=== PATIENT | female | born 1960 | race Caucasian/White ===

== ENCOUNTER → 2017-05-01 15:41 | Outpatient (CLI) | payer OTHER, SELFPAY ==
[2017-05-01 16:19] LABS: Hemoglobin 12.4 g/dl (12.0-15.0); Mean Corp Hgb Conc 32.6 g/gl (32-36); Mean Corpuscular Hgb 30.1 pg (27.0-32.0); Mean Corpuscular Volume 92.2 fL (81-99); Platelet Count 207 K/mm3 (150-450); RBC Distribution Width CV 13.4 % (11.6-14.6); Red Blood Count 4.12 M/mm3 (4.2-5.4); White Blood Count 6.8 K/mm3 (4.4-11.0)
[2017-05-01 16:20] LABS: Scan Indicated on CBC? Y/N NO
[2017-05-01 16:44] LABS: ALB/GLOB Ratio 1.1 RATIO (0.9-2.4); AST(SGOT) 30 U/L (15-37); Alanine Aminotransfer ALT/SGPT 44 U/L (13-56); Albumin, Serum 3.7 g/dL (3.2-5.0); Alkaline Phosphatase 125 U/L (45-117); Anion Gap 8 (5-15); BUN 13 mg/dL (7-18); BUN/Creat Ratio 21.4 RATIO (10-20); Calcium,Total 8.7 mg/dL (8.5-10.1); Chloride 102 mmol/L (98-107); Creatinine, Serum 0.61 mg/dL (0.55-1.02); EST Glomerular Filtration Rate 108 mL/min (>60); Est Glom Filt Rate - Afr Amer 131 mL/min (>60); Globulin 3.5 g/dL (2.2-4.2); Glucose 85 mg/dL (74-106); Potassium 3.1 mmol/L (3.5-5.1); Protein, Total 7.2 g/dL (6.4-8.2); Sodium Level 140 mmol/L (136-145)
[2017-05-02 09:42] LABS: Vitamin B12 751 pg/mL (211-911); Vitamin D,25 Hydroxy 72.6 ng/mL (29.95-100.01)
== END ==
PROVIDERS: Family Provider Family Medicine; PCP Family Medicine; Visit Provider Family Medicine
DX: E78.5 Hyperlipidemia, unspecified (principal); E53.8 Deficiency of other specified B group vitamins; E55.9 Vitamin D deficiency, unspecified
CPT/HCPCS: 36415; 80053; 82306; 82607; 85027

== ENCOUNTER → 2017-05-12 15:06 | Outpatient (CLI) | payer OTHER, SELFPAY ==
[2017-05-12 18:12] LABS: Anion Gap 9 (5-15); BUN 14 mg/dL (7-18); BUN/Creat Ratio 15.6 RATIO (10-20); Calcium,Total 8.6 mg/dL (8.5-10.1); Chloride 103 mmol/L (98-107); EST Glomerular Filtration Rate 69 mL/min (>60); Est Glom Filt Rate - Afr Amer 83 mL/min (>60); Glucose 80 mg/dL (74-106); Potassium 3.7 mmol/L (3.5-5.1); Sodium Level 138 mmol/L (136-145)
== END ==
PROVIDERS: Family Provider Family Medicine; PCP Family Medicine; Visit Provider Family Medicine
DX: I10 Essential (primary) hypertension (principal)
CPT/HCPCS: 36415; 80048

== ENCOUNTER → 2017-10-24 14:48 | Outpatient (CLI) | payer OTHER, SELFPAY ==
[2017-10-24 17:33] LABS: ALB/GLOB Ratio 1.1 RATIO (0.9-2.4); AST(SGOT) 25 U/L (15-37); Alanine Aminotransfer ALT/SGPT 31 U/L (13-56); Albumin, Serum 3.6 g/dL (3.2-5.0); Alkaline Phosphatase 110 U/L (45-117); Anion Gap 10 (5-15); BUN 18 mg/dL (7-18); BUN/Creat Ratio 24.8 RATIO (10-20); Calcium,Total 8.6 mg/dL (8.5-10.1); Chloride 103 mmol/L (98-107); Creatinine, Serum 0.73 mg/dL (0.55-1.02); EST Glomerular Filtration Rate 88 mL/min (>60); Est Glom Filt Rate - Afr Amer 106 mL/min (>60); Globulin 3.2 g/dL (2.2-4.2); Glucose 76 mg/dL (74-106); Potassium 3.5 mmol/L (3.5-5.1); Protein, Total 6.8 g/dL (6.4-8.2); Sodium Level 141 mmol/L (136-145); Thyroid Stim Hormone (TSH) 1.65 uIU/mL (0.358-3.74)
[2017-10-24 17:36] LABS: Vitamin B12 > 2000 pg/mL (211-911)
== END ==
PROVIDERS: Family Provider Family Medicine; PCP Family Medicine; Visit Provider Family Medicine
DX: I10 Essential (primary) hypertension (principal); E55.9 Vitamin D deficiency, unspecified; G47.00 Insomnia, unspecified
CPT/HCPCS: 36415; 80053; 82607; 82652; 84443

== ENCOUNTER → 2017-11-14 15:28 | Outpatient (CLI) | payer OTHER, SELFPAY ==
--- NOTE | 2017-11-14 15:33 | BI_ITS ---
MAMMOGRAPHY - BILATERAL SCREENING 3-D SANDRA SYNTHESIS REASON FOR EXAM: Female, 57 years old. Bilateral Screening 3-D tomosynthesis PERTINENT HISTORY: Current esterase since 2017. Loss 15 pounds. Left stereotactic biopsy 2009. No significant family history. TECHNIQUE: 2-D mammograms and 3-D Sandra synthesis of the breast (s) were performed. CAD was performed. COMPARISON: 11/04/2016. FINDINGS: The breast composition is almost entirely fat. Scattered benign calcifications are seen. No dense spiculated dominant masses or suspicious microcalcification cluster are identified. No new architectural distortion, asymmetric density, adenopathy, skin thickening or nipple retraction identified. There has been no significant change identified since the prior study. BI/SCREENING MAMM (CAD), BILAT IMPRESSION: No mammographic sign of malignancy. Routine yearly mammograms recommended. ASSESSMENT CATEGORY: BIRADS Category 2: Benign. A letter regarding these results will be sent to the patient by the facility within 30 days. FOLLOW UP RECOMMENDATION: Yearly follow up mammogram recommended. (A) Negative mammographic results should not deter biopsy as a palpable lesion if present should be followed based on clinical grounds and biopsy performed if clinically persistent for 3 months or increasing size. Approximately 10% of breast cancers are not detected by mammography. A normal mammogram should not delay biopsy of a clinically suspicious abnormality. Dense breast tissue may obscure neoplasm. Electronically Signed: Surya Lam, at 20:51 EDT Tel , Service support ,
== END ==
PROVIDERS: Family Provider Family Medicine; PCP Family Medicine
DX: Z12.31 Encounter for screening mammogram for malignant neoplasm of breast (principal)
CPT/HCPCS: 77063; 77067

== ENCOUNTER → 2018-02-11 11:09 | Outpatient (CLI) | payer OTHER, SELFPAY ==
[2018-02-11 13:15] LABS: Absolute Lymphocyte Count 1.09 X10^3/ul (0.83-4.51); Absolute Neutrophil Count 4.9 X10^3/uL (2.0-7.7); Basophil# 0.05 X10^3/uL; Basophil% 0.8 % (0-1); Eosinophil# 0.13 X10^3/uL; Hematocrit 35.3 % (37-47); Hemoglobin 11.1 g/dl (12.0-15.0); Lymphocyte # 1.09 X10^3/ul (4.0); Lymphocyte % 16.5 % (19-41); Mean Corp Hgb Conc 31.4 g/gl (32-36); Mean Corpuscular Volume 92.2 fL (81-99); Mean Platelet Vol. 12.2 fl (6.2-12.0); Monocyte# 0.49 X10^3/uL; Monocyte% 7.4 % (0-10); Neutrophil # 4.85 X10^3/uL (2.7-7.7); Neutrophil % 73.3 % (47-70); Platelet Count 254 K/mm3 (150-450); RBC Distribution Width CV 13.4 % (11.6-14.6); Red Blood Count 3.83 M/mm3 (4.2-5.4); White Blood Count 6.6 K/mm3 (4.4-11.0)
[2018-02-11 13:16] LABS: Erythrocyte Sedimentation Rate 34 mm/hr (0-30); POSITIVE COUNT NO; POSITIVE DIFFERENTIAL NO; POSITIVE MORPHOLOGY NO
[2018-02-11 13:36] LABS: ALB/GLOB Ratio 0.9 RATIO (0.9-2.4); AST(SGOT) 22 U/L (15-37); Alanine Aminotransfer ALT/SGPT 33 U/L (13-56); Albumin, Serum 3.2 g/dL (3.2-5.0); Alkaline Phosphatase 135 U/L (45-117); Anion Gap 9 (5-15); BUN 12 mg/dL (7-18); BUN/Creat Ratio 19.9 RATIO (10-20); Calcium,Total 8.6 mg/dL (8.5-10.1); Chloride 102 mmol/L (98-107); EST Glomerular Filtration Rate 109 mL/min (>60); Est Glom Filt Rate - Afr Amer 132 mL/min (>60); Globulin 3.5 g/dL (2.2-4.2); Glucose 86 mg/dL (74-106); Iron 80 ug/dL (50-170); Potassium 3.9 mmol/L (3.5-5.1); Protein, Total 6.7 g/dL (6.4-8.2); Sodium Level 138 mmol/L (136-145); Thyroid Stim Hormone (TSH) 3.15 uIU/mL (0.358-3.74)
[2018-02-11 16:05] LABS: Vitamin B12 818 pg/mL (211-911); Vitamin D,25 Hydroxy 57.1 ng/mL (29.95-100.01)
== END ==
PROVIDERS: Family Provider Family Medicine; PCP Family Medicine; Visit Provider Family Medicine
DX: R20.2 Paresthesia of skin (principal); R68.89 Other general symptoms and signs; E55.9 Vitamin D deficiency, unspecified; E53.8 Deficiency of other specified B group vitamins
CPT/HCPCS: 36415; 80053; 82306; 82607; 83540; 83735; 84443; 85025; 85652

== ENCOUNTER 2018-05-25 16:30 | Outpatient (RCR) | payer OTHER, SELFPAY | END 2018-05-25 23:59 | disposition home or self-care (01) | LOC: NS 16:30 | PROVIDERS: Family Provider Family Medicine; PCP Family Medicine; Visit Provider Family Medicine | DX: E66.9 Obesity, unspecified (principal); Z68.43 Body mass index [BMI] 50.0-59.9, adult; Z71.3 Dietary counseling and surveillance | CPT/HCPCS: 97802; 97803 ==

== ENCOUNTER → 2018-11-19 16:16 | Outpatient (CLI) | payer OTHER, SELFPAY ==
[2018-11-19 17:40] LABS: Hematocrit 35.7 % (37-47); Hemoglobin 11.5 g/dL (12.0-15.0); Mean Corp Hgb Conc 32.2 g/dL (32-36); Mean Corpuscular Volume 90.2 fL (81-99); Platelet Count 249 K/mm3 (150-450); RBC Distribution Width CV 12.9 % (11.6-14.6); RBC Distribution Width SD 42.5 fl (35.1-43.9); Red Blood Count 3.96 M/mm3 (4.2-5.4); White Blood Count 7.5 K/mm3 (4.4-11.0)
[2018-11-19 18:12] LABS: ALB/GLOB Ratio 0.9 RATIO (0.9-2.4); AST(SGOT) 22 U/L (15-37); Alanine Aminotransfer ALT/SGPT 26 U/L (13-56); Albumin, Serum 3.5 g/dL (3.2-5.0); Alkaline Phosphatase 126 U/L (45-117); Anion Gap 8 (5-15); BUN 13 mg/dL (7-18); BUN/Creat Ratio 20.1 RATIO (10-20); Calcium,Total 8.9 mg/dL (8.5-10.1); Chloride 101 mmol/L (98-107); Creatinine, Serum 0.65 mg/dL (0.55-1.02); EST Glomerular Filtration Rate 100 mL/min (>60); Est Glom Filt Rate - Afr Amer 121 mL/min (>60); Globulin 3.8 g/dL (2.2-4.2); Glucose 83 mg/dL (74-106); Iron 58 ug/dL (50-170); Potassium 3.1 mmol/L (3.5-5.1); Protein, Total 7.3 g/dL (6.4-8.2); Sodium Level 138 mmol/L (136-145)
[2018-11-19 18:20] LABS: Vitamin B12 460 pg/mL (211-911); Vitamin D,25 Hydroxy 45.7 ng/mL (29.95-100.01)
== END ==
PROVIDERS: Family Provider Family Medicine; PCP Family Medicine; Referring Provider Family Medicine; Visit Provider Family Medicine
DX: D64.9 Anemia, unspecified (principal); I10 Essential (primary) hypertension; E53.8 Deficiency of other specified B group vitamins; E55.9 Vitamin D deficiency, unspecified
CPT/HCPCS: 36415; 80053; 82306; 82607; 83540; 85027

== ENCOUNTER → 2019-06-21 11:31 | Outpatient (CLI) | payer OTHER, SELFPAY ==
--- NOTE | 2019-06-21 11:36 | RAD_ITS ---
STUDY: X-RAY - RIGHT SHOULDER REASON FOR EXAM: Female, 59 years old. Pain, numbness/tingling TECHNIQUE: 4 view(s) of the shoulder. COMPARISON: None. FINDINGS: Normal glenohumeral articulation. There is degenerative arthrosis of the acromioclavicular joint without inferior osseous spur formation. Normal acromion. Normal humeral head and visualized proximal humerus. There is periarticular soft tissue calcification consistent with a calcific tendinitis. Normal visualized pulmonary apex. RAD/Shoulder min 2 Views IMPRESSION: Calcific tendinitis. Degenerative changes of the acromioclavicular joint. Electronically Signed: Jorge Herrmann, at 15:32 EDT , Service support ,
--- NOTE | 2019-06-21 11:36 | RAD_ITS ---
STUDY: X-RAY - LEFT SHOULDER REASON FOR EXAM: Female, 59 years old. Pain, numbness, tingling TECHNIQUE: 4 view(s) of the shoulder. COMPARISON: None. FINDINGS: Normal glenohumeral articulation. There is degenerative arthrosis of the acromioclavicular joint without inferior osseous spur formation. Normal acromion. Normal humeral head and visualized proximal humerus. There is periarticular soft tissue calcification consistent with a calcific tendinitis. Normal visualized pulmonary apex. RAD/Shoulder min 2 Views IMPRESSION: Calcific tendinitis. Degenerative changes of the acromioclavicular joint. Electronically Signed: Jorge Herrmann, at 15:31 EDT , Service support ,
--- NOTE | 2019-06-21 11:37 | RAD_ITS ---
STUDY: X-RAY - CERVICAL SPINE REASON FOR EXAM: Female, 59 years old. Neck pain, numbness and tingling in arms TECHNIQUE: 5 view(s) of the cervical spine were obtained including oblique views. COMPARISON: None FINDINGS: There are degenerative changes of the anterior atlantoaxial articulation. Normal odontoid process. Normal cervical lordosis. There is multi-level endplate spondylosis. There is multi-level degenerative disc disease with multilevel disc space narrowing. Facet joint osteoarthritis. There is evidence of prior anterior listhesis of C4 on C5 most likely secondary to the facet joint arthritis. Left-sided neural foraminal stenosis in the lower cervical spine. The soft tissue structures are unremarkable. RAD/Cerv Spine 4 or 5 Views IMPRESSION: Multilevel spondylosis and disc space narrowing. Anterior listhesis of C4 on C5 most likely secondary to the facet joint osteoarthritis. Findings suggestive of a left-sided neural foraminal stenosis involving the lower cervical spine. Electronically Signed: Jorge Herrmann, at 15:37 EDT , Service support ,
== END ==
PROVIDERS: PCP Family Medicine; Referring Provider Family Medicine; Visit Provider Family Medicine
DX: M54.2 Cervicalgia (principal); M25.512 Pain in left shoulder; M25.511 Pain in right shoulder
CPT/HCPCS: 72050; 73030

== ENCOUNTER 2019-09-15 12:00 | Outpatient (RCR) | payer OTHER, SELFPAY ==
--- NOTE | 2019-06-28 12:50 | HP.PTEVAL_ITS ---
Patient's Visit Information SHAHZAD LAY is a 59 year old F referred to Physical Therapy by Dr. Milton Aparicio MD with a diagnosis of CERVCIAL SPINE OSTEOARTHRITIS.. Date of Evaluation: 06/28/19 Physical Therapist: Natalie Caraballo PT, Cert MDT - Visit Plan Frequency: 2-3x /Week Duration: 4-6 Weeks Plan: TRIAL OF MANUAL CTX AND CONSISDER MECHANICAL TX. US, E-STIM, MH, POSTURE CORRECTION/STRENGTHENING, INSTRUCTION IN APPROPRIATE BODY MECHANICS AND ACTIVITY MODIFICATIONS. SHALONDA UE ROM, STRETCHING AND STRENGTHENING. HEP INSTRUCTION. - Subjective Diagnosis: OA OF NECK. Work/Leisure: WORK IN THE [employer] AT THE [employer]. 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 LIKES TO DO A LOT OF CRAFTS. Disability: NO. Present symptoms: SHALONDA NECK PAIN. CONSTANT OR NEAR CONSTANT SHALONDA UE NUMBNESS AND TINGLING. SHALONDA FOREARM MUSCLE CRAMPS LEFT > RIGHT. SHALONDA UE WEAKNESS. DROPPING THINGS. Present since: ABOUT A YEAR. PROGRESSIVELY GETTING WORSE. Pain Scale: Worst - 7/10 Least - 4/10. Currently: 4/10. Commenced as a result of: NO APPARENT REASON. Symptoms at onset: NUMBNESS IN RIGHT INDEX FINGER AND THUMB. Worse: TRYING TO LIFT HEAVY THINGS, PROLONGED SITTING, PUTTING DISHES AWAY, LIFTING A GALLON OF MILK, WASHING HAIR. Better: NOTHING. Disturbed sleep: YES. Previous history/Previous treatment: UNREMARKABLE PRIOR TO A YEAR AGO. This episode: NONE. Dizziness: ONCE IN AWHILE. Tinnitis: NO. Nausea: NO. Shortness of Breath: NO. Difficulty Swollowing: NO. Gait: PATIENT REPORTS SHE HAS TO WATCH EVERY STEP SHE TAKES AND WALKS SLOW SO SHE DOESN'T TRIP. SHE LOOSES HER BALANCE. USUALLY HAS A CANE WITH HER TO USE NEEDED. ABLE TO GO TO THE GROCERY STORE WITHOUT CANE. ABLE TO WORK WITHOUT CANE. SEVERE SHALONDA KNEE ARTHRIITS. Accidents: NO. Unexplained weight loss: NO. Imaging: RECENT NECK AND SHLD X-RAYS SHOWING OA OF THE NECK PER PATIENT REPORT. [facility] EMR: Multilevel spondylosis and disc space narrowing. Anterior listhesis of C4 on C5 most likely secondary to the facet joint. osteoarthritis. Findings suggestive of a left-sided neural foraminal stenosis involving the. lower cervical spine. PMH/Recent major surgery: SEVERE SHALONDA KNEE OA, GASTRIC BYPASS SX 2008, 2017 PARTIAL HYSTERECTOMY, HTN, DEPRESSION - Objective Sitting Posture/Standing Posture: POOR. FORWARD HEAD AND ROUNDED SHLD'S. Active Correction of posture: BETTER. Other Observations: INDEP ANTALGIC SLOW GAIT INTO PT WITHOUT ANY ASSISTIVE DEVICES WITH A WADDLE TYPE PATTERN. NO LOB. Motor deficit: SHALONDA UE WEAKNESS. RIGHT UE DOMINANT. 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 SHALONDA UE STRENGTH GROSSLY 3+/5 TO 4-/5. Sensory deficit: DECREASED SHALONDA UE LIGHT TOUCH SENSATION INCLUDING ARMS, FOREARMS, HANDS AND FINGERS. ROM deficit: APPROX 30% DECREASED SHALONDA UE ROM. PATIENT REPORTS SHE HAS HAD LIMITED UE ROM FOR A LONG TIME BUT IT IS PROGRESSIVELY GETTING WORSE. Reflexes: NT. Dural Signs: POSITIVE SHALONDA UE'S. Cervical Mvmt Loss: Flex: MIN - PULLING. Pro: NIL. Ext: MOD - INCREASES SHALONDA NECK PAIN. INCREASES SHALONDA UE SX'S. Ret: ELZA - INCREASES SHALONDA NECK PAIN. INCREASES SHALONDA UE SX'S. RSB: MOD - PULLING DOWN IN LEFT SHLD. LSB: MOD - PULLING ON THE RIGHT SHLD. R Rot: MOD - I FEEL IT RUSHING DOWN MY ARMS AGAIN. L Rot: MOD - SAME THING. Postural strength: POOR. OTHER: SEATED CERVICAL DISTRACTION TESTING - MILD DECREASE IN SX'S WITH DISTRACTION BUT SX'S RETURN IMMEDIATELY. Palpation: TENDERNESS WITH LIGHT PALPATION OF SHALONDA NECK AND SHOULDERS. OTHER: PATIENT MAY BENEFIT FROM CERVICAL MRI AND SPECIALIST CONSULT. TREATMENT: NEUROMUSCULAR REEDUCATION - RETRAINING OF MVMT AND POSTURE FOR SITTING, LYING AND STANDING ACTIVITIES. - Goals Goal 1:: DECREASE C/O NECK PAIN AND SHALONDA UE SX'S. Goal Time Frame: 4-6 Weeks Goal 2:: IMPROVE personal care, lifting, walking, sitting, standing, sleep, social life, travel, work and homemaking function. Goal Time Frame: 4-6 Weeks Goal 3:: INSTRUCT IN PROPHYLAXIS Goal Time Frame: 4-6 Weeks - Anticipated Interventions Patient/Client Instruction: Educate patient on: Condition, Plan of Care, Risk Factors, Benefits of Fitness Program For the Purpose of:: To improve self management Therapeutic Exercise to Include: Strength training, Endurance training, Body mechanics, Postural training, Flexibilty training, Neuromotor development, Active ROM, Scapular Strength/Stabilization For the Purpose of:: To decrease pain, To increase ROM, To improve muscle performance and motor function, To increase tolerance to activity/condition/pos ition, To improve ability of physical actions for home/community/work/leisure Manual Therapy Techniques to Include: Mobilization For the Purpose of:: To decrease pain, To increase ROM, To improve nutrient delivery to tissue TENS: Yes IF ES: Yes Cryotherapy (ice pack, ice massage): Yes Thermo therapy (hot pack): Yes Ultrasound (thermal/non thermal): Yes Intermittent cervical traction: Yes - TRY MANUAL FIRST For the Purpose of:: To decrease pain, To improve nutrient delivery to tissue Thank you for the opportunity to evaluate your patient. For Medicare and Medicare HMO plans, please review the plan of care and approve it. It will need to be FAXED BACK to us at [phone] for Medicare purposes. For Medicare only, by signing this I certify the plan of care. Please let me know if there are questions or concerns regarding this plan of care. Physician Signature: Date:
--- NOTE | 2019-09-15 12:49 | HP.PTREVAL_ITS ---
Dr. Milton Gallo MD, It has been my pleasure to treat SHAHZAD LAY over the last 6 visits for CERVCIAL SPINE OSTEOARTHRITIS.. Please see the progress note below for an update on the physical therapy plan of care! Subjective: PATIENT REPORTS SHE STOPPED COMING TO PT DUE TO THE VIRUS. STATES SHE WENT OUT OF STATE ON VACATION AND SHE TRIED TO SELF QUANTINE TO NOT PASS IT TO OTHERS. PATIENT REPORTS THE NUMBNESS IS GOING DOWN HER LEGS NOW TOO. GOES DOWN THE INSIDES OF HER LEGS TO HER TOES NOW. SOMETHING IS REALLY WRONG. STATES THIS STARTED HAPPENING MAINLY AFTER VACATION (ABOUT August) AND IS STEADILY GETTING WORSE. STATES SHE HAS NOT FOLLOWED UP WITH DR. GALLO SINCE BEFORE GOING ON VACATION. STATES SHE SAW DR. GALLO BEFORE VACATION AND SHE TOLD HIM ABOUT GETTING A LITTLE DIZZY AFTER THE TRACTION MACHINE AND SHE STATES HE TOLD HER SHE SHOULD TRY IT AGAIN ANYWAY. PATIENT ALSO REPORTS FALLING TWICE ON VACATION THAT SHE RELATES TO HER KNEES GIVING OUT. STATES SHE WAS MORE EMBARRED THAN HURT IN THE FALLS. PATIENT REPORTS THE NUMBESS IS SPREAD OF HER WHOLE HANDS NOW BILATERALLY. PATIENT REPORTS AN EPISODE OF RIGHT LE SPASMING FOR AN HOUR THAT PUT HER IN TEARS ON THE WAY DOWN TO [place]. ON THE WAY HOME IT DID IT FOR 3 HOURS STRAIGHT. PATIENT REPORTS WHEN SHE ARRIVED IN [place] SHE CALLED DR. GALLO AND HE TOLD HER TO DRINK WATER AND TOLD HER HE THOUGHT IT WAS DEHYDRATION. PATIENT REPORTS SHE CAN'T EVEN USE HER LEFT UE TO WASH HER HAIR NOW AND SHE IS NOT EVEN ABLE TO LIFT THE OJ TO PUT IT BACK IN THE FRIG NOW. PATIENT REPORTS SHE WILL CONTINUE PT IF DR. GALLO WANTS HER TO BUT IT WAS NOT HELPING. STATES SHE GOT REALLY FRUSTRATED TRYING TO EVEN SEW. Objective/Function: PATIENT WAS SEEN TODAY FOR RE-ASSESSMENT OF PROGRESS TOWARD THE SET PT GOALS AND THE NEED FOR FURTHER PHYSICAL THERAPY VS READINESS FOR DISCHARGE. PATIENT HAS HAD TWO FALLS, IS REPORTING WORSENING OF UE SX'S AND HAS NEW ONSET OR WORSENING OF LE SX'S SEEN LAST PHYSICAL THERAPY SESSION AND SINCE LAST PHYSICIAN VISIT. SHE IS APPROPRIATE FOR PHYSICIAN RE-ASSESSMENT PRIOR TO RE-STARTING PT. PATIENT IS AGREEABLE. Plan Plan: CONSIDER TX AGAIN, US, E-STIM, MH, POSTURE CORRECTION/STRENGTHENING, INSTRUCTION IN APPROPRIATE BODY MECHANICS AND ACTIVITY MODIFICATIONS. SHALONDA UE ROM, STRETCHING AND STRENGTHENING. HEP INSTRUCTION. Goals Goal 1:: DECREASE C/O NECK PAIN AND SHALONDA UE SX'S. Goal Time Frame: 4-6 Weeks Goal Progress: Not Progressing Goal 2:: IMPROVE personal care, lifting, walking, sitting, standing, sleep, social life, travel, work and homemaking function. Goal Time Frame: 4-6 Weeks Goal Progress: Not Progressing Goal 3:: INSTRUCT IN PROPHYLAXIS Goal Time Frame: 4-6 Weeks Goal Progress: Not Progressing Anticipated Interventions Patient/Client Instruction: Educate patient on: Condition, Plan of Care, Risk Factors, Benefits of Fitness Program For the Purpose of:: To improve self management Therapeutic Exercise to Include: Strength training, Endurance training, Body mechanics, Postural training, Flexibilty training, Neuromotor development, Active ROM, Scapular Strength/Stabilization For the Purpose of:: To decrease pain, To increase ROM, To improve muscle performance and motor function, To increase tolerance to activity/condition/position, To improve ability of physical actions for home/community/work/leisure Manual Therapy Techniques to Include: Mobilization For the Purpose of:: To decrease pain, To increase ROM, To improve nutrient delivery to tissue TENS: Yes IF ES: Yes Cryotherapy (ice pack, ice massage): Yes Thermo therapy (hot pack): Yes Ultrasound (thermal/non thermal): Yes Intermittent cervical traction: Yes - TRY MANUAL FIRST For the Purpose of:: To decrease pain, To improve nutrient delivery to tissue Please do not hesitate to contact me at [phone] by phone or if you have questions or concerns regarding this new plan of care! Sincerely, Natalie Caraballo, PT, Cert MDT
--- NOTE | 2019-12-13 18:18 | HP.PT.NRP ---
SHAHZAD LAY was seen in my office for initial evaluation on 06/28/19. The following Plan of Care was established for this patient: Initial Frequency: 2-3x /Week Initial Duration: 4-6 Weeks Patient/Client Instruction: Educate patient on: Condition, Plan of Care, Risk Factors, Benefits of Fitness Program For the Purpose of:: To improve self management Therapeutic Exercise to Include: Strength training, Endurance training, Body mechanics, Postural training, Flexibilty training, Neuromotor development, Active ROM, Scapular Strength/Stabilization For the Purpose of:: To decrease pain, To increase ROM, To improve muscle performance and motor function, To increase tolerance to activity/condition/position, To improve ability of physical actions for home/community/work/leisure Manual Therapy Techniques to Include: Mobilization For the Purpose of:: To decrease pain, To increase ROM, To improve nutrient delivery to tissue TENS: Yes IF ES: Yes Cryotherapy (ice pack, ice massage): Yes Thermo therapy (hot pack): Yes Ultrasound (thermal/non thermal): Yes Intermittent cervical traction: Yes - TRY MANUAL FIRST For the Purpose of:: To decrease pain, To improve nutrient delivery to tissue This patient was last seen in our office 09/15/19. Pertinent comments regarding their Physical therapy will appear below: This patient has not returned to Physical Therapy and is appropriate to return to MD for further follow-up as needed. At this point I will be discontinuing this patient from physical therapy. I would be happy to see this patient again in the future if found appropriate by the physician. Thank you! Natalie Caraballo, PT, Cert MDT
== END 2019-09-15 19:00 | disposition home or self-care (01) ==
LOC: PT 12:00
PROVIDERS: PCP Family Medicine; Referring Provider Family Medicine; Visit Provider Family Medicine
DX: M47.812 Spondylosis without myelopathy or radiculopathy, cervical region (principal)
CPT/HCPCS: 97012; 97014; 97035; 97110; 97112; 97140; 97162; 97164; 97530; G0283

== ENCOUNTER → 2019-09-21 12:29 | Outpatient (CLI) | payer OTHER, SELFPAY ==
[2019-09-21 15:12] LABS: Absolute Lymphocyte Count 1.54 X10^3/uL (0.83-4.51); Absolute Neutrophil Count 6.7 X10^3/uL (2.0-7.7); Basophil# 0.08 X10^3/uL; Basophil% 0.9 % (0-1); Eosinophil# 0.26 X10^3/uL; Eosinophils% 2.8 % (0-5); Hematocrit 37.3 % (37-47); Hemoglobin 11.5 g/dL (12.0-15.0); Lymphocyte # 1.54 X10^3/ul (4.0); Lymphocyte % 16.5 % (19-41); Mean Corp Hgb Conc 30.8 g/dL (32-36); Mean Platelet Vol. 12.3 fl (6.2-12.0); Monocyte# 0.73 X10^3/uL; Monocyte% 7.8 % (0-10); NRBC Flagged by Analyzer 0 % (0-5); Neutrophil # 6.73 X10^3/uL (2.7-7.7); Neutrophil % 71.8 % (47-70); Platelet Count 352 K/mm3 (150-450); RBC Distribution Width SD 42.8 fl (35.1-43.9); White Blood Count 9.4 K/mm3 (4.4-11.0)
[2019-09-21 15:15] LABS: Erythrocyte Sedimentation Rate 23 mm/hr (0-30)
[2019-09-21 15:19] LABS: Vitamin B12 302 pg/mL (211-911); Vitamin D,25 Hydroxy 52.3 ng/mL
[2019-09-21 15:23] LABS: ALB/GLOB Ratio 0.9 RATIO (0.9-2.4); AST(SGOT) 21 U/L (15-37); Alanine Aminotransfer ALT/SGPT 32 U/L (13-56); Albumin, Serum 3.4 g/dL (3.2-5.0); Alkaline Phosphatase 143 U/L (45-117); Anion Gap 7 (5-15); BUN 17 mg/dL (7-18); BUN/Creat Ratio 23.9 RATIO (10-20); CRP 3.76 mg/L (0.0-3.0); Calcium,Total 8.5 mg/dL (8.5-10.1); Chloride 102 mmol/L (98-107); Creatinine, Serum 0.71 mg/dL (0.55-1.02); EST Glomerular Filtration Rate 90 mL/min (>60); Est Glom Filt Rate - Afr Amer 108 mL/min (>60); Globulin 3.7 g/dL (2.2-4.2); Glucose 104 mg/dL (74-106); Iron 122 ug/dL (50-170); Magnesium 2.4 mg/dL (1.6-2.6); Potassium 3.6 mmol/L (3.5-5.1); Protein, Total 7.1 g/dL (6.4-8.2); Sodium Level 138 mmol/L (136-145); Thyroid Stim Hormone (TSH) 2.74 uIU/mL (0.358-3.74)
[2019-09-23 12:54] LABS: ANTINUCLEAR ANTIBODIES DIRECT Negative (Negative)
== END ==
PROVIDERS: PCP Family Medicine; Visit Provider Family Medicine
DX: R25.2 Cramp and spasm (principal); R20.2 Paresthesia of skin
CPT/HCPCS: 36415; 80053; 82306; 82607; 83540; 83735; 84443; 85025; 85652; 86038; 86140

== ENCOUNTER → 2019-09-30 16:29 | Outpatient (CLI) | payer OTHER, SELFPAY ==
--- NOTE | 2019-09-30 16:35 | MRI_ITS ---
We are attempting to reach an attending provider to discuss findings. An addendum with communication details will be sent when the communication is complete. STUDY: MRI CERVICAL SPINE WITHOUT CONTRAST REASON FOR EXAM: Female, 59 years old. numbness, shooting pain into hands TECHNIQUE: Standardized fat and water weighted pulse sequences were obtained in the sagittal and axial planes. COMPARISON: Radiographs 06/21/2019 FINDINGS: Normal foramen magnum and brainstem-cervical cord junction. Normal craniovertebral junction. There are degenerative changes of the anterior atlantoaxial articulation. Normal odontoid process. C2-3: Disc osteophyte complex without compressive sequelae. C3-4: Disc osteophyte complex and bilateral facet hypertrophy with severe central canal stenosis and severe bilateral foraminal stenoses. Underlying cord compression is noted. C4-5: Disc osteophyte complex with moderate to severe central canal stenosis and severe bilateral foraminal stenoses. C5-6: Disc osteophyte complex with moderate central canal and bilateral foraminal stenoses. C6-7: Disc osteophyte complex with moderate central canal and bilateral foraminal stenoses. C7-T1: Disc osteophyte complex without compressive sequelae. Faint T2 hyperintensity is present in the cord substance at the C3-4 level, likely related to compressive myelopathy. Normal visualized soft tissue structures. MRI/Spine Cervical (Routine) IMPRESSION: Multilevel degenerative disease as described. Cord compression at the C3-4 level. 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 Electronically Signed: Harley Carmichael MD at 17:35 EDT Tel , Service support ,
== END ==
PROVIDERS: PCP Family Medicine; Referring Provider Family Medicine; Visit Provider Family Medicine
DX: M50.30 Other cervical disc degeneration, unspecified cervical region (principal)
CPT/HCPCS: 72141

== ENCOUNTER → 2020-02-18 | Outpatient (CLI) | payer OTHER, SELFPAY | END | disposition home or self-care (01) | LOC: LABSPEC 15:15 | PROVIDERS: PCP Family Medicine; Visit Provider Physician Assistant | DX: Z47.89 Encounter for other orthopedic aftercare (principal) | CPT/HCPCS: 87070; 87077; 87186; 87205 ==

== ENCOUNTER 2020-05-22 13:00 | Outpatient (RCR) | payer OTHER, SELFPAY ==
--- NOTE | 2020-04-27 13:28 | HP.PTEVAL ---
Patient's Visit Information ALYSIA LAY is a 60 year old F referred to Physical Therapy by Dr. Alysia Delgadillo MD with a diagnosis of C3-T1 FUSION 01/09/21 WITH ANTERIOR AND POSTERIOR APPROACHES.. Date of Evaluation: 04/27/20 Physical Therapist: Natalie Caraballo PT, Cert MDT - Visit Plan Frequency: 2x /Week Duration: 8 WKS Plan: POSTURE CORRECTION/STRENGTHENING, INSTRUCTION IN APPROPRIATE BODY MECHANICS AND ACTIVITY MODIFICATIONS. NECK AROM. SHALONDA UE ROM, STRETCHING AND STRENGTHENING. PROGRESS TO WORK SIMULATION ACTIVITIES. HEP INSTRUCTION. 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 LAST WORKED DEC 2019. TENTATIVE RETURN TO WORK DATE IS APPROX 05/31/20. Disability: NO. Present symptoms: NECK, SHALONDA SHLD, B ARM, B FOREARM PAIN. SHALONDA HAND AND FINGER CONSTANT NUMBNESS AND TINGLING AND ITCHY. PATIENT REPORTS HER HAND SX'S ARE GETTING WORSE AGAIN. REPORTS HER HAND SX'S WERE INTERMITTENT BUT NOW CONSTANT. REPORTS INCREASED NECK PAIN SINCE SHE STOPPED WEARING THE NECK COLLAR ABOUT A WEEK AGO SO PUTTING THE COLLAR BACK ON NEEDED. Present since: OVER A YEAR. Pain Scale: Worst - 9/10 Least - 2/10. Currently: 5/10. Commenced as a result of: NO APPARENT REASON. Symptoms at onset: RIGHT HAND AND ARM NUMBNESS. Worse: TURNING HEAD, REACHING, SOMETIMES JUST SITTING. Better: TIME AND TYLONOL. Disturbed sleep: YES - SLEEPING IN RECLINER. Previous history/Previous treatment: PHYSICAL THERAPY HERE AT [facility] PRIOR TO SURGERY. This episode: C3-T1 FUSION 01/10/20. Dizziness: SOMETIMES. Tinnitis: NO. Nausea: NO. Shortness of Breath: NO. Difficulty Swollowing: SOMETIMES. Gait: NO CHANGE. USING WALKER FOR SAFETY BECAUSE SHE CAN'T LOOK DOWN VERY WELL. PATIENT REPORTS HER LEGS AND WALKING GENERALLY DOES NOT FEEL ANY DIFFERENT NOW COMPARED TO BEFORE SURGERY. Accidents: NO. Unexplained weight loss: NO. Imaging: POST OP X-RAYS - PATIENT REPORTS SHE HAS BEEN TOLD EVERYTHING IS HEALING NORMALLY. PMH/Recent major surgery: SEVERE SHALONDA KNEE OA, GASTRIC BYPASS SX 2008, 2017 PARTIAL HYSTERECTOMY, HTN, DEPRESSION. OTHER: PATIENT REPORTS SHE WAS IN A NECK COLLAR FROM SURGERY UNTIL A WEEK AGO. STATES SHE IS ALLOWED TO START TURNING HER HEAD. PATIENT REPORTS SHE HAS BEEN REFERRED TO THERAPY TO GET READY TO GO BACK TO WORK IN ABOUT [address] DELGADILLO THINKS SHE WILL BE ABLE TO RETURN TO HER PRIOR JOB BUT SHE IS NOT SURE SHE WANTS TO. STATES SHE DROVE BY HERSELF FOR THE FIRST TIME TODAY. - Objective Posture: FORWARD HEAD AND ROUNDED SHOULDERS. Other Observations: INDEP ANTALGIC SLOW GAIT INTO PT WITH ROLLATOR AND A WADDLE TYPE PATTERN. NO LOB. INDEP TRANSFERS SIT TO STAND AND REVERSE BUT UE DEPENDENT TO DO SO. Motor deficit: SHALONDA UE WEAKNESS. RIGHT UE DOMINANT. RIGHT MANAGER STAR STRENGTH 25 LBS, LEFT 20 LBS. SHALONDA UE STRENGTH GROSSLY 3+/5 TO 4-/5. THIS PT PROCEEDED CAREFULLY WITH ALL TESTING. Sensory deficit: SHALONDA UE LIGHT TOUCH SENSATION INCLUDING ARMS, FOREARMS, HANDS AND FINGERS INTACT AND SYMMETRICAL PER PATIENT REPORT EVEN THOUGH HAS NUMBNESS AND TINGLING. PATIENT DOES HAVE DECREASED LIGHT TOUCH SENSATIO AROUND ANTERIOR AND POSTERIOR NECK INCISIONS. ROM deficit: APPROX 30% DECREASED SHALONDA SHLD ELEVATION. PATIENT REPORTS SHE HAS HAD LIMITED UE ROM FOR A LONG TIME. ONE ARM TESTED AT A TIME. Reflexes: SHALONDA UE'S 2/3. Cervical Mvmt Loss: Flex: MIN - PULLING. Pro: NIL. Ext: ELZA. Ret: ELZA. RSB: MOD. LSB: MOD. R Rot: MOD TO ELZA. L Rot: MOD TO ELZA. PATIENT C/O PULLING AND SHAKING IN NECK MUSCLES WITH CERVICAL ROM TESTING ALL PLANES BUT NO SHARP OR SHOOTING PAINS. PATIENT DENIES INCREASED UE SX'S WITH NECK ROM TESTING. Postural strength: POOR. Palpation: ANTERIOR AND POSTERIOR CERVICAL INCISIONS LOOK GOOD WITHOUT ANY SIGNS OF INFECTION. TREATMENT: NEUROMUSCULAR REEDUCATION - RETRAINING OF MVMT AND POSTURE FOR SITTING, LYING AND STANDING ACTIVITIES. INSTRUCTION IN WALKING PROGRAM. - Goals Goal 1:: DECREASE C/O NECK AND SHALONDA UE SX'S. Goal Time Frame: 6-8 Weeks Goal 2:: IMPROVE PERSONAL CARE, LIFTING, READING, SLEEP, WORK, DRIVING AND RECREATIONAL FUNCTION. Goal Time Frame: 6-8 Weeks Goal 3:: INSTRUCT IN PROPHYLAXIS Goal Time Frame: 6-8 Weeks - Anticipated Interventions Patient/Client Instruction: Educate patient on: Condition, Plan of Care, Risk Factors For the Purpose of:: To improve self management Therapeutic Exercise to Include: Strength training, Body mechanics, Postural training, Neuromotor development, Active ROM, Scapular Strength/Stabilization For the Purpose of:: To decrease pain, To increase ROM, To improve muscle performance and motor function, To increase tolerance to activity/condition/position, To improve ability of physical actions for home/community/work/leisure Thank you for the opportunity to evaluate your patient. For Medicare and Medicare HMO plans, please review the plan of care and approve it. It will need to be FAXED BACK to us at [phone] for Medicare purposes. For Medicare only, by signing this I certify the plan of care. Please let me know if there are questions or concerns regarding this plan of care. Physician Signature: Date:
== END 2020-05-22 19:00 | disposition home or self-care (01) ==
LOC: PT 13:00
PROVIDERS: PCP Family Medicine; Referring Provider Orthopaedic Surgery; Visit Provider Orthopaedic Surgery
DX: M54.2 Cervicalgia (principal); Z98.1 Arthrodesis status
CPT/HCPCS: 97110; 97112; 97162; 97530

== ENCOUNTER → 2020-05-29 14:51 | Outpatient (CLI) | payer OTHER, SELFPAY ==
--- NOTE | 2020-05-29 15:36 | RAD_ITS ---
STUDY: X-RAY - LEFT CLAVICLE REASON FOR EXAM: Female, 60 years old. FALL WITH INJURY TECHNIQUE: 2 view(s) of the clavicle. COMPARISON: None. FINDINGS: Normal clavicle. There is degenerative arthrosis of the acromioclavicular joint without inferior osseous prominence. Normal visualized sternoclavicular articulation. Fusion hardware of the lower cervical spine. Normal visualized pulmonary apex. RAD/Clavicle IMPRESSION: No demonstrated fracture. Acromioclavicular joint arthrosis. Electronically Signed: Joshua Arnold MD ([place]) at 16:16 EDT , Service support ,
--- NOTE | 2020-05-29 15:36 | RAD_ITS ---
STUDY: X-RAY - LEFT SHOULDER REASON FOR EXAM: Female, 60 years old. FALL WITH INJURY, pain TECHNIQUE: 3 view(s) of the shoulder. COMPARISON: None. FINDINGS: Normal glenohumeral articulation. There is degenerative arthrosis of the acromioclavicular joint without inferior osseous spur formation. Normal acromion. Normal humeral head and visualized proximal humerus. The soft tissue structures are unremarkable. Normal visualized pulmonary apex. Fusion hardware of the cervical spine. RAD/Shoulder min 2 Views IMPRESSION: Acromioclavicular joint arthrosis. No demonstrated fracture or malalignment. Electronically Signed: Joshua Arnold MD ([place]) at 16:15 EDT , Service support ,
[2020-05-29 17:54] LABS: Absolute Lymphocyte Count 1.23 X10^3/uL (0.83-4.51); Absolute Neutrophil Count 5.7 X10^3/uL (2.0-7.7); Basophil# 0.08 X10^3/uL; Eosinophil# 0.15 X10^3/uL; Eosinophils% 1.9 % (0-5); Hematocrit 36.7 % (37-47); Lymphocyte # 1.23 X10^3/ul (0.83-4.51); Lymphocyte % 15.9 % (19-41); Mean Corpuscular Hgb 27.4 pg (27.0-32.0); Mean Corpuscular Volume 91.5 fL (81-99); Mean Platelet Vol. 12.7 fl (6.2-12.0); Monocyte# 0.58 X10^3/uL; Monocyte% 7.5 % (0-10); NRBC Flagged by Analyzer 0 % (0-5); Neutrophil # 5.68 X10^3/uL (2.7-7.7); Neutrophil % 73.3 % (47-70); Platelet Count 275 K/mm3 (150-450); RBC Distribution Width CV 13.6 % (11.6-14.6); RBC Distribution Width SD 45.4 fl (35.1-43.9); Red Blood Count 4.01 M/mm3 (4.2-5.4); White Blood Count 7.8 K/mm3 (4.4-11.0)
[2020-05-29 18:00] LABS: Vitamin B12 365 pg/mL (211-911); Vitamin D,25 Hydroxy 41.2 ng/mL
[2020-05-29 18:03] LABS: ALB/GLOB Ratio 0.8 RATIO (0.9-2.4); AST(SGOT) 15 U/L (15-37); Alanine Aminotransfer ALT/SGPT 24 U/L (13-56); Albumin, Serum 3.3 g/dL (3.2-5.0); Alkaline Phosphatase 132 U/L (45-117); Anion Gap 6 (5-15); BUN 18 mg/dL (7-18); BUN/Creat Ratio 25.9 RATIO (10-20); Calcium,Total 8.5 mg/dL (8.5-10.1); Chloride 102 mmol/L (98-107); Cholesterol 155 mg/dL (200); EST Glomerular Filtration Rate 92 mL/min (>60); Est Glom Filt Rate - Afr Amer 111 mL/min (>60); Globulin 3.9 g/dL (2.2-4.2); Glucose 78 mg/dL (74-106); High Density Lipoprotein 60 mg/dL; Potassium 3.1 mmol/L (3.5-5.1); Protein, Total 7.2 g/dL (6.4-8.2); Sodium Level 138 mmol/L (136-145); Thyroid Stim Hormone (TSH) 2.35 uIU/mL (0.358-3.74); Triglycerides 113 mg/dL; Very Low Density Lipoprotein 23 mg/dL (5-40)
[2020-05-29 18:12] LABS: Microalbumin,Random Urine 9.1 mg/L (NO RANGE EST.); Microalbumin:Creatinine Ratio 8.2 mg/g CRE (<30 mg/g CRE)
== END ==
PROVIDERS: PCP Family Medicine; Referring Provider Family Medicine; Visit Provider Family Medicine
DX: M19.012 Primary osteoarthritis, left shoulder (principal); W19.XXXA Unspecified fall, initial encounter; I10 Essential (primary) hypertension; E53.8 Deficiency of other specified B group vitamins; R60.0 Localized edema; E55.9 Vitamin D deficiency, unspecified
CPT/HCPCS: 36415; 73000; 73030; 80053; 80061; 82043; 82306; 82570; 82607; 84443; 85025

== ENCOUNTER → 2020-06-15 17:30 | Outpatient (CLI) | payer OTHER, SELFPAY ==
[2020-06-06 09:02] VITALS: BMI 45.7
[2020-06-14 08:12] VITALS: BMI 45.7
--- NOTE | 2020-06-15 17:34 | MRI_ITS ---
STUDY: MRI CERVICAL SPINE WITH AND WITHOUT CONTRAST REASON FOR EXAM: Female, 60 years old. Pain following surgery -- TECHNIQUE: Standardized fat and water weighted pulse sequences were obtained in the sagittal and axial following administration of 20ML iv DOTAREM. COMPARISON: MRI cervical spine without contrast 09/30/2019. FINDINGS: Normal foramen magnum and brainstem-cervical cord junction. Normal craniovertebral junction. Normal anterior atlantoaxial articulation. Normal odontoid process. Mild decreased cervical kyphosis. Metallic plate with transfixing screws and disc implants at C3-C4 and C4-C5 disc space levels. Articular pillar screws and rods at C4 down to T1 causing signal distortion artifacts. C2-3: Normal endplates. Normal disc height, signal and morphology. Normal central canal and intervertebral neural foramina. C3-4: Metallic plate with several screws and disc implant. Capacious central canal following posterior decompression and fusion. Normal intervertebral neural foramina. C4-5: Metallic plate with transfixing screws reduce and disc implant. Articular pillar screws and rods causing signal distortion artifacts. Capacious central canal following posterior decompression. Normal intervertebral neural foramina. C5-6: Pronounced disc space height narrowing. Normal central canal and intervertebral neural foramina. Articular pillar screws at C5 and rods from C6 down to T1. They cause signal distortion artifacts. C6-7: Normal endplates. Mild disc space height narrowing. Capacious central canal from posterior decompression and normal intervertebral neural foramina. C7-T1: Normal endplates. Normal disc height and morphology. Normal central canal and intervertebral neuroforamina. T1-T2: Normal endplates. Minimal disc space height narrowing. Normal central canal and intervertebral neural foramina. Articular pillar screws and rods at the upper T1. T2-T3: (Sagittal only). Normal endplates. Mild disc space height narrowing. Minimal degenerative anterolisthesis of T2 on T3 is unchanged. Normal central canal and intervertebral neural foramina. T3-T4 and T4-T5: (Sagittal only). Normal endplates. Normal disc height and morphology. Normal central canal and intervertebral neural foramina. Signal distortion artifacts of the cervical spinal cord due to articular pillar screws and rods. There is contrast enhancement behind the laminectomy sites of the cervical spine. Normal visualized soft tissue structures. MRI/Spine Cervical W/WO Contrast IMPRESSION: 1. Interval improvement of cervical spinal stenosis following anterior interbody fusion and posterior decompression laminectomy. 2. Postoperative contrast enhancement behind the laminectomy sites. 3. No MRI evidence of cervical extruded disc fragment or spinal stenosis. 4. No other additional findings or changes when compared to 09/30/2019. Electronically Signed: Evin Howard MD at 16:19 EDT , Service support ,
== END ==
PROVIDERS: PCP Family Medicine; Referring Provider Orthopaedic Surgery; Visit Provider Orthopaedic Surgery
DX: M54.2 Cervicalgia (principal); Z98.1 Arthrodesis status
CPT/HCPCS: 72156; A9575

== ENCOUNTER → 2020-08-23 15:32 | Outpatient (CLI) | payer OTHER, SELFPAY ==
[2020-06-20 08:55] VITALS: BMI 45.7
--- NOTE | 2020-08-23 15:36 | MRI_ITS ---
STUDY: MRI LEFT SHOULDER REASON FOR EXAM: Female, 60 years old. pain, frequent falls, limited rom TECHNIQUE: Standardized fat and water weighted pulse sequences were obtained in all 3 orthogonal planes. COMPARISON: X-ray dated 06/14/2020. FINDINGS: Moderate supraspinatus and infraspinatus tendinosis. Partial tear of the supraspinatus/infraspinatus tendon insertion without high-grade or full-thickness rotator cuff tear (coronal image 10 series 6). Mild subscapularis tendinosis with deep fiber partial tear. Normal teres minor tendon. Advanced supraspinatus muscle atrophy (sagittal image 1 series 8). Mild infraspinatus and teres minor muscle atrophy. Normal subscapularis muscle. Moderate intracapsular long biceps tendinosis with medial subluxation. Fraying of the biceps labral anchor. Superior labral anterior to posterior tear (axial images 9 through 11 series 3). Capsular ligaments. Normal rotator cuff interval. Glenohumeral joint fluid physiologic. No subacromial or subdeltoid fluid. Mild glenohumeral cartilage loss. Advanced acromioclavicular joint arthrosis with anterior impingement. No acute fracture, dislocation or bone destruction. Intact coracohumeral and coracoacromial ligaments. Normal quadrilateral space. Normal axillary space. Normal deltoid muscle. Normal trapezius muscle. MRI/Upper Ext Joint Only(Routine) IMPRESSION: Low-grade partial thickness supraspinatus/infraspinatus/subscapularis tendon tears Rotator cuff tendinosis with advanced supraspinatus muscle atrophy Moderate intracapsular long biceps tendinosis with medial subluxation SLAP type II tear with fraying of the biceps labral anchor Advanced AC joint arthrosis with anterior impingement Electronically Signed: Piyush Olmos DO at 8:25 EDT Tel , Service support ,
== END ==
PROVIDERS: PCP Family Medicine; Referring Provider Orthopaedic Surgery; Visit Provider Orthopaedic Surgery
DX: S46.002A Unspecified injury of muscle(s) and tendon(s) of the rotator cuff of left shoulder, initial encounter (principal); Z98.1 Arthrodesis status
CPT/HCPCS: 73221

== ENCOUNTER → 2020-08-29 16:44 | Outpatient (CLI) | payer OTHER, SELFPAY ==
[2020-08-28 07:43] VITALS: BMI 45.7
[2020-09-02 14:18] LABS: HPV Reflexed? NOT INDICATED
== END ==
PROVIDERS: PCP Family Medicine; Visit Provider Registered Nurse
DX: Z01.419 Encounter for gynecological examination (general) (routine) without abnormal findings (principal)
CPT/HCPCS: 88175; G0145

== ENCOUNTER → 2020-09-19 14:54 | Outpatient (CLI) | payer OTHER, SELFPAY ==
[2020-08-28 07:43] VITALS: BMI 45.7
--- NOTE | 2020-09-19 14:56 | BI_ITS ---
MAMMOGRAPHY - BILATERAL SCREENING REASON FOR EXAM: Female, 60 years old. Routine annual screening examination. PERTINENT HISTORY: Non-contributory. Remote left stereotactic breast biopsy. TECHNIQUE: Digital bilateral breast sandra (3D mammographic acquisition) in the CC and MLO projections. 2-D mediolateral oblique (MLO) and craniocaudad (CC) views of both breasts were obtained. CAD: Full Field Digital Mammography with Computer Added Detection was performed. COMPARISON: Comparison is made with prior examination dated 11/14/2017 and 11/04/2016. FINDINGS: Breast Composition: The breasts are almost entirely fatty. There are no dominant masses or suspicious calcifications. A tissue clip marker is once again seen within a 7.9 mm nodule in the upper lateral portion of the left breast. No other significant abnormalities are identified. There has been no significant change since the prior study. BI/SCRN MAMM (CAD)W/SANDRA BILAT IMPRESSION: Stable bilateral screening mammogram. Yearly follow-up mammogram recommended. (A) ASSESSMENT CATEGORY: BIRADS Category 2: Benign. A letter regarding these results will be sent to the patient by the facility within 30 days. Approximately 10% of breast cancers are not detected by mammography. A normal mammogram should not delay biopsy of a clinically suspicious abnormality. [id number] Electronically Signed: Jorge Herrmann MD at 15:59 EDT , Service support ,
== END ==
PROVIDERS: PCP Family Medicine; Referring Provider Registered Nurse; Visit Provider Registered Nurse
DX: Z12.31 Encounter for screening mammogram for malignant neoplasm of breast (principal)
CPT/HCPCS: 77063; 77067

== ENCOUNTER 2020-10-02 15:30 | Outpatient (RCR) | payer OTHER, SELFPAY ==
[2020-08-28 07:43] VITALS: BMI 45.7
--- NOTE | 2020-09-06 09:35 | HP.PTEVAL_ITS ---
Patient's Visit Information SHAHZAD LAY is a 60 year old F referred to Physical Therapy by Dr. Ramon Zepeda DO with a diagnosis of Severe Supraspinatus muscle atrophy, partial RTC tear, degenerative labral. Date of Evaluation: 09/04/20 Physical Therapist: Antonio Taylor DPT - Visit Plan Frequency: 2-3x /Week Duration: 6 Weeks Plan: 1)Start with PROM of L shoulder 2) add in inferior and multidirectional joint mobs of G/H joint allowing for increased tolerance to active mobility. 3) progress AAROM of L shoulder including fransisco's, wand and walk away like movements. 4) progress to L shoulder isometrics. 5) progress HEP. May use US if needed to aid in pain reduction allowing for better tolerance with manual stretching and exercises. - Subjective Pt. is here today for her initial evaluation with diagnosis of Severe Supr aspinatus muscle atrophy, partial RTC tear, degenerative labral tear and biceps tendinopathy. Pt. reports having pain for ~7 months now. She has been having trouble lifting her L arm. Increases pain: lifting her arm, reaching, upper body dressing, household work. Decreases symptoms: rest, ice. PMH: multiple level spinal fusion earlier this year. Physician believes this might be contributing to muscle atrophy as well. 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 Pt. is having trouble sleeping on her L side, wakes her up at night as well. Pt. is a little worried about her recurrent numbness in B fingers and hands, had previously went away after her surgery. She did fall onto her L shoulder a few months back and again the numbness started coming back and made her L shoulder worse. Pt. is hopeful to reduce sympoms in order to get back to all recreational and work activities without issues. - Pain L shoulder Pain Intensity (Out of 10): 4 Pain Intensity Range: 2, 10 - Objective POSTURE: Pt. has general flexed posture, FH, with rounded shoulders. Pt. has increased thoracic kyphosis. PALPATION: Pt. has increased tenderness at supraspinatus muscle belly and anterior insertion, pain along biceps tendon and throughout scapular musculature. NEURO: Pt. has normal overall sensation in BUEs, but does report tingling in B hands. Pt. has normal DTR of bilateral triceps and biceps. ROM: R shoulder: AROM: flexion 150deg, abd 140deg, functional ER C4, functional IR L2. L shoulder AROM: flexion 90deg, abd 75deg, functional ER C2 aberrant motion, functional L PSIS painful. PROM: L shoulder- flexion 160deg, abd 145deg, ER at 90deg 50deg, IR at 90deg 20deg. MMT: R shoulder: 4+/5 throughout. L shoulder: flexion 4/5 increase NW, abd 4-/5 increase NW, ER 4-/5 increase NW, IR 4+/5 NE, ext 5/5 NE. B elbow 5/5 throughout. - Special Tests L Shoulder External Rotation Lag Test - RC Tear: Negative L Shoulder Empty Can - SS: Positive L Shoulder Belly Press - SupScap: Negative L Shoulder Neer - Impingement: Positive L Shoulder You Betito - Impingement: Positive L Shoulder Biceps Load Test - Labrum: Positive L Shoulder Yeargasons - SLAP: Positive L Shoulder Speeds Test - Labrum/Biceps: Positive - Balance/Special Test Scores Quick DASH Score: 81.8175 - Goals Goal 1:: LTG: Pt. to be I with HEP. Goal Time Frame: 2-4 Weeks Goal 2:: STG: Pt. to have increased PROM by 25% of L shoulder in all directions. Goal Time Frame: 2 Weeks Goal 3:: STG: Pt. to sleep with 0-3/10 pain in L shoulder allowing for increased quality of life. Goal Time Frame: 2 Weeks Goal 4:: LTG: Pt. to have increased AROM of L shoulder to 75% of full in all directions allowing for increased tolerance to all overhead activities. Goal Time Frame: 4-6 Weeks Goal 5:: LTG: Pt. to have increased L shoulder/UE strength increased to at least 4+/5 throughout allowing for increased ability to complete all work related activities. Goal Time Frame: 4-6 Weeks - Rehabilitation Potential Physical Therapy Diagnosis: Pt. has signs and symptoms consistent with Severe Supraspinatus muscle atrophy, partial RTC tear, degenerative labral tear and biceps tendinopathy. Pt. has marked LUE weakness, limited ROM and pain with all muscle activations. Pt would benefit from PT to initially increase her ROM, progress stability and wean back into work related activities as tolerated. Rehabilitation Potential: Good - Anticipated Interventions Patient/Client Instruction: Educate patient on: Condition, Plan of Care, Risk Factors, Benefits of Fitness Program For the Purpose of:: To improve decision making, To facilitate caregiver knowledge, To improve self management, To prevent re-injury, To improve ability to perform tasks related to life management Therapeutic Exercise to Include: Strength training, Power training, Body mechanics, Postural training, Flexibilty training, Passive ROM, Active ROM, Scapular Strength/Stabilization For the Purpose of:: To decrease pain, To decrease swelling/inflammation, To increase ROM, To improve nutrient delivery to tissue, To increase oxygenation perfusion, To improve muscle performance and motor function, To increase tolerance to activity/condition/position, To improve performance and independence with ADL's, To improve health of tissue, To decrease soft tissue restriction, To increase flexibility/ROM Manual Therapy Techniques to Include: Mobilization, Passive ROM, Soft tissue mobilization, Other For the Purpose of:: To decrease pain, To decrease swelling/inflammation, To increase ROM, To improve nutrient delivery to tissue Cryotherapy (ice pack, ice massage): Yes Thermo therapy (hot pack): Yes Ultrasound (thermal/non thermal): Yes For the Purpose of:: To decrease pain, To decrease swelling/inflammation, To increase ROM, To improve nutrient delivery to tissue, To increase oxygenation perfusion Thank you for the opportunity to evaluate your patient. For Medicare and Medicare HMO plans, please review the plan of care and approve it. It will need to be FAXED BACK to us at [phone] for Medicare purposes. For Medicare only, by signing this I certify the plan of care. Please let me know if there are questions or concerns regarding this plan of care. Physician Signature: Date:
--- NOTE | 2020-10-03 07:38 | HP.PTREVAL ---
Dr. Ramon Zepeda, DO, It has been my pleasure to treat SHAHZAD LAY over the last 7 visits for Severe Supraspinatus muscle atrophy, partial RTC tear, degenerative labral. Please see the progress note below for an update on the physical therapy plan of care! Subjective: Pt. reports numbness in B feet and hands. Pt. reports I feel like my ROM has improved, but my pain has not changed much. She was able worked for 3 days, but the pain in her L shoulder was too much. Objective/Function: ROM: L shoulder: flexion 150deg, abd 110deg, functional ER External auditory meatus, functional IR L5. Pt. has increased pain with all movements, but is overall improved ROM especially in flexion. MMT: flexion 4/5, abd 4-/5, ER 4/5, IR 4+/5, ext 4+/5. Pt. had increased in symptoms with all MMT this date. She has improved ROM, but still slightly limited. She does have marked weakness. I would like her to add in isometric strengthening and progress as tolerated. Plan Plan: Pt. to see physician next week. I will follow up with her later this week and see how she did with adding in strengthening today. Balance/Gait/Functional tests - Balance/Special Test Scores Quick DASH Score: 63.6350 Goals Goal 1:: LTG: Pt. to be I with HEP. Goal Time Frame: 2-4 Weeks Goal Progress: Progressing Goal 2:: STG: Pt. to have increased PROM by 25% of L shoulder in all directions. Goal Time Frame: 2 Weeks Goal Progress: Progressing Goal 3:: STG: Pt. to sleep with 0-3/10 pain in L shoulder allowing for increased quality of life. Goal Time Frame: 2 Weeks Goal Progress: Not Progressing Goal 4:: LTG: Pt. to have increased AROM of L shoulder to 75% of full in all directions allowing for increased tolerance to all overhead activities. Goal Time Frame: 4-6 Weeks Goal Progress: Progressing Goal 5:: LTG: Pt. to have increased L shoulder/UE strength increased to at least 4+/5 throughout allowing for increased ability to complete all work related activities. Goal Time Frame: 4-6 Weeks Goal Progress: Progressing Anticipated Interventions Patient/Client Instruction: Educate patient on: Condition, Plan of Care, Risk Factors, Benefits of Fitness Program For the Purpose of:: To improve decision making, To facilitate caregiver knowledge, To improve self management, To prevent re-injury, To improve ability to perform tasks related to life management Therapeutic Exercise to Include: Strength training, Power training, Body mechanics, Postural training, Flexibilty training, Passive ROM, Active ROM, Scapular Strength/Stabilization For the Purpose of:: To decrease pain, To decrease swelling/inflammation, To increase ROM, To improve nutrient delivery to tissue, To increase oxygenation perfusion, To improve muscle performance and motor function, To increase tolerance to activity/condition/position, To improve performance and independence with ADL's, To improve health of tissue, To decrease soft tissue restriction, To increase flexibility/ROM Manual Therapy Techniques to Include: Mobilization, Passive ROM, Soft tissue mobilization, Other For the Purpose of:: To decrease pain, To decrease swelling/inflammation, To increase ROM, To improve nutrient delivery to tissue Cryotherapy (ice pack, ice massage): Yes Thermo therapy (hot pack): Yes Ultrasound (thermal/non thermal): Yes For the Purpose of:: To decrease pain, To decrease swelling/inflammation, To increase ROM, To improve nutrient delivery to tissue, To increase oxygenation perfusion Please do not hesitate to contact me at [phone] by phone or if you have questions or concerns regarding this new plan of care! Sincerely, Antonio Taylor DPT
--- NOTE | 2020-11-19 17:10 | HP.PT.NRP ---
SHAHZAD LAY was seen in my office for initial evaluation on 09/04/20. The following Plan of Care was established for this patient: Initial Frequency: 2-3x /Week Initial Duration: 6 Weeks Patient/Client Instruction: Educate patient on: Condition, Plan of Care, Risk Factors, Benefits of Fitness Program For the Purpose of:: To improve decision making, To facilitate caregiver knowledge, To improve self management, To prevent re-injury, To improve ability to perform tasks related to life management Therapeutic Exercise to Include: Strength training, Power training, Body mechanics, Postural training, Flexibilty training, Passive ROM, Active ROM, Scapular Strength/Stabilization For the Purpose of:: To decrease pain, To decrease swelling/inflammation, To increase ROM, To improve nutrient delivery to tissue, To increase oxygenation perfusion, To improve muscle performance and motor function, To increase tolerance to activity/condition/position, To improve performance and independence with ADL's, To improve health of tissue, To decrease soft tissue restriction, To increase flexibility/ROM Manual Therapy Techniques to Include: Mobilization, Passive ROM, Soft tissue mobilization, Other For the Purpose of:: To decrease pain, To decrease swelling/inflammation, To increase ROM, To improve nutrient delivery to tissue Cryotherapy (ice pack, ice massage): Yes Thermo therapy (hot pack): Yes Ultrasound (thermal/non thermal): Yes For the Purpose of:: To decrease pain, To decrease swelling/inflammation, To increase ROM, To improve nutrient delivery to tissue, To increase oxygenation perfusion This patient was last seen in our office 05/22/20. Pertinent comments regarding their Physical therapy will appear below: This patient has not returned to Physical Therapy and is appropriate to return to MD for further follow-up as needed. At this point I will be discontinuing this patient from physical therapy. I would be happy to see this patient again in the future if found appropriate by the physician. Thank you! Natalie Caraballo, PT, Cert MDT Balance/Gait/Functional tests - Balance/Special Test Scores Quick DASH Score: [phone]
== END 2020-10-02 19:00 | disposition home or self-care (01) ==
LOC: PT 15:30
PROVIDERS: PCP Family Medicine; Referring Provider Orthopaedic Surgery; Visit Provider Orthopaedic Surgery
DX: M62.519 Muscle wasting and atrophy, not elsewhere classified, unspecified shoulder (principal); S46.019D Strain of muscle(s) and tendon(s) of the rotator cuff of unspecified shoulder, subsequent encounter; T14.8XXD Other injury of unspecified body region, subsequent encounter; X58.XXXD Exposure to other specified factors, subsequent encounter; M75.20 Bicipital tendinitis, unspecified shoulder
CPT/HCPCS: 97035; 97110; 97140; 97161; 97164

== ENCOUNTER → 2020-10-04 | Outpatient (CLI) | payer OTHER, SELFPAY | END | disposition home or self-care (01) | LOC: LABSPEC 16:37 | PROVIDERS: PCP Family Medicine; Referring Provider Family Medicine; Visit Provider Family Medicine | DX: N39.0 Urinary tract infection, site not specified (principal) | CPT/HCPCS: 87077; 87086; 87088; 87186 ==

== ENCOUNTER 2020-11-07 06:22 | Day surgery (SDC) | payer OTHER, SELFPAY ==
--- NOTE | 2020-11-01 13:36 | EKG12_ITS ---
Test Reason : PRE OP Blood Pressure : / mmHG Vent. Rate : 074 BPM Atrial Rate : 074 BPM P-R Int : 136 ms QRS Dur : 092 ms QT Int : 400 ms P-R-T Axes : 078 -07 032 degrees QTc Int : 444 ms Normal sinus rhythm Normal ECG Confirmed by ELENA BILLS, SHERRY ([id number]), television news video editor REGGIE BENNETT ([id number]) on 11/02/2020 1:49:34 PM Referred By: Ramon Zepeda Confirmed By:SHERRY PARKER MD
[2020-11-01 14:50] LABS: Hematocrit 43.3 % (37-47); Hemoglobin 13.4 g/dL (12.0-15.0); Mean Corp Hgb Conc 30.9 g/dL (32-36); Mean Corpuscular Hgb 29.4 pg (27.0-32.0); Mean Platelet Vol. 12.2 fl (6.2-12.0); Platelet Count 272 K/mm3 (150-450); RBC Distribution Width CV 12.5 % (11.6-14.6); RBC Distribution Width SD 43.7 fl (35.1-43.9); Red Blood Count 4.56 M/mm3 (4.2-5.4); White Blood Count 8.9 K/mm3 (4.4-11.0)
[2020-11-01 15:17] LABS: Anion Gap 3 (5-15); BUN 15 mg/dL (7-18); Calcium,Total 9.1 mg/dL (8.5-10.1); Chloride 104 mmol/L (98-107); Creatinine, Serum 0.71 mg/dL (0.55-1.02); EST Glomerular Filtration Rate 89 mL/min (>60); Est Glom Filt Rate - Afr Amer 108 mL/min (>60); Glucose 70 mg/dL (74-106); Potassium 3.5 mmol/L (3.5-5.1); Sodium Level 138 mmol/L (136-145)
[2020-11-07] VITALS (8 sets, daily range): BP systolic 138–156; BP diastolic 50–74; PULSE 67–74; RESP 16–18; TEMP 36.2–36.6; O2SAT 95–100; BMI 44.9
[2020-11-07] MEDS: Lactated Ringers 1,000 ML 100 ML IV ×2 (07:00→12:07)
--- NOTE | 2020-11-07 07:21 | HP.PCM_ITS ---
History and Physical Date of Admission: 11/07/20 Date of Service: 10/09/20 MR#:[id number]:[id number]: SHAHZAD LAY #:[id number] Provider:Dr. Ramon Zepeda, Age/Sex: 60/F Location:[facility]:Signed Intake Intake Visit Reasons: LEFT SHOULDER Allergies No Known Allergies Allergy (Verified 10/09/20 14:27) Medications losartan 50 mg-hydrochlorothiazide 12.5 mg tablet tab PO 12/07/19 [History Confirmed 10/09/20] nabumetone 500 mg tablet mg PO 12/07/19 [History Confirmed 10/09/20] cholecalciferol (vitamin D3) 50 mcg (2,000 unit) capsule 50 mcg PO DAILY 01/31/20 [History Confirmed 10/09/20] escitalopram oxalate 20 mg tablet ea PO 01/31/20 [History Confirmed 10/09/20] ferrous sulfate 325 mg (65 mg iron) tablet 325 mg PO DAILY 01/31/20 [History Confirmed 10/09/20] gabapentin 300 mg capsule mg PO 01/31/20 [History Confirmed 10/09/20] naltrexone 8 mg-bupropion 90 mg tablet,extended release 2 tab PO BID tab 01/31/20 [History Confirmed 10/09/20] cephalexin 500 mg capsule 500 mg PO Q6H #30 cap 03/07/20 [Rx Confirmed 10/09/20] cyclobenzaprine 10 mg tablet 10 mg PO TID #30 tab 06/14/20 [Rx Confirmed 10/09/20] diazepam 5 mg tablet 5 mg PO ONCE #1 tab 08/02/20 [Rx Confirmed 10/09/20] HPI LEFT SHOULDER Details: Parts of this documentation were recorded by a scribe, this documentation accurately reflects the service provided and the decisions made by me, Dr. Ramon Zepeda, 10/09/20 [id number]. SHAHZAD LAY is a 60 year old F here today for a follow up on her left shoulder. Patient states her rang of motion is better but the PT did not help with her pain. Patient is still having the same pain as before in her shoulder and sometimes down to her elbow. Patient states she does have numbness and tingling in both hands and arms. Patient states her left shoulder feels swollen. Patient states she tried to go back to work with the restrictions given but she still had pain so she decided to quite her job. Ortho Exam Left Shoulder Skin/Wound: No ecchymosis, No erythema and No swelling Testing: Yes Hawkin's, Yes TTP Biceps and Yes TTP AC Joint SHOULDER: 155 active elevaiton full passive Skin/Wound: No ecchymosis, No erythema and No swelling Testing: Yes Hawkin's, Yes TTP Biceps, No Drop Arm, Yes Yes AROM-External Rotation at 90 0-60, Yes PROM-Forward Elevation 0-180 (165 degree) and Yes empty can Internal Rotation: Hip SHOULDER: TTP over lateral deltoid. Abduction 85 degrees. External rotation 35 degrees. Weakness throughout the rotator cuff 3+4/5. Neurovascularly intact. Weakness with belly press and empty can. Negative drop arm test. Radial pulse 2/4. Supplemental Info 08/23/2020 MRI left shoulder: Low-grade partial-thickness supraspinatus infraspinatus subscapularis tendon tearing rotator cuff tendinosis with advanced supraspinatus muscle atrophy, moderate intracapsular biceps tendinosis with medial subluxation, type II SLAP tear with fraying of the biceps labral anchor, AC joint arthrosis with anterior impingement Coding Level of Care Code Off vis,est,level 3 Diagnoses Tendinopathy of left biceps tendon M67.922 Degenerative tear of glenoid labrum of left shoulder M24.112 BMI 40.0-44.9, adult Z68.41 Impingement syndrome, shoulder, left M75.42 Arthrosis of left acromioclavicular joint M19.012 Assessment and Plan Assessment and Plan (1) Tendinopathy of left biceps tendon: Status: Acute (2) Degenerative tear of glenoid labrum of left shoulder: Status: Acute (3) BMI 40.0-44.9, adult: Status: Acute (4) Impingement syndrome, shoulder, left: Status: Acute (5) Arthrosis of left acromioclavicular joint: Status: Acute Plan - Dr. Ramon Zepeda, DO: Patient continues to have left shoulder pain she has improved range of motion with physical therapy but continues to show signs of impingement biceps tendinitis and AC joint arthritis. She wishes to proceed with surgical intervention of open distal clavicle excision subacromial decompression arthroscopically biceps tenotomy labral debridement surgery as indicated. She understands risk benefits alternatives of surgery including risk of bleeding in fection nerve artery tissue damage need for further surgery continued pain overlapping symptoms from her cervical spine. As she has failed conservative treatment she wishes to proceed with this. 10/09/20 1515<Electronically signed by Ramon Zepeda DO>Date Ramon Zepeda DO Cosigner Signature:Date (if applicable) CC: Dr. Milton Aparicio MD ~I have re-examined the patient. There are no clinical changes since date of exam
[2020-11-07] MEDS: Cefazolin 2 GM in 0.9% Normal Saline 100 ML IV (08:17)
[2020-11-07] MEDS: Epinephrine (1 mg/ml) 1 MG/ML VIAL (08:50)
--- NOTE | 2020-11-07 09:43 | PCM.OPRPT ---
Report of Operation Date of Procedure: 11/07/20 Description of Surgical Findings:: Preoperative diagnosis: Left shoulder impingement, biceps tendonopathy, partial undersurface supraspinatus tear AC joint arthrosis, degenerative labral tearing Postoperative diagnosis: Left shoulder impingement , biceps tendinopathy, degenerative labral tearing, partial tearing subscapularis and supraspinatus. AC joint arthrosis Procedure: Left shoulder arthroscopic labral debridement biceps tenotomy rotator cuff debridement subacromial decompression open distal clavicle excision Anesthesia: General ; EBL: 10 cc Complications: none Indication for procedure: 60-year-old morbidly obese female with comorbid shoulder and cervical problems. History of cervical spinal fusion and continues to have radicular symptoms in addition to left shoulder pain. She has had physical therapy and failed conservative treatment did have an MRI evidence of partial rotator cuff tear supraspinatus AC joint arthritis impingement labral tearing biceps tendinopathy. Patient did have a clinical symptoms consistent with impingement as well. She understood that overlap of symptoms from cervical spine contribute to her pain and radicular symptoms and shoulder arthroscopy would not help with any radicular symptoms to the hand. She understood this patient did wish to proceed with an arthroscopic surgery as indicated. risks benefits and alternatives of the procedure were reviewed including risk of bleeding infection nerve artery tissue damage need for further surgery continued pain postoperative stiffness and need for postoperative physical therapy and continued pain. Procedure : Patient was met in the preoperative holding area the operative extremity was identified by both the patient and the physician and was marked. Patient was met by anesthesia and brought back to the operating room on a wheeled cart. She was transferred to the operating table in the supine position. Anesthesia was started. Patient was then positioned in the beachchair configuration. Bony prominences were well-padded. The patient was prepped and draped in the usual sterile fashion. A timeout was called to ensure the proper patient procedure and extremity were being contemplated. Anatomic landmarks were palpated and marked with a marking pen. A 0.25% Marcaine with epinephrine was injected into the planned portal sites. An 11 blade scalpel was used to make a stab incision in the posterior lateral portal. Arthroscope was inserted into the glenohumeral space with ease. Inflow and outflow tubes were attached and arthroscopic visualization began. An anterior portal was established with an 18-gauge spinal needle. Immediately there was noted to be degenerative labral tearing superior and posterior which was debrided with a shaver there was noted to be tearing of the biceps tendon as well as partial thickness undersurface tear of the posterior supraspinatus shaver was used to debride the labral tissue the rotator cuff was evaluated from the undersurface there was small articular sided tearing of the posterior edge of the supraspinatus which was debrided as well as the superior border of the subscapularis which was debrided however no full-thickness tear was noted of either and the cuff was evaluated with probe it was not felt that 50% of the cuff was involved. The arthroscope was then repositioned into the subacromial space there was with use of a shaver and [employer] wand we made our way until the distal clavicle was reached with the use of a bur acromioplasty was performed the bursal side of the rotator cuff was thoroughly investigated and did not have any tearing noted the wound was thoroughly irrigated through the scope followed by a subacromial injection with 40 mg Depo-Medrol 4 mg of morphine and 8 cc of 0.5% Marcaine plain. Suture portals were closed with 3-0 nylon arthroscopic stitches We then proceeded to the open distal clavicle excision which was marked with spinal needles while we were subacromial with the scope we then proceeded with a 15 blade to make a linear incision over the distal clavicle full-thickness flaps were elevated anterior and posterior to the distal clavicle ~bone was reached with the use of a TPS reciprocating saw distal clavicle was excised the wound was thoroughly irrigated the joint capsule was closed with 0 Vicryl [id number] we then proceeded with subcutaneous fat closure followed by 3-0 Vicryl subcutaneous stitches and nylon in the skin followed by Xeroform 4 x 4 ABD and a Ioban dressing. A regular sling was placed. Anesthesia was reversed and patient tolerated the procedure well was and was transferred to the PACU all counts were correct patient will follow-up in the office in 2 weeks patient may begin active range of motion immediately
--- NOTE | 2020-11-07 09:51 | PCM.DC ---
Discharge Instructions Activity Keep extremity elevated above heart level: Operative Extremity Dressing / Incision Additional Dressing/Incision Instructions:: Leave the dressing on and intact for 48 hours. Then may remove and shower with warm water and antibacterial soap. But do not submerge in tub for 3 weeks. ice shoulder 15 min on and 15 mins off next 72 hrs. May remove sling for elbow range of motion and pendulum exercises may preform active range of motion of shoulder when pain allows. discontinue sling over the course to the week as pain allow. DC completely by 1 week. Do not lift push or pull greater then 5 lbs with operative extremity. Encourage finger and wrist range of motion. If any concerns call Dr. Zepeda's office. Follow Up Care Please Follow Up With: Ramon Zepeda DO When: 2 weeks Test Results: Test results from this visit will be discussed in further detail at your follow-up appointment, if applicable. Discharge Plan Admission Attending Provider: Ramon Zepeda Primary Care Provider: Milton Aparicio Discharge Orders/Prescriptions Prescriptions: New oxycodone 5 mg tablet 5 mg PO Q4H PRN (Reason: pain) 7 Days Qty: 50 RF: 0 No Action nabumetone 500 mg tablet 1,000 mg PO BID RF: 0 losartan-hydrochlorothiazide 50-12.5 mg tablet 1 tab PO BID RF: 0 gabapentin 300 mg capsule 300 mg PO TID RF: 0 escitalopram oxalate 20 mg tablet 20 mg PO DAILY RF: 0 Contrave 8-90 mg tablet extended release 2 tab PO BID RF: 0 cholecalciferol (vitamin D3) 50 mcg (2,000 unit) capsule 50 mcg PO DAILY RF: 0 ferrous sulfate [Feosol] 325 mg (65 mg iron) tablet 325 mg PO DAILY RF: 0 biotin 10,000 mcg Capsule 10,000 mcg PO DAILY RF: 0 lidocaine 5 % Adhesive Patch,Medicated 1 patch TOPICAL DAILY PRN (Reason: Pain) RF: 0 albuterol sulfate 90 mcg/actuation Hfa Aerosol Inhaler 1 inh INHALATION Q6H PRN (Reason: sob) RF: 0 diclofenac sodium [Voltaren Arthritis Pain] 1 % Gel 1 ea TOPICAL PRN PRN (Reason: Pain) RF: 0 vitamin O40-apczm acid 1,000-400 mcg Tablet, Sublingual 1 tab SUBLINGUAL DAILY RF: 0 lorazepam 0.5 mg Tablet 0.5 mg PO DAILY PRN (Reason: Anxiety) RF: 0 Referrals / Follow Up: Milton Aparicio MD [Primary Care Provider] - Disposition Disposition (needs filled in before D/C Order can be placed): Home, Self Care
[2020-11-07] MEDS: Cefazolin 1 GM/50 ML BAG IV (12:55)
== END 2020-11-07 14:09 | disposition home or self-care (01) ==
LOC: SDC 06:24 → AC 06:24
PROVIDERS: Anesthesiology; PCP Family Medicine; Referring Provider Orthopaedic Surgery; Visit Provider Orthopaedic Surgery
PROC: (CPT 29827; principal; 2020-11-07 07:45)
DX: M75.112 Incomplete rotator cuff tear or rupture of left shoulder, not specified as traumatic (principal); M75.42 Impingement syndrome of left shoulder; M19.012 Primary osteoarthritis, left shoulder; M75.22 Bicipital tendinitis, left shoulder; M67.922 Unspecified disorder of synovium and tendon, left upper arm; M24.112 Other articular cartilage disorders, left shoulder; E66.01 Morbid (severe) obesity due to excess calories; Z68.41 Body mass index [BMI] 40.0-44.9, adult; I10 Essential (primary) hypertension; F41.9 Anxiety disorder, unspecified; F32.9 Major depressive disorder, single episode, unspecified; J45.909 Unspecified asthma, uncomplicated; Z79.899 Other long term (current) drug therapy
CPT/HCPCS: 01630; 29824; 29826; 29828; 36415; 80048; 85027; 93005; J7120; J2405

== ENCOUNTER 2021-03-27 12:59 | Outpatient (RCR) | payer OTHER, SELFPAY | END 2021-04-09 23:59 | LOC: NS 12:59 | PROVIDERS: PCP Family Medicine; Referring Provider Physician Assistant; Visit Provider Physician Assistant | DX: Z71.3 Dietary counseling and surveillance (principal); E66.01 Morbid (severe) obesity due to excess calories; Z68.41 Body mass index [BMI] 40.0-44.9, adult | CPT/HCPCS: 97802 ==

== ENCOUNTER 2021-03-30 14:37 | Outpatient (CLI) | payer OTHER, SELFPAY ==
[2021-03-30 17:44] LABS: Absolute Lymphocyte Count 1.36 X10^3/uL (0.83-4.51); Absolute Neutrophil Count 3.8 X10^3/uL (2.0-7.7); Basophil# 0.07 X10^3/uL; Basophil% 1.2 % (0-1); Eosinophil# 0.21 X10^3/uL; Eosinophils% 3.5 % (0-5); Hematocrit 38.6 % (37-47); Hemoglobin 12.4 g/dL (12.0-15.0); Lymphocyte # 1.36 X10^3/ul (0.83-4.51); Mean Corp Hgb Conc 32.1 g/dL (32-36); Mean Corpuscular Hgb 30.8 pg (27.0-32.0); Mean Corpuscular Volume 95.8 fL (81-99); Mean Platelet Vol. 12.7 fl (6.2-12.0); Monocyte# 0.44 X10^3/uL; Monocyte% 7.4 % (0-10); NRBC Flagged by Analyzer 0 % (0-5); Neutrophil # 3.82 X10^3/uL (2.7-7.7); Neutrophil % 64.6 % (47-70); Platelet Count 219 K/mm3 (150-450); RBC Distribution Width CV 12.1 % (11.6-14.6); RBC Distribution Width SD 42.6 fl (35.1-43.9); Red Blood Count 4.03 M/mm3 (4.2-5.4); White Blood Count 5.9 K/mm3 (4.4-11.0)
[2021-03-30 17:56] LABS: Vitamin B12 298 pg/mL (211-911); Vitamin D,25 Hydroxy 54.9 ng/mL
[2021-03-30 18:03] LABS: ALB/GLOB Ratio 0.9 RATIO (0.9-2.4); AST(SGOT) 22 U/L (15-37); Alanine Aminotransfer ALT/SGPT 29 U/L (13-56); Albumin, Serum 3.3 g/dL (3.2-5.0); Alkaline Phosphatase 130 U/L (45-117); Anion Gap 5 (5-15); BUN 15 mg/dL (7-18); BUN/Creat Ratio 25.1 RATIO (10-20); Calcium,Total 8.9 mg/dL (8.5-10.1); Chloride 103 mmol/L (98-107); Cholesterol 143 mg/dL (200); EST Glomerular Filtration Rate 109 mL/min (>60); Est Glom Filt Rate - Afr Amer 132 mL/min (>60); Globulin 3.8 g/dL (2.2-4.2); Glucose 78 mg/dL (74-106); High Density Lipoprotein 48 mg/dL; Protein, Total 7.1 g/dL (6.4-8.2); Sodium Level 138 mmol/L (136-145); Triglycerides 92 mg/dL; Very Low Density Lipoprotein 18 mg/dL (5-40)
== END 2021-03-30 23:59 | disposition home or self-care (01) ==
LOC: MFPLAB 14:42
PROVIDERS: PCP Family Medicine; Referring Provider Family Medicine; Visit Provider Family Medicine
DX: Z00.00 Encounter for general adult medical examination without abnormal findings (principal)
CPT/HCPCS: 36415; 80053; 80061; 82306; 82607; 84443; 85025

== ENCOUNTER 2021-04-25 10:30 | Outpatient (RCR) | payer OTHER, SELFPAY | END 2021-05-10 23:59 | LOC: NS 10:30 | PROVIDERS: PCP Family Medicine; Referring Provider Physician Assistant; Visit Provider Physician Assistant | DX: Z71.3 Dietary counseling and surveillance (principal); E66.01 Morbid (severe) obesity due to excess calories; Z68.41 Body mass index [BMI] 40.0-44.9, adult | CPT/HCPCS: 97803 ==

== ENCOUNTER 2021-05-16 11:24 | Outpatient (RCR) | payer OTHER, SELFPAY | END 2021-06-09 23:59 | LOC: NS 11:24 | PROVIDERS: PCP Family Medicine; Referring Provider Physician Assistant; Visit Provider Physician Assistant | DX: Z71.3 Dietary counseling and surveillance (principal); E66.01 Morbid (severe) obesity due to excess calories; Z68.41 Body mass index [BMI] 40.0-44.9, adult | CPT/HCPCS: 97803 ==

== ENCOUNTER 2021-06-14 14:25 | Outpatient (RCR) | payer OTHER, SELFPAY | END 2021-07-10 23:59 | LOC: NS 14:25 | PROVIDERS: PCP Family Medicine; Referring Provider Physician Assistant; Visit Provider Physician Assistant | DX: Z71.3 Dietary counseling and surveillance (principal); E66.01 Morbid (severe) obesity due to excess calories; Z68.41 Body mass index [BMI] 40.0-44.9, adult | CPT/HCPCS: 97803 ==

== ENCOUNTER 2021-08-01 11:28 | Outpatient (RCR) | payer OTHER, SELFPAY | END 2021-08-09 23:59 | LOC: NS 11:28 | PROVIDERS: PCP Family Medicine; Referring Provider Physician Assistant; Visit Provider Physician Assistant | DX: Z71.3 Dietary counseling and surveillance (principal); E66.01 Morbid (severe) obesity due to excess calories; Z68.41 Body mass index [BMI] 40.0-44.9, adult | CPT/HCPCS: 97803 ==

== ENCOUNTER → 2021-10-02 | Outpatient (CLI) | payer OTHER, SELFPAY ==
[2021-10-02 15:53] LABS: Anion Gap 4 (5-15); BUN 17 mg/dL (7-18); BUN/Creat Ratio 24.1 RATIO (10-20); Calcium,Total 8.7 mg/dL (8.5-10.1); Chloride 105 mmol/L (98-107); Creatinine, Serum 0.71 mg/dL (0.55-1.02); EST Glomerular Filtration Rate 90 mL/min (>60); Est Glom Filt Rate - Afr Amer 109 mL/min (>60); Glucose 69 mg/dL (74-106); Potassium 4.2 mmol/L (3.5-5.1); Sodium Level 139 mmol/L (136-145); Vitamin B12 513 pg/mL (211-911)
== END | disposition home or self-care (01) ==
LOC: MFPLAB 12:15
PROVIDERS: PCP Family Medicine; Visit Provider Family Medicine
DX: I10 Essential (primary) hypertension (principal); E53.8 Deficiency of other specified B group vitamins
CPT/HCPCS: 36415; 80048; 82607

== ENCOUNTER → 2022-04-12 | Outpatient (CLI) | payer OTHER, SELFPAY ==
--- NOTE | 2022-04-12 14:21 | BI_ITS ---
MAMMOGRAPHY - BILATERAL SCREENING REASON FOR EXAM: Female, 62 years old. Routine annual screening examination. PERTINENT HISTORY: Non-contributory. Remote left stereotactic breast biopsy. TECHNIQUE: Digital bilateral breast sandra (3D mammographic acquisition) in the CC and MLO projections. 2-D mediolateral oblique (MLO) and craniocaudad (CC) views of both breasts were obtained. CAD: Full Field Digital Mammography with Computer Added Detection was performed. COMPARISON: Comparison is made with prior examination dated September 19, 2020 and November 14, 2017. FINDINGS: Breast Composition: The breasts are almost entirely fatty. There are no dominant masses or suspicious calcifications. A tissue clip marker is once again seen within a 7.9 mm well-defined nodule in the central upper lateral aspect of the left breast. Prominent venous markings. There has been no change. No other significant abnormalities are identified. There has been no significant change since the prior study. BI/SCRN MAMM (CAD)W/SANDRA BILAT IMPRESSION: Stable bilateral screening mammogram. Yearly follow-up mammogram recommended. (A) ASSESSMENT CATEGORY: BIRADS Category 2: Benign. A letter regarding these results will be sent to the patient by the facility within 30 days. Approximately 10% of breast cancers are not detected by mammography. A normal mammogram should not delay biopsy of a clinically suspicious abnormality. [id number] Electronically Signed: Jorge Herrmann MD at 15:14 EST ,
== END | disposition home or self-care (01) ==
LOC: OPBI 14:21
PROVIDERS: PCP Family Medicine; Visit Provider Family Medicine
DX: Z00.00 Encounter for general adult medical examination without abnormal findings (principal); Z12.31 Encounter for screening mammogram for malignant neoplasm of breast
CPT/HCPCS: 77063; 77067

== ENCOUNTER → 2022-07-04 | Outpatient (CLI) | payer OTHER, SELFPAY ==
[2022-07-04 10:43] LABS: Vitamin B12 457 pg/mL (211-911); Vitamin D,25 Hydroxy 51.6 ng/mL
[2022-07-04 10:50] LABS: ALB/GLOB Ratio 0.9 RATIO (0.9-2.4); AST(SGOT) 17 U/L (15-37); Alanine Aminotransfer ALT/SGPT 20 U/L (13-56); Albumin, Serum 3.1 g/dL (3.2-5.0); Alkaline Phosphatase 121 U/L (45-117); Anion Gap 5 (5-15); BUN 15 mg/dL (7-18); BUN/Creat Ratio 19.6 RATIO (10-20); Calcium,Total 8.8 mg/dL (8.5-10.1); Chloride 105 mmol/L (98-107); Cholesterol 139 mg/dL (200); Creatinine, Serum 0.77 mg/dL (0.55-1.02); EST Glomerular Filtration Rate 81 mL/min (>60); Est Glom Filt Rate - Afr Amer 98 mL/min (>60); Globulin 3.5 g/dL (2.2-4.2); Glucose 88 mg/dL (74-106); High Density Lipoprotein 42 mg/dL; Potassium 3.4 mmol/L (3.5-5.1); Protein, Total 6.6 g/dL (6.4-8.2); Sodium Level 141 mmol/L (136-145); Thyroid Stim Hormone (TSH) 4.03 uIU/mL (0.358-3.74); Triglycerides 104 mg/dL; Very Low Density Lipoprotein 21 mg/dL (5-40)
== END | disposition home or self-care (01) ==
LOC: MFPLAB 09:18
PROVIDERS: PCP Family Medicine; Visit Provider Family Medicine
DX: I10 Essential (primary) hypertension (principal); E55.9 Vitamin D deficiency, unspecified; E53.8 Deficiency of other specified B group vitamins
CPT/HCPCS: 36415; 80053; 80061; 82306; 82607; 84443

== ENCOUNTER → 2022-08-14 | Outpatient (CLI) | payer OTHER, SELFPAY ==
[2022-08-14 18:14] LABS: Free T3 2.3 pg/mL (2.18-3.98); T4 Free Direct 1.29 ng/dL (0.76-1.46); Thyroid Stim Hormone (TSH) 2.35 uIU/mL (0.358-3.74)
[2022-08-16 04:07] LABS: Thyroid Peroxidase AB 21 IU/mL (0-34)
== END | disposition home or self-care (01) ==
LOC: MFPLAB 15:29
PROVIDERS: PCP Family Medicine; Visit Provider Family Medicine
DX: R79.89 Other specified abnormal findings of blood chemistry (principal)
CPT/HCPCS: 36415; 84439; 84443; 84481; 86376

== ENCOUNTER → 2022-12-11 | Outpatient (CLI) | payer OTHER, SELFPAY ==
--- NOTE | 2022-12-11 13:08 | RAD_ITS ---
STUDY: X-RAY - CERVICAL SPINE REASON FOR EXAM: Female, 62 years old. DISC DEGENERATION TECHNIQUE: 6 view(s) of the cervical spine were obtained. COMPARISON: June 06, 2022 FINDINGS: Postsurgical changes status post anterior fusion as well as disc spacer placement at C3-4 and C4-5. Postsurgical changes are also noted status post bilateral laminectomy and posterior fusion at C4-T1. No acute fracture or subluxation. No lytic destructive changes are seen. No significant change since prior study RAD/Cerv Spine 4 or 5 Views IMPRESSION: Status post multilevel anterior and posterior fusion. No acute fracture or other significant abnormality not significantly changed since prior study Electronically Signed: Harley Vásquez MD at 16:10 EDT ,
== END | disposition home or self-care (01) ==
LOC: MTRAD 13:05
PROVIDERS: PCP Family Medicine; Referring Provider Family Medicine; Visit Provider Family Medicine
DX: M50.30 Other cervical disc degeneration, unspecified cervical region (principal)
CPT/HCPCS: 72050

== ENCOUNTER → 2023-01-09 | Outpatient (CLI) | payer OTHER, SELFPAY ==
--- NOTE | 2023-01-09 18:01 | MRI_ITS ---
STUDY: MRI CERVICAL SPINE WITHOUT CONTRAST REASON FOR EXAM: Female, 62 years old. Pain TECHNIQUE: Standardized fat and water weighted pulse sequences were obtained in the sagittal and axial planes. COMPARISON: X-ray December 11, 2022. MRI June 15, 2020 FINDINGS: The generalized signal intensity of the osseous structures is intact. There is no acute fracture. There is susceptibility artifact associated with postoperative change. There is anterior cervical fusion with fixation plate and screws extending from C3 through C5. There is posterior fusion with pedicle screws at C4, C5, C6, and T1. Normal foramen magnum and brainstem-cervical cord junction. Normal craniovertebral junction. Normal anterior atlantoaxial articulation. Normal odontoid process. Normal cervical lordosis. Normal vertebral bodies and posterior osseous elements. C2-3: Normal endplates. Normal disc height, signal and morphology. There is facet spurring. No canal stenosis. Mild right foraminal narrowing. C3-4: Anterior fusion with laminectomy. Normal central canal and intervertebral neural foramina. C4-5: Anterior and posterior fusion with laminectomy. Normal central canal and intervertebral neural foramina. C5-6: Disc space narrowing. Posterior fusion with laminectomy. Mild spurring. No canal stenosis. Mild right foraminal narrowing. C6-7: Posterior fusion with laminectomy. Normal central canal and intervertebral neural foramina. C7-T1: Posterior fusion and laminectomy. Normal central canal and intervertebral neural foramina. Normal cervical cord. There is postoperative change in the posterior soft tissues. MRI/Spine Cervical (Routine) IMPRESSION: Degenerative and postoperative change. Electronically Signed: Eric Scherer MD at 20:29 EST ,
== END | disposition home or self-care (01) ==
LOC: MRI 17:57
PROVIDERS: PCP Family Medicine; Visit Provider Orthopaedic Surgery Orthopaedic Surgery of the Spine
DX: G95.9 Disease of spinal cord, unspecified (principal); Z98.1 Arthrodesis status
CPT/HCPCS: 72141

== ENCOUNTER 2023-01-16 11:42 | Outpatient (RCR) | payer OTHER, SELFPAY ==
--- NOTE | 2023-01-16 12:54 | HP.PTEVAL ---
Patient's Visit Information Visit Information Visit Information: SHAHZAD LAY is a 62 year old F referred to Physical Therapy by Dr. Milton Aparicio MD with a diagnosis of DDD cervical. Date of Evaluation: 01/16/23 Physical Therapist: EVANGELINA Davis Visit Plan Plan: Hold chart for right now until after CATSCAN and EMG. Pt wants to wait until after tests and Dr Guevara office agrees. Reassess if Dr wants PT and set goals and treatment plan. Subjective Subjective: Goes by Shannon. Her R arm is Numb and tingling and very painful at times all the day the arm. She has weakness in her R arm. She saw Dr Vivar and had MRI and is showed (she had surgery 3 years ago with plates etc). The very bottom one may not be completely healed and up at the top there might be an impingement going on. He has ordered a CATSCAN and EMG but it is not scheduled yet. Dr Guevara said PT would not hurt. She can not turn her head as far to the right as she can to the left and that started after surgery. She is using a rollator cause using a cane in her R arm hurts. She sleeps in the reclining chair since her L shoulder surgery and she has a hyper sensitive nerve since that surgery. Pt is struggling with pushing pump on hairspray bottle or opening pop bottles. Pt is dropping things in her R hand. Her middle finger is numb all the time and started in the past month and half. The other finger numbness comes and goes but the middle finger is constant. She feels that her R arm is swollen and feels swollen. Pain c-spine pain: Pain Intensity (Out of 10): 0 R arm pain: Pain Intensity (Out of 10): 6 Objective Objective: Gait: walking with a rolling walker due to R hand bothering her with a cane in her R arm. 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 For Medicare and Medicare HMO plans, please review the plan of care and approve it. It will need to be FAXED BACK to us at [phone] for Medicare purposes. For Medicare only, by signing this I certify the plan of care. Please let me know if there are questions or concerns regarding this plan of care. Physician Signature: Date:
--- NOTE | 2023-04-07 15:34 | HP.PT.NRP ---
Patient Information Patient Information: SHAHZAD LAY was seen in my office for initial evaluation on 01/16/23. The following Plan of Care was established for this patient: Last Seen Last Seen: This patient was last seen in our office 01/16/23. Pertinent comments regarding their Physical therapy will appear below: DC PT At this point I will be discontinuing this patient from physical therapy. I would be happy to see this patient again in the future if found appropriate by the physician. Thank you! Greer Mehta, EVANGELINA Balance/Gait/Functional tests Balance/Special Test Scores Oswestry Neck Score: 14
== END 2023-01-16 19:00 | disposition home or self-care (01) ==
LOC: PT 11:42
PROVIDERS: PCP Family Medicine; Referring Provider Family Medicine; Visit Provider Family Medicine
DX: M50.30 Other cervical disc degeneration, unspecified cervical region (principal)
CPT/HCPCS: 97161

== ENCOUNTER → 2023-01-27 | Outpatient (CLI) | payer OTHER, SELFPAY ==
--- NOTE | 2023-01-27 08:00 | CT_ITS ---
STUDY: CT CERVICAL SPINE WITHOUT CONTRAST REASON FOR EXAM: Female, 62 years old. Bilateral arm numbness. Prior cervical fusion. RADIATION DOSAGE (If Supplied By Facility): CTDIvol = ( 39.24 ) mGy, DLP = ( 786.03 ) mGycm TECHNIQUE: High resolution transaxial imaging was performed without contrast material. Sagittal and coronal images were reconstructed. Individualized dose optimization techniques were used for this CT. COMPARISON: None FINDINGS: Normal craniovertebral junction. There are degenerative changes of the anterior atlantoaxial articulation. Normal odontoid process. Normal cervical lordosis. The patient is status post anterior fusion with screw and plate fixation device and prosthetic disc at the C3-C4 and C4-C5 levels. The patient also status post laminectomy and posterior fusion at the C5-T1 levels. C2-3: Normal endplates. Normal disc height and morphology. Normal central canal and intervertebral neuroforamina. C3-4: Anterior fusion and posterior laminectomy and posterior fusion. No evidence of spinal stenosis. C4-5: Anterior and posterior fusion with laminectomy. No evidence of a neuroforaminal or central canal stenosis. C5-6: Posterior fusion and laminectomy. Mild degree of spondylosis. Mild right foraminal stenosis. C6-7: Posterior fusion with laminectomy. No significant stenosis seen. C7-T1: Posterior fusion and laminectomy. No significant stenosis is seen. Normal visualized soft tissue structures. CT/Spine Cervical without Contras IMPRESSION: Multilevel degenerative changes, as described above. Postoperative changes as described. Electronically Signed: Jorge Herrmann MD at 12:51 EST ,
== END | disposition home or self-care (01) ==
LOC: CT 07:59
PROVIDERS: PCP Family Medicine; Referring Provider Orthopaedic Surgery Orthopaedic Surgery of the Spine; Visit Provider Orthopaedic Surgery Orthopaedic Surgery of the Spine
DX: Z98.1 Arthrodesis status (principal)
CPT/HCPCS: 72125

== ENCOUNTER → 2023-01-29 | Outpatient (CLI) | payer OTHER, SELFPAY ==
--- NOTE | 2023-01-29 13:36 | NEURO ---
NCS and/or EMG Patient Report Ordering Doctor: Carson Guevara DATE OF SERVICE: 01/29/23 Alysia presents for electrodiagnostic testing of the right upper limb. She reports numbness and tingling in the right hand. Electrodiagnostic findings: Right median motor nerve demonstrates prolonged distal latency with normal amplitude and reduced conduction velocity. Normal right ulnar motor response. Prolonged right median sensory latency at the wrist. Normal median and ulnar F-waves. Needle EMG testing was performed in the right upper limb. All muscles tested showed no evidence of denervation with normal motor unit action potentials. Electrodiagnostic impression: This is an abnormal study. 1. Electrodiagnostic findings demonstrate right-sided median mononeuropathy. This is consistent with a moderate right carpal tunnel syndrome Multi Select Codes Neurology Neurology Interp Codes: 68384-96 Musc test done w/n test comp (interp) and 34406-86 Nrv cndj test 7-8 studies (interp)
== END | disposition home or self-care (01) ==
LOC: PSN 09:51
PROVIDERS: PCP Family Medicine; Referring Provider Orthopaedic Surgery Orthopaedic Surgery of the Spine; Visit Provider Orthopaedic Surgery Orthopaedic Surgery of the Spine
DX: R20.0 Anesthesia of skin (principal)
CPT/HCPCS: 95886; 95910

== ENCOUNTER 2023-02-11 09:04 | Day surgery (SDC) | payer OTHER, SELFPAY ==
[2023-02-11] VITALS (7 sets, daily range): BP systolic 100–130; BP diastolic 56–80; PULSE 66–88; RESP 16–18; TEMP 36.1–36.6; O2SAT 92–95; BMI 48.4
[2023-02-11] MEDS: Lactated Ringers 1,000 ML 15 ML IV (09:47)
--- NOTE | 2023-02-11 09:56 | PCM.HP.BLA ---
History and Physical Intake Vital Signs 01/09/2313:57 Height 5 ft 2 in Intake Visit Reasons: CERVICAL SPINE Chief Complaint: Cervical spine Is patient in pain?: Yes Pain scale (1-10): 2 Allergies No Known Allergies Allergy (Verified 02/06/23 09:31) Medications losartan 50 mg-hydrochlorothiazide 12.5 mg tablet 1 tab PO BID 12/07/19 [History Confirmed 02/06/23] nabumetone 500 mg tablet 1,000 mg PO BID 12/07/19 [History Confirmed 02/06/23] cholecalciferol (vitamin D3) 50 mcg (2,000 unit) capsule 50 mcg PO DAILY 01/31/20 [History Confirmed 02/06/23] escitalopram oxalate 20 mg tablet 20 mg PO DAILY 01/31/20 [History Confirmed 02/06/23] ferrous sulfate 325 mg (65 mg iron) tablet (Feosol) 325 mg PO DAILY 01/31/20 [History Confirmed 02/06/23] gabapentin 300 mg capsule 300 mg PO TID 01/31/20 [History Confirmed 02/06/23] albuterol sulfate 90 mcg/actuation aerosol inhaler 1 inh inhalation Q6H PRN sob 10/31/20 [History Confirmed 02/06/23] biotin 10,000 mcg capsule 10,000 mcg PO DAILY 10/31/20 [History Confirmed 02/06/23] diclofenac sodium 1 % topical gel (Voltaren Arthritis Pain) 1 ea topical PRN PRN Pain 10/31/20 [History Confirmed 02/06/23] lidocaine 5 % topical patch 1 patch topical DAILY PRN Pain 10/31/20 [History Confirmed 02/06/23] vitamin B12 1,000 mcg-folic acid 400 mcg sublingual tablet 1 tab sublingual DAILY 10/31/20 [History Confirmed 02/06/23] PFSH Medical History Anxiety Arthritis Asthma CPAP (continuous positive airway pressure) dependence Depression History of echocardiogram History of pain when walking History of stress test Hypertension Non-smoker Walker as ambulation aid Wears glasses Surgical History History of History of esophagogastroduodenoscopy (EGD) History of partial hysterectomy Hx of colonoscopy Hx of fusion of cervical spine Hx of gastric bypass S/P panniculectomy Social History Smoking Status: Never smoker HPI CERVICAL SPINE Details: This documentation accurately reflects the service provided and the decisions made by me, Dr. Carson Guevara MD 02/06/23 0930. Part of today?s visit was documented by [ ], acting as scribe. ALYSIA LAY is a 62 year old F here today for follow up from EMG and CT scan. She did see Dr. He two weeks ago and had an injection in her neck which she reports has helped her significantly. She does complain of numbness and tingling into her hands bilaterally, which she reports is very frustrating. Alysia patient that she had extremely good relief of her upper extremity radicular pain and numbness from the epidural injection done 2 weeks ago. Her residual symptoms seem to be related to her right hand radial palmar aspect numbness. She had a recent EMG which suggested moderate carpal tunnel syndrome. She has tried using a nighttime brace for a few nights which did not seem to give her relief. Her overall function in the entire right upper extremity has improved. She does notice a similar numbness in the left hand as well which is worsening with time. She is right-hand dominant. She likes to do crafts and erum and feels that her numbness makes it difficult for her to do those. Her neck pain is in good control. She was previously seen by me about a month ago with the following history. 01/14: Alysia comes back to review her MRI completed a few days ago. She was seen by me last week. She continues to have symptoms of right hand numbness and weakness. She does not have much in terms of axial neck pain at this time. She is unable to say if her pain and numbness and weakness is worsening with time. She denies any falls since last seen by me. To review, she was seen by me last week with the following history. She has pain in her neck that radiates down into her right arm and she notes that she has more pain in the arm than her neck. She has numbness and tingling down the arm as well. She states that the numbness sometimes get so bad that the numbness hurts. She also thinks she may have some welling in the arm too. States that [address] Delgadillo was here she did a fusion on her neck. denies anything specific that makes her pain worse. She has been using a heating pad, and takes her arthritis medication so she doesn't really take much more for her pain. She states she has taken Tylenol when it was bad but it didn't help much. Denies injections. She has done PT in the past before her surgery but notes that it wasn't helpful. She has had a recent x-ray of her neck on 12/11/22. 01/09: Alysia has had these newer symptoms for the last 1 to 1.5 months. She gets severe right upper extremity tingling numbness and pain goes into the lateral arm dorsal forearm and dorsal hand into the middle finger. She denies any left-sided symptoms today. She is right-hand dominant. She is having a tougher time holding onto things with her right hand and drops things more frequently over the last 1 month. She has also noticed that her balance difficulties have worsened over the last 1 to 2 months although she denies any recent falls. She uses a walker now since she cannot use a cane from the right upper extremity paresthesias. Of note, she underwent C3-5 ACDF and C4-T1 posterior decompression fusion by Dr. Delgadillo in December 2019. Prior to the surgery she has severe myelopathic symptoms of weakness and numbness in all 4 extremities and multiple falls. She did improve after the surgery and had baseline mild balance deficits, until 2 months ago when she started having the newer symptoms of right upper extremity weakness and numbness. Ortho Exam General General: Yes no acute distress Neurologic: Yes alert and Yes oriented x3 Spine SPINE TESTING CERVICAL THORACIC LUMBAR Musculoskeletal Strength 0=absent - 5=normal Details: Examination of the neck shows left ACDF incision scar well-healed. Posterior midline incision also well-healed. 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 Sensation symmetric bilaterally. Bruna's positive bilaterally. Lower extremity shows 5 x 5 strength. Knees show brisk reflexes. Romberg's and tandem gait were not tested because of severe balance difficulties. Examination of both hands showed negative carpal tunnel compression test, negative Tinel sign, positive Phalen test today. Coding Level of Care Code Off vis,est,level 3 Diagnoses S/P cervical spinal fusion Z98.1 Carpal tunnel syndrome of right wrist G56.01 Laterality: right Time Spent (min) 35 Assessment and Plan Assessment and Plan (1) S/P cervical spinal fusion: Status: Acute (2) Carpal tunnel syndrome: Status: Acute Qualifiers: Laterality: right Qualified Code(s): G56.01 - Carpal tunnel syndrome, right upper limb Plan I again reviewed her x-rays, recent CT, MRI of cervical spine. There does not seem to be pseudoarthrosis or significant adjacent segment degeneration that would require surgical intervention. I would also recommend an EMG at her last visit which suggested moderate right carpal tunnel syndrome. Since her symptoms of right upper extremity radicular symptoms improved with an injection, for now I would like her to continue with injections as needed by Dr. He for her radicular symptoms. There does not seem to be any need for surgical intervention for her neck at this time. For her right carpal tunnel syndrome, I discussed options of treatment which include nighttime splints, cortisone injections, versus surgery. Patient is already tried splinting without significant relief. She declined injections. She wishes to proceed with surgical release as her symptoms are affecting her quality of life she is not able to do the crafts and erum. Patient will be scheduled for right carpal tunnel syndrome. I went over risk benefits and alternatives. Patient was in agreement. Consent was signed.
[2023-02-11] MEDS: Cefazolin 3 GM in 0.9% Normal Saline (100mL Bag) 100 ML IV (10:21)
[2023-02-11] MEDS: Ropivacaine 0.5% 30 ML Vial (10:37)
[2023-02-11] MEDS: Lidocaine 1% (20 ml mdv) 20 ML Vial (10:37)
--- NOTE | 2023-02-11 11:20 | PCM.OPRPT ---
Report of Operation Date of Procedure: 02/11/23 Description of Surgical Findings:: ATTENDING SURGEON: Carson Guevara MD TELEHEALTH NURSE EDUCATOR: none PREOPERATIVE DIAGNOSIS: Right carpal tunnel syndrome. POSTOPERATIVE DIAGNOSIS: Right carpal tunnel syndrome. PROCEDURE PERFORMED: Right open carpal tunnel release. CPT 21495. INDICATIONS FOR THE PROCEDURE: The patient is a 62-year-old lady, who presents with numbness in radial fingers and EMG, consistent with carpal tunnel syndrome. All conservative management and failed. After a discussion of the risks and benefits of the procedure, consent was signed for the procedure. DETAILS OF PROCEDURE: Patient was met in the preoperative holding area and the correct side was marked as the operative extremity. The patient was brought back to the operative suite and a hand table was placed. A tourniquet was placed. A timeout was performed which correctly identified the procedure to be performed, the operative site as well as the team members. Next, MAC anesthesia was induced. Local infiltration of 1% lidocaine mixed with 0.5% ropivacaine was infiltrated in the volar wrist. Next, the arm was prepped and draped in a sterile fashion. A timeout was performed again that confirmed the site and the procedure. Next, the patient's arm was exsanguinated using the Esmarch bandage and the tourniquet was inflated to 250 mmHg. A 3 cm incision was made longitudinally in line between the middle & ring ray from Haley's cardinal line to the wrist crease. Sharp dissection was used to the level of the palmar fascia. This was incised in line with the incision in line with its fibers. Kasden retractors used to retract the fat and the fibers out of the way and revealed the transverse carpal ligament. This was incised in the proximal distal fashion to the level of the palmar fat. Once we saw this, we retracted back in order to release the proximal end of the carpal tunnel ligament. The median nerve was visualized in its entirety throughout this part of the procedure. There were no masses in the carpal tunnel noted. The nerve did not look very hyperemic. Once I was satisfied with the release and it was checked both proximally and distally with a finger in the incision, it was irrigated with copious amounts of normal saline. Wound was then closed with 4-0 nylon in interrupted fashion. Skin was cleaned and the tourniquet was let down. The wounds were dressed with Adaptic gauze, Webril and a sterile Jeffy wrap. Next, the patient was transported to the PACU in stable condition. I was present for the entire case. ESTIMATED BLOOD LOSS: Minimal. COMPLICATIONS: None. DISPOSITION: The patient will be discharged home when pain is controlled from PACU. Follow up in 2 weeks to get sutures removed. Light weightbearing restrictions. Admit VTE Documentation VTE Mechan Device Prophylaxis: None Reason prophylaxis not ordered:: Treatment Not Indicated Procedures Musculoskeletal [id number]: Other Procedure See Report
--- NOTE | 2023-02-11 11:32 | PCM.PN.ORT ---
Subjective Subjective Patient seen in PACU. Pain well-controlled. Objective Data Objective Data Vital Signs: Vital Signs Temp Pulse Resp BP Pulse Ox O2 Del Method 96.9 F L 66 16 106/56 L 92 Room Air 02/11/23 11:25 02/11/23 11:25 02/11/23 11:25 02/11/23 11:25 02/11/23 11:25 02/11/23 11:25 Oxygen Delivery Method Room Air Weight: 264 lb 8.875 oz Body Mass Index (BMI) 48.4 Intake & Output: Intake and Output for Last 24 Hours 02/09/23 02/10/23 02/11/23 23:59 23:59 23:59 Intake Total 115 / 115 Balance 115 / 115 Physical Exam Narrative Bulky dressing well-fitting. Distal neurovascular exam is intact. Assessment & Plan Assessment/Plan (1) Carpal tunnel syndrome: QUALIFIERS: Laterality: right Qualified Code(s): G56.01 - Carpal tunnel syndrome, right upper limb PLAN: Plan Status post right carpal tunnel release. Patient doing well. Will be discharged home. Will keep bulky dressing for 4 to 5 days followed by Band-Aid changed every day after. Will follow-up in 2 weeks for suture removal. All questions were answered.
== END 2023-02-11 12:29 | disposition home or self-care (01) ==
LOC: SDC 09:06 → AC 09:08
PROVIDERS: PCP Family Medicine; Referring Provider Orthopaedic Surgery Orthopaedic Surgery of the Spine; Visit Provider Orthopaedic Surgery Orthopaedic Surgery of the Spine
PROC: (CPT 64721; principal; 2023-02-11 10:15)
DX: G56.01 Carpal tunnel syndrome, right upper limb (principal); I10 Essential (primary) hypertension; Z98.1 Arthrodesis status; F32.9 Major depressive disorder, single episode, unspecified; Z90.711 Acquired absence of uterus with remaining cervical stump; Z98.84 Bariatric surgery status
CPT/HCPCS: 64721; 01810; J7120; J2405

== ENCOUNTER → 2023-03-19 | Outpatient (CLI) | payer OTHER, SELFPAY ==
--- NOTE | 2023-03-19 12:25 | NEURO ---
NCS and/or EMG Patient Report Ordering Doctor: Carson Guevara DATE OF SERVICE: 03/19/23 Alysia presents for electrodiagnostic testing of the left upper limb. She reports numbness and tingling in the left hand. Electrodiagnostic findings: Left median motor nerve demonstrates prolonged latency with normal amplitude and conduction velocity. Left ulnar motor responses within normal limits. Normal left median ulnar F?wave. Prolonged left median sensory latency at the wrist. Needle EMG testing was performed in the left upper limb. All muscles tested showed no evidence of denervation with normal motor unit action potentials. Electrodiagnostic impression: This is an abnormal study. 1. Electrodiagnostic findings demonstrate left-sided median mononeuropathy. This is consistent with a mild to moderate left carpal tunnel syndrome. Multi Select Codes Neurology Neurology Interp Codes: 22878-46 Musc test done w/n test comp (interp) and 26498-25 Nrv cndj tst 5-6 studies (interp)
== END | disposition home or self-care (01) ==
LOC: PSN 10:37
PROVIDERS: PCP Family Medicine; Referring Provider Orthopaedic Surgery Orthopaedic Surgery of the Spine; Visit Provider Orthopaedic Surgery Orthopaedic Surgery of the Spine
DX: G56.00 Carpal tunnel syndrome, unspecified upper limb (principal); R20.0 Anesthesia of skin
CPT/HCPCS: 95886; 95909

== ENCOUNTER 2023-04-01 05:58 | Day surgery (SDC) | payer OTHER, SELFPAY ==
--- OUTSIDE RECORDS SUMMARY | 2023-04-01 06:00 | XMS RPT_ITS | CCD ---
Author Name Unknown Address [address] [place] [address] Organization [facility] Care Team Providers Care Supervisor [employer] Name Role Phone Radha Tubbs Unavailable Unavailable PROVIDER, UNKNOWN Unavailable Unavailable Kirstie Gallo Unavailable Unavailable Karan Galarza MD Unavailable Kirstie Gallo MD Primary Care Provider ALYSIA DELGADILLO Referring Unavailable ALYSIA DELGADILLO Attending Unavailable KIRSTIE GALLO Primary Care Unavailabl e DAVIDE CARBAJAL Referring Unavailable ALYSIA DELGADILLO Attending Unavailable KIRSTIE GALLO Primary Care Unavailabl e KIRSTIE GALLO Primary Care Unavailabl e KIRSTIE GALLO Referring Unavailabl ALYSIA Dominguez Attending Unavailable KIRSTIE GALLO Primary Care Unavailabl e ALYSIA DELGADILLO Attending Unavailable ALYSIA DELGADILLO Referring Unavailable KIRSTIE GALLO Primary Care Unavailabl e IVIS MCDONALD L Referring Unavailable ALYSIA DELGADILLO Attending Unavailable KIRSTIE GALLO Primary Care Unavailabl e SELF, SELF Referring Unavailable ALYSIA DELGADILLO Attending Unavailable Kirstie Gallo MD Primary Care Provider KIRSTIE GALLO Primary Care Unavailabl e Allergies Allergy Classification Reported Allergen(s) Allergy Type Date of Onset Reaction(s) Facility (1 source) Adhesive Tape; Translations: [ADHESIVE TAPE] allergy to substance 03-03-19 rash, swelling [facility] Work Phone: (1 source) Dust; Translations: [DUST] allergy to substance 03-03-19 [facility] Work Phone: (1 source) Mold Extract; Translations: [MOLD] Drug Allergy 03-03-19 [facility] Work Phone: (1 source) Sulfacetamide Drug Allergy 03-03-19 upset stomach, hives as a child [facility] Work Phone: (1 source) PLANT POLLENS; Translations: [PLANT POLLENS] allergy to substance 03-03-19 [facility] Work Phone: (1 source) WOOL; Translations: [WOOL] allergy to substance 03-03-19 [facility] Work Phone: (1 source) STINGING INSECTS; Translations: [STINGING INSECTS] allergy to substance 03-03-19 [facility] Work Phone: (5 sources) Erythromycin; Translations: [ERYTHROMYCIN] Drug Allergy 01-10-20 Hives, GI Upset [facility] (3 sources) *Adhesive Tape Propensity to adverse reactions 11-18-19 [facility] (3 sources) *Seasonal Propensity to adverse reactions to substance 12-29-19 [facility] Medications Current Medications Medication Drug Class(es) Dates Sig (Normalized) Sig (Original) acetaminophen 325 mg oral tablet (3 sources) Start: 01-13-2020 take 2 tablets by mouth three times daily acetaminophen 325 MG tablet Take 2 tablets by mouth 3 times daily for 20 days. 120 tablet 0 01/13/2020 Active Completed/Discontinued Medications Medication Drug Class(es) Dates Sig (Normalized) Sig (Original) biotin 5 mg oral capsule (2 sources) Start: 03-03-2018 BIOTIN 5000 MCG CAPS takes one daily BIOTIN [id number] Karan Galarza MD Problems Active Problems Problem Classification Problem Date Documented Da te Episodic/Chronic Abdominal hernia (2 sources) Ventral hernia without obstruction or gangrene; Translations: [Ventral hernia without obstruction or gangrene] Onset: 11-19-2017 Episodic Abdominal pain (2 sources) Pelvic and perineal pain; Translations: [Pelvic and perineal pain] Onset: 11-19-2017 Allergic reactions (6 sources) Allergy status to sulfonamides status; Translations: [Allergy status to other antibiotic agents status] Onset: 11-19-2017 Episodic Anxiety disorders (2 sources) Anxiety disorder, unspecified; Translations: [Anxiety disorder, unspecified] Onset: 11-19-2017 Chronic Complications of surgical procedures or medical care (2 sources) Postprocedural pelvic peritoneal adhesions; Translations: [Postprocedural pelvic peritoneal adhesions] Onset: 11-19-2017 Episodic Essential hypertension (5 sources) Essential (primary) hypertension; Translations: [Benign hypertension] Onset: 11-19-2017 12-29-2019 Chronic Menopausal disorders (2 sources) Postmenopausal bleeding; Translations: [Postmenopausal bleeding] Onset: 11-19-2017 Chronic Menopausal disorders (2 sources) Hormone replacement therapy; Translations: [Hormone replacement therapy] Onset: 11-19-2017 Episodic Osteoarthritis (3 sources) Unspecified osteoarthritis, unspecified site; Translations: [Unilateral primary osteoarthritis, left knee] Onset: 11-19-2017 03-03-2018 Chronic Other and unspecified benign neoplasm (2 sources) Personal history of colonic polyps; Translations: [Personal history of colonic polyps] Onset: 11-19-2017 Episodic Other and unspecified benign neoplasm (2 sources) Benign neoplasm of left ovary; Translations: [Benign neoplasm of left ovary] Onset: 11-19-2017 Episodic Other connective tissue disease (1 source) Swelling of upper limb; Translations: [Other specified soft tissue disorders] 01-03-2023 Episodic Other endocrine disorders (2 sources) Polycystic ovarian syndrome; Translations: [Polycystic ovarian syndrome] Onset: 11-19-2017 Chronic Other endocrine disorders (3 sources) Polycystic ovary syndrome; Translations: [Polycystic ovarian syndrome] 12-29-2019 Chronic Other gastrointestinal disorders (2 sources) Peritoneal adhesions (postprocedural) (postinfection); Translations: [Peritoneal adhesions (postprocedural) (postinfection)] Onset: 11-19-2017 Episodic Other gastrointestinal disorders (2 sources) Bariatric surgery status; Translations: [Bariatric surgery status] Onset: 11-19-2017 Episodic Other nervous system disorders (3 sources) Spinal cord disease; Translations: [Disease of spinal cord, unspecified] Onset: 01-10-2020 01-10-2020 Chronic Other nutritional; endocrine; and metabolic disorders (2 sources) Body mass index (BMI) 45.0-49.9, adult; Translations: [Body mass index (BMI) 45.0-49.9, adult] Onset: 11-19-2017 Chronic Other nutritional; endocrine; and metabolic disorders (2 sources) Morbid (severe) obesity due to excess calories; Translations: [Morbid (severe) obesity due to excess calories] Onset: 11-19-2017 Chronic Other nutritional; endocrine; and metabolic disorders (1 source) Morbid obesity; Translations: [Morbid (severe) obesity due to excess calories] Onset: 01-02-2020 01-02-2020 Chronic Other nutritional; endocrine; and metabolic disorders (2 sources) Body mass index 40+ - severely obese; Translations: [Morbid (severe) obesity due to excess calories] Onset: 01-02-2020 01-02-2020 Chronic Spondylosis; intervertebral disc disorders; other back problems (6 sources) Cervical radiculopathy; Translations: [Radiculopathy, cervical region] Onset: 12-08-2019 Episodic Unclassified (4 sources) Family history of osteoporosis; Translations: [Acquired absence of other specified parts of digestive tract] Onset: 11-19-2017 Episodic Past or Other Problems Problem Classification Problem Date Documented Da te Episodic/Chronic Mood disorders (4 sources) Major depressive disorder, single episode, unspecified; Translations: [Mood disorders] Onset: 11-19-2017 01-05-2020 Unclassified (1 source) Problem Results Test Name Value Interpretation Reference Range Facil ity Vital Signs Date Time Vital Sign Value Performing Clinician Facility 01-03-2023 17:47-0500 Body temperature 98.8 [degF] Liv Ojeda APRN.CNP Work Phone: [facility] 01-03-2023 17:47-0500 Body weight 121.56 kg Liv Ojeda APRNANA LILIA Work Phone: [facility] 01-03-2023 17:47-0500 Diastolic blood pressure 69 mm[Hg] Liv Ojeda APRNANA LILIA Work Phone: [facility] 01-03-2023 17:47-0500 Heart rate 79 /min Liv Ojeda APRN.CNP Work Phone: [facility] 01-03-2023 17:47-0500 Respiratory rate 18 /min Liv Ojeda HOSE TENDER.CARD PUNCHER Work Phone: [facility] 01-03-2023 17:47-0500 SaO2% (BldA) [Mass fraction] 96 % Liv Ojeda HOSE TENDER.CARD PUNCHER Work Phone: [facility] 01-03-2023 17:47-0500 Systolic blood pressure 137 mm[Hg] Liv Ojeda HOSE TENDER.CARD PUNCHER Work Phone: [facility] 07-11-2021 13:31-0400 Body height 157.5 cm Alysia Delgadillo MD Work Phone: [facility] 07-11-2021 13:31-0400 Body mass index (BMI) [Ratio] 42.98 kg/m2 Alysia Delgadillo MD Work Phone: [facility] 07-11-2021 13:31-0400 Body temperature 96.8 [degF] Alysia Delgadillo MD Work Phone: [facility] 07-11-2021 13:31-0400 Body weight 106.59 kg Alysia Delgadillo MD Work Phone: [facility] 07-11-2021 13:31-0400 Heart rate 90 /min Alysia Delgadillo MD Work Phone: [facility] 07-11-2021 13:31-0400 SaO2% (BldA) [Mass fraction] 93 % Alysia Delgadillo MD Work Phone: [facility] 09-13-2020 14:27-0400 Body height 157.5 cm Alysia Delgadillo MD Work Phone: [facility] 09-13-2020 14:27-0400 Body mass index (BMI) [Ratio] 44.08 kg/m2 Alysia Delgadillo MD Work Phone: [facility] 09-13-2020 14:27-0400 Body weight 109.32 kg Alysia Delgadillo MD Work Phone: [facility] NEGATED: Highlighted [id number] 10:06-0500 BMI (Body Mass Index) 50.06 kg/m2 Meli Moxcey VERTICAL BORING MILL OPERATOR [facility] Work Phone: NEGATED: Highlighted [id number] 10:06-0500 Body weight 119.75 kg Meli Moxcey VERTICAL BORING MILL OPERATOR [facility] Work Phone: NEGATED: Highlighted [id number] 10:06-0500 Body weight 120 kg Meli Moxcey VERTICAL BORING MILL OPERATOR [facility] Work Phone: NEGATED: Highlighted [id number] 10:06-0500 BP Diastolic 85 mm[Hg] Meli Moxcey VERTICAL BORING MILL OPERATOR [facility] Work Phone: NEGATED: Highlighted [id number] 10:06-0500 BP Diastolic 74 mm[Hg] Meli Moxcey VERTICAL BORING MILL OPERATOR [facility] Work Phone: NEGATED: Highlighted [id number] 10:06-0500 BP Systolic 150 mm[Hg] Meli Moxcey VERTICAL BORING MILL OPERATOR [facility] Work Phone: NEGATED: Highlighted [id number] 10:06-0500 BP Systolic 130 mm[Hg] Meli Moxcey VERTICAL BORING MILL OPERATOR [facility] Work Phone: NEGATED: Highlighted [id number] 10:06-0500 Height 154.94 cm Meli Moxcey VERTICAL BORING MILL OPERATOR [facility] Work Phone: NEGATED: Highlighted [id number] 10:06-0500 Height 155 cm Meli Moxcey VERTICAL BORING MILL OPERATOR [facility] Work Phone: NEGATED: Highlighted [id number] 10:06-0500 Pulse (Heart Rate) 68 /min Meli Moxcey VERTICAL BORING MILL OPERATOR [facility] Work Phone: Encounters Encounter Date Encounter Type Care Provider Facility Start: 01-03-2023 End: 01-03-2023 ambulatory KIRSTIE GALLO Facility:[facility] Start: 01-03-2023 End: 01-03-2023 Patient encounter procedure Liv Ojeda HOSE TENDER.CARD PUNCHER Work Phone: [facility] Procedures Date Procedure Procedure Detail Performing Clinician Start: 07-11-2021 Radex spine cervical 2 or 3 views Alysia Delgadillo MD Work Phone: Start: 12-04-2018 Colonoscopy Liv jeong HOSE TENDER.CARD PUNCHER Work Phone: Start: 03-03-2018 End: 03-03-2018 BMI documented as above normal parameters - follow-up documented Karan Galarza MD Work Phone: Start: 03-03-2018 End: 03-03-2018 Documentation of current medications Karan Galarza MD Work Phone: Start: 03-03-2018 End: 03-03-2018 Osteoarthritis assess Karan Galarza MD Work Phone: Start: 03-03-2018 End: 03-03-2018 Pain assessment documented as positive - follow-up documented Karan Galarza MD Work Phone: Start: 03-03-2018 End: 03-03-2018 Tobacco non-user Karan Galarza MD Work Phone: NEGATED: Highlighted rowStart: 03-03-2018 End: 03-03-2018 Documentation of current medications Meli Hines LPN Plan of Treatment Date Care Activity Detail Author Start: 10-31-2027 Urine microalbumin profile DTaP,Tdap,Td Vaccine (3 - Td or Tdap) [facility] Start: 12-28-2022 Diabetes Screening Diabetes Screening [facility] Start: 02-10-2022 Depression Assessment Depression Assessment [facility] Start: 10-11-2021 Influenza vaccination INFLUENZA VACCINE (Season Ended) [facility] Start: 2021 RSV Vaccine (1 - 1-dose 60+ series) RSV Vaccine (1 - 1-dose 60+ series) [facility] Start: 10-11-2020 Influenza vaccination INFLUENZA VACCINE (#1) [facility] Start: 09-21-2020 End: 09-21-2020 Telemedicine consultation with patient 09/21/2020 Telemedicine Orthopaedics Alysia Delgadillo MD [address] [place], [place] [id number] [facility] Start: 12-05-2019 Colonoscopy Colonoscopy [facility] Start: 12-05-2019 Colorectal Cancer Screening Colorectal Cancer Screening [facility] Start: 03-03-2018 End: 03-03-2018 Appointment Appointment [facility] Work Phone: Start: 03-03-2018 End: 03-03-2018 Radiologic examination knee 3 views XR [id number] [facility] Work Phone: Start: 2011 Zoster vaccine hzv live for subcutaneous use ZOSTER (SHINGLES) VACCINE (1 of 2) [facility] Start: 2006 Cologuard (FIT-DNA) Cologuard (FIT-DNA) [facility] Start: 2006 Colonoscopy COLORECTAL CANCER SCREENING DISCUSSION [facility] Start: [address] Colonography [facility] Start: 2006 Fecal Occult Blood Fecal Occult Blood [facility] Start: 2006 Lipid 1996 panel - Serum or Plasma Lipid Screening [facility] Start: 2006 Sigmoidoscopy Sigmoidoscopy [facility] Start: 2001 Fasting lipid profile LIPID SCREENING [facility] Start: 2001 Mammography Mammogram Screening [facility] Start: 2001 Screening mammography MAMMOGRAM SCREENING DISCUSSION [facility] Start: 1991 HPV Testing HPV Testing [facility] Start: 1982 Pap Testing Pap Testing [facility] Start: 1982 Screening for malignant neoplasm of cervix CERVICAL CANCER SCREENING DISCUSSION [facility] Start: 02-14-1980 Third diphtheria, tetanus and acellular pertussis (DTaP) vaccination TDAP (ADULT) [facility] Start: 1979 Hepatitis C Screening Hepatitis C Screening [facility] Start: 1979 HIV Screening HIV Screening [facility] Start: 1979 Tetanus vaccination TETANUS [facility] Start: 02-14-1976 HIV screening HIV SCREENING DISCUSSION [facility] Start: 1973 COVID-19 VACCINE (1) COVID-19 VACCINE (1) [facility] Start: 1966 COVID-19 VACCINE (#1) COVID-19 VACCINE (#1) [facility] Start: 1961 Hepatitis C antibody, confirmatory test HEPATITIS C VIRUS SCREENING [facility] End: 09-13-2020 MRI of cervical spine [facility] Work Phone: Immunizations Immunization Date Immunization Notes Care Provider [facility] 10-25-2019 influenza virus vaccine, unspecified formulation Alysia Delgadillo MD Work Phone: [facility] Payers Date Payer Category Payer Private Health Insurance [facility] [id number] 2019-Present [phone] [address] [address] [place] [address] [id number] 2012 Private Health Insurance [id number] 2012 Unknown [id number] 1961 Unknown [id number] 1961 Unknown [id number] 1961 Unknown [id number] 1961 Unknown [id number] 1961 Unknown [id number] 1961 Unknown [id number] 1961 Unknown [id number] Unknown Social History Date Type Detail Facility Start: 12-29-2019 End: 01-03-2023 Tobacco smoking status NHIS Never smoker [facility] Start: 12-29-2019 End: 01-03-2023 Tobacco use and exposure Never used [facility] Start: 09-13-2020 End: 01-03-2023 Alcohol intake Current drinker of alcohol (finding) [facility] Start: 01-10-2020 History SDOH Alcohol Frequency 3 [facility] Start: 01-10-2020 History SDOH Alcohol Std Drinks 1 [facility] Start: 12-29-2019 Alcohol Comment once a month [facility] Start: 1960 Sex Assigned At Not on file [facility] Exposure to SARS-CoV-2 (event) Not sure [facility] Start: 01-16-2020 End: 01-03-2023 History of Social function [facility] Start: 01-16-2020 End: 01-03-2023 Tobacco use panel [facility] National Score (1-100), lower number is lower risk Not on file [facility] Start: 12-04-2018 Alcohol Comment occcasionally [facility] NEGATED: Highlighted rowStart: 03-03-2018 End: 03-03-2018 Alcohol use Alcohol use [facility] Work Phone: NEGATED: Highlighted rowStart: 03-03-2018 End: 03-03-2018 Details of drug misuse behavior Details of drug misuse behavior [facility] Work Phone: NEGATED: Highlighted rowStart: 03-03-2018 End: 03-03-2018 Employment detail Employment detail [facility] Work Phone: NEGATED: Highlighted rowStart: 03-03-2018 End: 03-03-2018 Assertion Never smoker [facility] Work Phone: Medical Equipment Procedure Code Equipment Code Equipment Original Text Equi pment Identifier Dates [id number] Bone Tis deepika [id number] Progress note 01-03-2023 Note Date & Type Note Facility 01-03-2023 Note HNO ID: [id number] Author: Liv Ojeda APRN.NEYDA Service: ? Author Type: Nurse Practitioner Type: Progress Notes Filed: 01/03/2023 5:57 PM Note Text: This note was created using [employer]. Subjective Alysia Lay is a 62 year old female. 62 year old female presents for right arm pain Acute onset 4 days ago +right arm swelling +right arm numbness Endorses that she feels it is weaker than left Review of Systems Objective BP 137/69 Pulse 79 Temp 37.1 ?C (98.8 ?F) Resp 18 Wt 121.6 kg (268 lb) LMP 12/14/2013 SpO2 96% BMI 49.02 kg/m? Physical Exam Musculoskeletal: General: Swelling and tenderness present. Comments: RIght upper extremity with ecchymosis forearm +swelling when compared to left +neuro RP + 2 Assessment and Plan ASSESSMENT/PLAN: 1. Arm swelling - ICD9: 729.81, ICD10: M79.89 X 4 days +numbness and tingling +reduced strength Fracture vs. DVT vs. CVA Referred to [facility] Liv Ojeda APRN.CARD PUNCHER [facility] History of Present illness Narrative 01-03-2023 Liv Ojeda APRN.NEYDA - 01/03/2023 5:53 PM EST Note Date & Type Note Facility 01-03-2023 History of Presen t illness Narrative This note was created using [employer]. Subjective Alysia Lay is a 62 year old female. 62 year old female presents for right arm pain Acute onset 4 days ago +right arm swelling +right arm numbness Endorses that she feels it is weaker than left Review of Systems Objective BP 137/69 Pulse 79 Temp 37.1 C (98.8 F) Resp 18 Wt 121.6 kg (268 lb) LMP 12/14/2013 SpO2 96% BMI 49.02 kg/m Physical Exam Musculoskeletal: General: Swelling and tenderness present. Comments: RIght upper extremity with ecchymosis forearm +swelling when compared to left +neuro RP + 2 Assessment and Plan ASSESSMENT/PLAN: 1. Arm swelling - ICD9: 729.81, ICD10: M79.89 X 4 days +numbness and tingling +reduced strength Fracture vs. DVT vs. CVA Referred to ED [facility] Liv Ojeda APRN.CARD PUNCHER documented in this encounter [facility] History of Present illness Narrative 07-11-2021 Alysia Delgadillo MD - 07/11/2021 1:30 PM EDT Note Date & Type Note Facility 07-11-2021 History of Present illness Narrative Chief Complaint / Reason for Visit : follow up HPI: Danielle Lay returns today in follow up. She was last seen on 09/21/2020 s/p ACDF C3-5 and PSFD C3-T1 on 01/10/20. She had shoulder surgery since her last visit with Dr. Dubon. She has stable right hand and arm numbness/tingling. She notes spasms in the right foot. She uses a cane for long distances. She denies falls. No fevers or chills. No dysphagia. She is now retired. She takes nabutone and gabapentin. Chart notes reviewed. Medications: Outpatient Medications Prior to Visit Medication Sig Dispense Refill acetaminophen 325 MG tablet Take 2 tablets by mouth 3 times daily for 20 days. 120 tablet 0 escitalopram 20 MG tablet Take 20 mg by mouth daily every morning. ferrous sulfate 324 (65 Fe) MG Tab DR tablet Take 324 mg by mouth daily every morning. gabapentin 300 MG capsule TAKE 1 CAPSULE BY MOUTH THREE TIMES DAILY 90 capsule 1 lidocaine 5 % Patch patch Place 1 patch on skin as needed. Max of 12 hours of application then remove. LORazepam 1 MG tablet Take 1 tablet by mouth As directed for 1 day. 1 tab 30 min prior to MRI, 2nd tab immediately prior if needed. Do not drive. 2 tablet 0 losartan-hydrochlorothiazide 50-12.5 MG tablet Take 1 tablet by mouth 2 times daily. nabumetone 500 MG tablet Take 1,000 mg by mouth 2 times daily. Naltrexone-buPROPion HCl ER (Contrave) 8-90 MG Tab SR 12 HR Take 2 tablets by mouth 2 times daily. ondansetron (Zofran) 4 MG tablet Take 1 tablet by mouth every 8 hours as needed for Nausea. 20 tablet 0 oxyCODONE 5 MG tablet Take 1-2 tablets by mouth every 4 hours as needed for Moderate Pain or Severe Pain for up to 6 days. 50 tablet 0 Vitamin D3 50 MCG (2000 UT) capsule Take 2,000 Units by mouth daily every morning. No facility-administered medications prior to visit. Physical Exam: General: Vitals: 07/11/21 1331 Pulse: 90 Temp: 96.8 degrees F (36 degrees C) SpO2: 93% Weight: 106.6 kg (235 lb) Height: 1.575 m (5' 2 ) No acute distress Psych: A+Ox3 Gait: Wide based gait Toe Walking Yes Heel Walking Yes Stair Stepping Yes Romberg No Peripheral Vascular: LE swelling No Cap refill < 2 seconds Skin: Lesions on Skin No Spine: No significant tenderness throughout Well healed incision Range of motion of the cervical spine is limited in flexion, extension, lateral bending and rotation due to fusion. Neuro: Upper extremity (R/L): deltoids R 5/5 L 5/5, biceps R 5/5, L 5/5, wrist extensors R 5/5 L 5/5, triceps R 5/5, L 5/5, finger flexors R 5/5, L 5/5, and first dorsal interossei R 4/5 L 5/5. Lower extremity (R/L): hip flexors R 5/5, L 5/5, quadriceps R 5/5, L 5/5, anterior tibialis R 4/5, L 5/5, hamstrings R 5/5, L 5/5, gastrocsoleus R 5/5, L 5/5. Reflexes (R/L): biceps R +2 / L +2, triceps R +2 / L +2, brachioradialis R +2 / L +2, patellar R +2 / L +2, Achilles deep tendon R +2 / L +2. Positive bilateral upper extremities Hoffmans Sensation to light touch in the upper and lower extremities are decreased in right upper extremity in a nondermatomal distribution. Imaging Independent review Xrays cervical spine 07/11/2021 reveals stable instrumentation MRI cervical spine 09/13/2020 reveals prior C3-5 anterior instrumentation and posterior C3-C7 laminectomy with C3-T1 instrumentation. No significant stenosis noted Clinical impression: s/p ACDF C3-5 and PSFD C4-T1 on 01/10/20 Bilateral arm paresthesias, nondermatomal Plan: Ms. Lay is improved overall compared to preop. Imaging stable. Continue activities as tolerated. Follow up as needed. Plan of care discussed. All questions answered. She and her are in understanding. documented in this encounter [facility] Evaluation note Note Date & Type Note Facility documented in this encounter [facility] Evaluation note Note Date & Type Note Facility documented in this encounter [facility] Evaluation note Note Date & Type Note Facility documented in this encounter [facility] Evaluation note Note Date & Type Note Facility documented in this encounter [facility] Summary Purpose Family History No Family History Records FoundThere may be information available, but it has not been provided by the sender.No Family History Records FoundNo Family History Records Found Advance Directives No Advanced Directives Records FoundLatest Code Status on File Code Status Date Activated Date Inactivated Comments Full Code 01/10/2020 6:30 PM Latest Code Status on File Code Status Date Activated Date Inactivated Comments Full Code 01/10/2020 6:30 PM Procedure Findings Note OPERATIVE NOTEDATE OF PROCED URE: 11/19/2017SURGEON: OVIDIO MERA M.D.ASSISTANTS:See chartPREOPERATIVE DIAGNOSES:Hernia and intra-abdominal adhesions and ovarian cystPOSTOPERATIVE DIAGNOSES:SamePROCEDURE:Laparoscopic lysis of adhesionsANESTHESIA: General.COMPLICATIONS: None.BLOOD LOSS: less than 50INDICATIONS: The patient is a 57 y.o. year old female with history of abovepreop diagnosis. She has left ovarian cyst and is scheduled to undergolaparoscopic left oophorectomy per gynecology. I was asked to performexploratory laparoscopy because of her previous multiple abdominal operationsand known ventral hernia and morbid obesity. We will to successfully placeports and explore the abdomen and did bluntly lyse some adhesions to allowexposure of the pelvis to proceed with laparoscopic oophorectomy. I explainedthe risks with the patient including, but not limited to: bleeding, acute and/orchronic pain, infection, recurrence, injury to other organs or structures, needfor further surgery. A (more content not included)... Chief Complaint Chief Complaint Description Start Date left knee pain Preliminary chief co mplaint data, not yet signed by the author as of Instructions Instruction Description Start Date Please follow-up with Primar y Care Physician or Wiper Blender for treatment or adjustment of medication regarding elevated blood pressure.Patient advised to follow-up with Primary Care Physician for BMI management. Assessments There may be information available, but it has not been provided by the sender. Review of System There may be information available, but it has not been provided by the sender. History of Present Illness There may be information available, but it has not been provided by the sender. Reason for Referral Specialty Diagnoses / Procedures Referred By Narendra ibrahim Referred To Contact Diagnoses Cervical radiculopathy Procedures MRI SPINE CERVICAL WITHOUT CONTRAST ME MRI, CERV SPINE Alysia Delgadillo MD [address] [place] [address] Referral ID Status Reason Start Date Expiration Date Visits Re quested Visits Authorized [id number] Closed 08/09/2020 09/03/2021 1 1 Specialty Diagnoses / Procedures Referred By Narendra ibrahim Referred To Contact Diagnoses Neck pain Procedures QUESTIONNAIRE SERIES Alysia Delgadillo MD [address] [place] [address] Referral ID Status Reason Start Date Expiration Date V isits Requested Visits Authorized [id number] New Request 07/04/2021 07/29/2022 1 1 Additional Source Comments INFORMATION SOURCE (unrecogn ized section and content) DATE CREATED AUTHOR AUTHOR'S ORGANIZ ATION 07/12/2021 [facility] DATE CREATED AUTHOR AUTHOR'S ORGANDWIGHT ATION 01/05/2023 [facility] Reason for Visit (unrecogniz ed section and content) Specialty Diagnoses / Procedures Referred By Narendra t Referred To Contact Diagnoses Cervical radiculopathy Procedures MRI SPINE CERVICAL WITHOUT CONTRAST ME MRI, CERV SPINE Alysia Delgadillo MD [address] [place] [address] Referral ID Status Reason Start Date Expiration Date Visits Re quested Visits Authorized [id number] Closed 08/09/2020 09/03/2021 1 1 Reason Comments Other 6 month F/U Reason Comments Arm Numbness R arm numbness, wris t pain x4 days Care Teams (unrecognized sec tion and content) [employer] Relationship Specialty Start Date End Date Kirstie Gallo MD [address] [place], [place] [phone] PCP - General Family Medicine 12/29/19 [employer] Relationship Specialty Start Date End Date Kirstie Gallo MD [address] [place], [place] [id number] PCP - General Family Medicine 12/29/19 [employer]visor [employer] Relationship Specialty Start Date End Date Kirstie Gallo MD [address] [facility] [place], [place] [phone] PCP - General Family Medicine 01/09/14 Source Comments (unrecognize d section and content) In the event this informatio n is protected by the Federal Confidentiality of Alcohol and Drug Abuse Patient Records regulations: The Federal rules restrict any use of the information to criminally investigate or prosecute any alcohol or drug abuse patient.[facility] FOR RECORDS PERTAINING TO PATIENTS WHO ARE OR HAVE BEEN ENROLLED IN A CHEMICAL DEPENDENCY/SUBSTANCEABUSE PROGRAM, SOME INFORMATION MAY BE OMITTED. This clinical summary was aggregated from multiple sources. Caution should be exercised in using it in the provision of clinical care. This summary normalizes information from multiple sources, and as a consequence, information in this document may materially change the coding, format and clinical context of patient data. In addition, data may be omitted in some cases. CLINICAL DECISIONS SHOULD BE BASED ON THE PRIMARY CLINICAL RECORDS. [facility] [employer] provides no warranty or guarantee of the accuracy or completeness of information in this document.
[2023-04-01 06:34] VITALS: BP 153/90; PULSE 70; RESP 16; TEMP 36.7; O2SAT 95; BMI 48.3
[2023-04-01] MEDS: Lactated Ringers 1,000 ML 15 ML IV (06:46)
--- NOTE | 2023-04-01 07:32 | PCM.HP.BLA ---
History and Physical MR#: [id number] Acct: [id number] Name: ALYSIA LAY Rep #: [id number] : 1960 Provider: Dr. Carson Guevara MD Age/Sex: 63/F Location: [facility] [place] Status: Signed Intake Vital Signs 02/12/2408:40 02/26/2411:58 Height 5 ft 2 in 5 ft 2 in Intake Visit Reasons: LEFT WRIST Chief Complaint: Cervical spine Allergies povidone-iodine Allergy (Severe, Verified 03/21/23 13:38) Rash Medications losartan 50 mg-hydrochlorothiazide 12.5 mg tablet 1 tab PO BID 12/07/19 [History Confirmed 03/21/23] nabumetone 500 mg tablet 1,000 mg PO BID 12/07/19 [History Confirmed 03/21/23] cholecalciferol (vitamin D3) 50 mcg (2,000 unit) capsule 50 mcg PO DAILY 01/31/20 [History Confirmed 03/21/23] escitalopram oxalate 20 mg tablet 20 mg PO DAILY 01/31/20 [History Confirmed 03/21/23] ferrous sulfate 325 mg (65 mg iron) tablet (Feosol) 325 mg PO DAILY 01/31/20 [History Confirmed 03/21/23] gabapentin 300 mg capsule 400 mg PO TID 01/31/20 [History Confirmed 03/21/23] albuterol sulfate 90 mcg/actuation aerosol inhaler 1 inh inhalation Q6H PRN sob 10/31/20 [History Confirmed 03/21/23] biotin 10,000 mcg capsule 10,000 mcg PO DAILY 10/31/20 [History Confirmed 03/21/23] diclofenac sodium 1 % topical gel (Voltaren Arthritis Pain) 1 ea topical PRN PRN Pain 10/31/20 [History Confirmed 03/21/23] lidocaine 5 % topical patch 1 patch topical DAILY PRN Pain 10/31/20 [History Confirmed 03/21/23] vitamin B12 1,000 mcg-folic acid 400 mcg sublingual tablet 1 tab sublingual DAILY 10/31/20 [History Confirmed 03/21/23] acetaminophen 325 mg capsule 650 mg (2 x 325 mg) PO Q6H PRN pain #40 caps 02/11/23 [Rx Confirmed 03/21/23] PFSH Medical History Anxiety Arthritis Asthma CPAP (continuous positive airway pressure) dependence Depression History of echocardiogram History of pain when walking History of steroid therapy History of stress test Hypertension Non-smoker Walker as ambulation aid Wears glasses Surgical History History of History of esophagogastroduodenoscopy (EGD) History of partial hysterectomy Hx of colonoscopy Hx of fusion of cervical spine Hx of gastric bypass Hx of shoulder surgery S/P panniculectomy Social History Smoking Status: Never smoker HPI LEFT WRIST Details: This documentation accurately reflects the service provided and the decisions made by me, Dr. Carson Guevara MD 03/21/23 [id number]. Part of today?s visit was documented by [ ], acting as scribe. ALYSIA LAY is a 63 year old F here today for EMG results from left upper extremity. She is still experiencing numbness and tingling into her thumb, index and ring finger. She would like to discuss results and next steps. Alysia is now 1 month status post right-sided carpal tunnel release surgery. She has done extremely well with that. She denies any wound issues. The incision is healed pretty well. She has been able to do fine activities with the right hand with much better precision. Her numbness in her radial digits has improved. She obtain EMG of the left upper extremities and is here to review the findings. She continues to have numbness in the radial 3 digits of the left hand. Ortho Exam General General: Yes no acute distress Neurologic: Yes alert and Yes oriented x3 Left Wrist/Hand WRIST: Examination of the right wrist shows incision scar well-healed. Examination of the left wrist shows negative carpal tunnel compression test negative Tinel sign, positive Phalen test. Coding Level of Care Code Off vis,est,level 3 Diagnoses Carpal tunnel syndrome of left wrist G56.02 Laterality: left Time Spent (min) 30 Assessment and Plan Assessment and Plan (1) Carpal tunnel syndrome: Status: Acute Qualifiers: Laterality: left Qualified Code(s): G56.02 - Carpal tunnel syndrome, left upper limb Plan I reviewed her EMG done recently which shows mild to moderate carpal tunnel syndrome on the left side. She is 1 month status post right-sided carpal tunnel release surgery and has had good improvement. She has significant clinical symptoms that correlate with carpal tunnel syndrome on the left side and she would like to address this with surgical release. I again went over all risk benefits and alternatives to left carpal tunnel release surgery. The risks include but are not limited to infection, bleeding, hematoma formation, nerve injury, incomplete release, need for further surgeries, recurrent carpal tunnel syndrome, persistent numbness and pain and weakness, stiffness. Patient understands and agrees to proceed with surgery. Consent was signed.
[2023-04-01] MEDS: Cefazolin 2 GM in 0.9% Normal Saline (100mL Bag) 100 ML IV (07:53)
[2023-04-01] MEDS: Lidocaine 1% (20 ml mdv) 20 ML Vial (08:04)
[2023-04-01] MEDS: Ropivacaine 0.5% 30 ML Vial (08:04)
[2023-04-01 08:23] VITALS: BP 140/71; BP 153/90; PULSE 67; RESP 18; TEMP 37.3; O2SAT 100
[2023-04-01 08:25] VITALS: BP 140/75; BP 153/90; PULSE 71; RESP 18; O2SAT 94
[2023-04-01 08:30] VITALS: BP 139/78; BP 153/90; PULSE 67; RESP 18; O2SAT 99
[2023-04-01 08:35] VITALS: BP 145/74; BP 153/90; PULSE 66; RESP 18; TEMP 36.2; O2SAT 97
--- NOTE | 2023-04-01 08:54 | OP.PCM_ITS ---
Problems Associated Problem List Diagnoses (1) Carpal tunnel syndrome: Report of Operation Date of Procedure: 04/01/23 Description of Surgical Findings:: ATTENDING SURGEON: Carson Guevara MD MEDIA SERVICES SPECIALIST: none PREOPERATIVE DIAGNOSIS: Left carpal tunnel syndrome. POSTOPERATIVE DIAGNOSIS: Left carpal tunnel syndrome. PROCEDURE PERFORMED: Left open carpal tunnel release. CPT 39012 INDICATIONS FOR THE PROCEDURE: The patient is a 63-year-old lady, who presents w ith numbness in radial fingers and EMG, consistent with carpal tunnel syndrome. She recovered well from right-sided carpal tunnel release, and is here for the left side now with similar symptoms. All conservative management has failed. After a discussion of the risks and benefits of the procedure, consent was signed for the procedure. DETAILS OF PROCEDURE: Patient was met in the preoperative holding area and the correct side was marked as the operative extremity. The patient was brought back to the operative suite and a hand table was placed. A tourniquet was placed. A timeout was performed which correctly identified the procedure to be performed, the operative site as well as the team members. Next, MAC anesthesia was induced. Local infiltration of 1% lidocaine mixed with 0.5% ropivacaine was infiltrated in the volar wrist. Next, the arm was prepped and draped in a sterile fashion. A timeout was performed again that confirmed the site and the procedure. Next, the patient's arm was exsanguinated using the Esmarch bandage and the tourniquet was inflated to 250 mmHg. A 3 cm incision was made longitudinally in line between the middle & ring ray from Haley's cardinal line to the wrist crease. Sharp dissection was used to the level of the palmar fascia. This was incised in line with the incision in line with its fibers. Kasden retractors used to retract the fat and the fibers out of the way and revealed the transverse carpal ligament. This was incised in the proximal distal fashion to the level of the palmar fat. Once we saw this, we retracted back in order to release the proximal end of the carpal tunnel ligament. The median nerve was visualized in its entirety throughout this part of the procedure. There were no masses in the carpal tunnel noted. The nerve did not look very hyperemic. Once I was satisfied with the release and it was checked both proximally and distally with a finger in the incision, it was irrigated with copious amounts of normal saline. Wound was then closed with 4-0 nylon in interrupted fashion. Skin was cleaned and the tourniquet was let down. The wounds were dressed with Adaptic, gauze, Webril and a sterile Jeffy wrap. Next, the patient was transported to the PACU in stable condition. I was present for the entire case. ESTIMATED BLOOD LOSS: Minimal. COMPLICATIONS: None. DISPOSITION: The patient will be discharged home when pain is controlled from PACU. Follow up in 2 weeks to get sutures removed. Light weightbearing restrictions. Procedures Musculoskeletal [id number]: Other Procedure See Report
[2023-04-01 10:06] VITALS: BP 115/50; BP 153/90; PULSE 66; RESP 16; TEMP 36.4; O2SAT 96
== END 2023-04-01 10:07 | disposition home or self-care (01) ==
LOC: SDC 05:59 → AC 06:00
PROVIDERS: PCP Family Medicine; Referring Provider Orthopaedic Surgery Orthopaedic Surgery of the Spine; Visit Provider Orthopaedic Surgery Orthopaedic Surgery of the Spine
PROC: (CPT 64721; principal; 2023-04-01 07:15)
DX: G56.02 Carpal tunnel syndrome, left upper limb (principal); I10 Essential (primary) hypertension; F32.9 Major depressive disorder, single episode, unspecified; Z90.711 Acquired absence of uterus with remaining cervical stump; Z98.1 Arthrodesis status
CPT/HCPCS: 64721; 01810; J7120; J2405

== ENCOUNTER → 2023-04-30 | Outpatient (CLI) | payer OTHER, SELFPAY ==
--- NOTE | 2023-04-30 14:56 | BI_ITS ---
MAMMOGRAPHY - BILATERAL SCREENING REASON FOR EXAM: Female, 63 years old. Routine annual screening examination. PERTINENT HISTORY: Remote left breast biopsy TECHNIQUE: Digital bilateral breast sandra (3D mammographic acquisition) in the CC and MLO projections. 2-D mediolateral oblique (MLO) and craniocaudad (CC) views of both breasts were obtained. CAD: Full Field Digital Mammography with Computer Added Detection was performed. COMPARISON: Comparison is made with prior study dated April 12, 2022 and September 19, 2020. FINDINGS: Breast Composition: The breasts are almost entirely fatty. There are no dominant masses or suspicious calcifications. A tissue clip marker is once again seen within the 7.9 mm well-defined nodule in the central upper lateral portion of the left breast. Stable prominent venous markings in both breasts. No other significant abnormalities are identified. There has been no significant change since the prior study. BI/SCRN MAMM (CAD)W/SANDRA BILAT IMPRESSION: Stable bilateral screening mammogram. Yearly follow-up mammogram recommended. (A) ASSESSMENT CATEGORY: BIRADS Category 2: Benign. A letter regarding these results will be sent to the patient by the facility within 30 days. Approximately 10% of breast cancers are not detected by mammography. A normal mammogram should not delay biopsy of a clinically suspicious abnormality. [id number] Electronically Signed: Jorge Herrmann MD at 10:24 EDT ,
== END | disposition home or self-care (01) ==
LOC: OPBI 14:55
PROVIDERS: PCP Family Medicine; Referring Provider Family Medicine; Visit Provider Family Medicine
DX: Z12.31 Encounter for screening mammogram for malignant neoplasm of breast (principal)
CPT/HCPCS: 77063; 77067

== ENCOUNTER → 2023-05-05 | Outpatient (CLI) | payer OTHER, SELFPAY ==
[2023-05-09 11:09] LABS: HPV APTIMA, High Risk Negative (Negative)
[2023-05-09 16:37] LABS: HPV Reflexed? NOT INDICATED
== END | disposition home or self-care (01) ==
PROVIDERS: PCP Family Medicine; Visit Provider Nurse Practitioner Family
DX: Z12.4 Encounter for screening for malignant neoplasm of cervix (principal)
CPT/HCPCS: 88175; G0145

== ENCOUNTER → 2023-11-25 | Outpatient (CLI) | payer OTHER, SELFPAY ==
[2023-11-25 15:52] LABS: Absolute Neutrophil Count 5.6 X10^3/uL (2.0-7.7); Basophil# 0.02 X10^3/uL; Basophil% 0.3 % (0-1); Eosinophil# 0.03 X10^3/uL; Eosinophils% 0.4 % (0-5); Hematocrit 32.1 % (37-47); Hemoglobin 10.5 g/dL (12.0-15.0); Lymphocyte % 21.8 % (19-41); Mean Corp Hgb Conc 32.7 g/dL (32-36); Mean Corpuscular Hgb 30.1 pg (27.0-32.0); Mean Platelet Vol. 12.8 fl (6.2-12.0); Monocyte# 0.45 X10^3/uL; Monocyte% 5.8 % (0-10); NRBC Flagged by Analyzer 0 % (0-5); Neutrophil # 5.59 X10^3/uL (2.7-7.7); Neutrophil % 71.4 % (47-70); Platelet Count 291 K/mm3 (150-450); RBC Distribution Width CV 13.8 % (11.6-14.6); RBC Distribution Width SD 46.8 fl (35.1-43.9); Red Blood Count 3.49 M/mm3 (4.2-5.4); White Blood Count 7.8 K/mm3 (4.4-11.0)
[2023-11-25 15:56] LABS: Erythrocyte Sedimentation Rate 15 mm/hr (0-30)
[2023-11-25 16:47] LABS: ALB/GLOB Ratio 0.7 RATIO (0.9-2.4); AST(SGOT) 23 U/L (15-37); Alanine Aminotransfer ALT/SGPT 24 U/L (13-56); Albumin, Serum 2.6 g/dL (3.2-5.0); Alkaline Phosphatase 116 U/L (45-117); Anion Gap 10 (5-15); BUN 42 mg/dL (7-18); BUN/Creat Ratio 36.2 RATIO (10-20); Calcium,Total 8.9 mg/dL (8.5-10.1); Chloride 101 mmol/L (98-107); Cholesterol 133 mg/dL (200); Creatinine, Serum 1.16 mg/dL (0.55-1.02); EST Glomerular Filtration Rate 50 mL/min (>60); Est Glom Filt Rate - Afr Amer 61 mL/min (>60); Globulin 3.9 g/dL (2.2-4.2); Glucose 82 mg/dL (74-106); High Density Lipoprotein 69 mg/dL; Potassium 2.4 mmol/L (3.5-5.1); Protein, Total 6.5 g/dL (6.4-8.2); Rheumatoid Factor < 10.0 IU/mL (<15); Sodium Level 136 mmol/L (136-145); Triglycerides 100 mg/dL; Very Low Density Lipoprotein 20 mg/dL (5-40)
== END | disposition home or self-care (01) ==
LOC: MFPLAB 11:52
PROVIDERS: PCP Family Medicine; Visit Provider Family Medicine
DX: M25.50 Pain in unspecified joint (principal); I10 Essential (primary) hypertension
CPT/HCPCS: 36415; 80053; 80061; 84443; 85025; 85652; 86038; 86140; 86431

== ENCOUNTER → 2024-02-09 | Outpatient (CLI) | payer OTHER, SELFPAY ==
[2024-02-09 15:20] LABS: Absolute Lymphocyte Count 1.37 X10^3/uL (0.83-4.51); Absolute Neutrophil Count 4.9 X10^3/uL (2.0-7.7); Basophil# 0.09 X10^3/uL; Basophil% 1.3 % (0-1); Eosinophil# 0.19 X10^3/uL; Eosinophils% 2.7 % (0-5); Hemoglobin 12.1 g/dL (12.0-15.0); Lymphocyte # 1.37 X10^3/ul (0.83-4.51); Lymphocyte % 19.5 % (19-41); Mean Corp Hgb Conc 31.8 g/dL (32-36); Mean Corpuscular Hgb 30.8 pg (27.0-32.0); Mean Corpuscular Volume 96.7 fL (81-99); Mean Platelet Vol. 12.4 fl (6.2-12.0); Monocyte# 0.46 X10^3/uL; Monocyte% 6.6 % (0-10); NRBC Flagged by Analyzer 0 % (0-5); Neutrophil # 4.88 X10^3/uL (2.7-7.7); Neutrophil % 69.6 % (47-70); Platelet Count 247 K/mm3 (150-450); RBC Distribution Width CV 13.2 % (11.6-14.6); RBC Distribution Width SD 47.3 fl (35.1-43.9); RET-HE 35.3 pg (30-35); Red Blood Count 3.93 M/mm3 (4.2-5.4); Reticulocyte Count 1.91 % (0.5-1.5)
[2024-02-09 18:19] LABS: CRP < 2.90 mg/L (0.0-3.0); Iron 100 ug/dL (50-170); Iron Binding Capacity,Total 229 ug/dL (250-450)
[2024-02-12 13:07] LABS: ANTINUCLEAR ANTIBODIES DIRECT Negative (Negative)
== END | disposition home or self-care (01) ==
LOC: MFPLAB 13:44
PROVIDERS: PCP Family Medicine; Referring Provider Family Medicine; Visit Provider Family Medicine
DX: D64.9 Anemia, unspecified (principal); R79.82 Elevated C-reactive protein (CRP)
CPT/HCPCS: 36415; 83540; 83550; 85025; 85045; 86038; 86140

== ENCOUNTER → 2024-02-23 | Outpatient (CLI) | payer OTHER, SELFPAY ==
[2024-02-23 16:34] LABS: Anion Gap 10 (5-15); BUN 20 mg/dL (7-18); BUN/Creat Ratio 15.3 RATIO (10-20); Calcium,Total 8.8 mg/dL (8.5-10.1); Chloride 98 mmol/L (98-107); Creatinine, Serum 1.31 mg/dL (0.55-1.02); EST Glomerular Filtration Rate 44 mL/min (>60); Est Glom Filt Rate - Afr Amer 53 mL/min (>60); Glucose 74 mg/dL (74-106); Potassium 2.8 mmol/L (3.5-5.1); Sodium Level 134 mmol/L (136-145)
== END | disposition home or self-care (01) ==
LOC: MFPLAB 12:01
PROVIDERS: PCP Family Medicine; Referring Provider Family Medicine; Visit Provider Family Medicine
DX: E87.6 Hypokalemia (principal)

== ENCOUNTER → 2024-03-02 | Outpatient (CLI) | payer OTHER, SELFPAY ==
[2024-03-02 18:12] LABS: Anion Gap 9 (5-15); BUN 20 mg/dL (7-18); BUN/Creat Ratio 20.2 RATIO (10-20); Calcium,Total 8.3 mg/dL (8.5-10.1); Chloride 96 mmol/L (98-107); Creatinine, Serum 0.99 mg/dL (0.55-1.02); EST Glomerular Filtration Rate 60 mL/min (>60); Est Glom Filt Rate - Afr Amer 73 mL/min (>60); Glucose 97 mg/dL (74-106); Potassium 2.6 mmol/L (3.5-5.1); Sodium Level 131 mmol/L (136-145)
== END | disposition home or self-care (01) ==
LOC: MFPLAB 15:53
PROVIDERS: PCP Family Medicine; Referring Provider Family Medicine; Visit Provider Family Medicine
DX: N28.9 Disorder of kidney and ureter, unspecified (principal)
CPT/HCPCS: 36415; 80048

== ENCOUNTER → 2024-03-08 | Outpatient (CLI) | payer OTHER, SELFPAY ==
[2024-03-08 18:11] LABS: Anion Gap 11 (5-15); BUN 14 mg/dL (7-18); BUN/Creat Ratio 14.4 RATIO (10-20); Calcium,Total 8.5 mg/dL (8.5-10.1); Chloride 102 mmol/L (98-107); Creatinine, Serum 0.98 mg/dL (0.55-1.02); EST Glomerular Filtration Rate 61 mL/min (>60); Est Glom Filt Rate - Afr Amer 74 mL/min (>60); Glucose 82 mg/dL (74-106); Potassium 3.7 mmol/L (3.5-5.1); Sodium Level 133 mmol/L (136-145)
[2024-03-09 10:19] LABS: Osmolality, Serum 278 mOsm/KG (280-301)
== END | disposition home or self-care (01) ==
PROVIDERS: PCP Family Medicine; Referring Provider Family Medicine; Visit Provider Family Medicine
DX: E87.6 Hypokalemia (principal); I10 Essential (primary) hypertension
CPT/HCPCS: 36415; 80048; 83930; 84443

== ENCOUNTER → 2024-03-22 | Outpatient (CLI) | payer OTHER, SELFPAY ==
[2024-03-22 20:01] LABS: Anion Gap 7 (5-15); BUN 12 mg/dL (7-18); BUN/Creat Ratio 13.9 RATIO (10-20); Calcium,Total 8.7 mg/dL (8.5-10.1); Chloride 106 mmol/L (98-107); Creatinine, Serum 0.86 mg/dL (0.55-1.02); EST Glomerular Filtration Rate 70 mL/min (>60); Est Glom Filt Rate - Afr Amer 85 mL/min (>60); Glucose 88 mg/dL (74-106); Potassium 4.5 mmol/L (3.5-5.1); Sodium Level 137 mmol/L (136-145)
== END | disposition home or self-care (01) ==
LOC: MFPLAB 14:34
PROVIDERS: PCP Family Medicine; Referring Provider Family Medicine; Visit Provider Family Medicine
DX: I10 Essential (primary) hypertension (principal)
CPT/HCPCS: 36415; 80048

== ENCOUNTER 2024-05-21 19:12 | Emergency (ER) | payer OTHER, SELFPAY ==
[2024-05-21] VITALS (18 sets, daily range): BP systolic 75–115; BP diastolic 33–85; PULSE 84–97; RESP 0–18; TEMP 35.9–36.7; O2SAT 97–100; BMI 38.7
--- NOTE | 2024-05-21 19:26 | EX.ED.DYSGE1 ---
HPI History of Present Illness Chief Complaint: Nausea/Vomiting Detail of Chief Complaint: Upper abdominal pain, nausea and vomiting, abnormal bowel movements and no Informant: patient Onset/Context/Timing Onset: Days (Approximately 3 days ago) Context: Sudden Onset Timing: Continuous and Waxes and wanes Quality: Upper abdominal pain and bloating sensation Location: Upper abdomen midline Current Severity: Mild Maximum Severity: Moderate Worsened by: Attempt to drink anything Relieved by: Nothing Associated Symptoms Associated Symptoms: Has not had a normal bowel movement in several days and reports no flatus t Narrative Narrative: Patient is a 64-year-old woman status post gastric bypass surgery by Dr. Ramirez at [facility] 12 years ago. She presents with midline upper abdominal pain with nausea and vomiting for the past 3 days. She states her emesis is frothy because she had a Leslee-en-Y. She has not had a normal bowel movement in several days. She does not recall last time she had a bowel movement. She reports she has not passed any gas today. She does feel bloated and distended. She denies fever, chills night sweats. HEENT is remarkable for dry mouth and thirst. She did not endorse orthostatic symptoms. She reports decreased urine output and her urine is dark. She denies dysuria or hematuria. She denies low back pain or flank pain. There is no history of pancreatitis. Prior similar symptoms: No Recent Illness/Hospitalization: No [facility] Medical History Nondisplaced fracture of fifth left metatarsal bone Left foot pain History of steroid therapy Wears glasses Depression Anxiety Walker as ambulation aid Arthritis Non-smoker CPAP (continuous positive airway pressure) dependence Asthma History of pain when walking History of echocardiogram History of stress test Hypertension Home Medications ?Medication ?Instructions ?Recorded ?Last Taken ?Type losartan 50 mg-hydrochlorothiazide 1 tab PO BID 12/07/19 Unknown History 12.5 mg tablet nabumetone 500 mg tablet 1,000 mg PO BID 12/07/19 Unknown History cholecalciferol (vitamin D3) 50 50 mcg PO DAILY 01/31/20 Unknown History mcg (2,000 unit) capsule escitalopram oxalate 20 mg tablet 20 mg PO DAILY 01/31/20 02/11/23 History ferrous sulfate 325 mg (65 mg 325 mg PO DAILY 01/31/20 Unknown History iron) tablet (Feosol) gabapentin 300 mg capsule 400 mg PO TID 01/31/20 02/11/23 History albuterol sulfate 90 mcg/actuation 1 inh inhalation Q6H PRN sob 10/31/20 Unknown History aerosol inhaler biotin 10,000 mcg capsule 10,000 mcg PO DAILY 10/31/20 Unknown History diclofenac sodium 1 % topical gel 1 ea topical PRN PRN Pain 10/31/20 Unknown History (Voltaren Arthritis Pain) lidocaine 5 % topical patch 1 patch topical DAILY PRN Pain 10/31/20 Unknown History acetaminophen 325 mg capsule 650 mg (2 x 325 mg) PO Q6H PRN 02/11/23 Unknown Rx pain #40 caps tizanidine 2 mg tablet 1 mg PO QHS PRN PRN muscle 05/21/24 Unknown History spasticity Allergy/AdvReac Type Severity Reaction Status Date / Time povidone-iodine Allergy Severe Rash Verified 05/21/24 19:13 Surgical History History of carpal tunnel surgery of left wrist History of carpal tunnel surgery of right wrist Hx of shoulder surgery Hx of colonoscopy History of esophagogastroduodenoscopy (EGD) Hx of fusion of cervical spine History of partial hysterectomy History of S/P panniculectomy Hx of gastric bypass Social History Smoking Status: Never smoker ROS ROS ED Constitutional Constitutional ED: Denies chills, fever(s), subjective or sweats Eyes Eyes: Denies blurry vision or change in vision ENT ENT ED: Denies ear pain, rhinorrhea or sore throat Cardiovascular Cardiovascular: Denies chest pain, orthopnea, palpitations or paroxysmal nocturnal dyspnea Respiratory/Chest Respiratory/Chest: Denies cough, dyspnea, dyspnea on exertion, orthopnea or paroxysmal nocturnal dyspnea Gastrointestinal Gastrointestinal: Reports abdominal pain, constipation, nausea and vomiting; Denies diarrhea or melena Genitourinary Genitourinary ED: Reports other Details: Dark urine with decreased output ; Denies dysuria, hematuria or urinary frequency Musculoskeletal Musculoskeletal: Denies arthralgias, back pain or myalgias Integumentary Reports Abrasions; Denies rash Neurologic Neurologic: Denies weakness Psychiatric Psychiatric: Denies anxiety or depression Endocrine Endocrinology: Denies cold intolerance or heat intolerance Hematologic/Lymphatic Hematologic/Lymphatic: Reports systems reviewed and no addt'l complaints, except as documented EXAM Physical Exam Const Vital Signs: 05/21/24 19:15 05/21/24 21:00 05/21/24 23:00 Temperature 96.7 F L Temperature Source Oral Pulse Rate 88 97 91 Respiratory Rate 18 18 18 Blood Pressure 104/62 111/69 100/72 Blood Pressure Mean 76 83 81 Pulse Ox 100 99 100 Oxygen Delivery Method Room Air Room Air Room Air 05/21/24 23:01 Temperature 98.1 F Temperature Source Pulse Rate 87 Respiratory Rate 18 Blood Pressure 100/72 Blood Pressure Mean 81 Pulse Ox 98 Oxygen Delivery Method Positive well nourished and well developed Constitutional Narrative: BMI is 38.7. Patient appears ill. General Appearance ED: well developed and NAD; Negative for cyanotic or diaphoretic HEENT Reports dry mucous membranes Mouth ED: Yes dry mucous membranes Mouth: dry mucous membranes Eyes PERRL and EOMs intact bilaterally General Eye ED: Negative for scleral icterus Neck no lymphadenopathy, supple and no JVD Resp normal respiratory effort and clear to auscultation bilaterally Cardio regular rate, regular rhythm, S1 normal heart sound, S2 normal heart sound and no murmurs GI no masses; Negative for non-tender, non-distended or hepatosplenomegaly GI Narrative: Bowel sounds are diminished. Abdomen is tympanitic. There is tenderness predominantly upper quadrants. There are multiple abrasions noted. There is also areas where she has picked at her skin. Inspection: abdominal distention Palpation: soft and guarding LUQ and RUQ Back/Spine no CVA tenderness Extremity normal to inspection General Extremety ED: Negative for tenderness Neuro oriented x3 and CN's II-XII intact bilaterally Sensorium / Orientation: alert Psych mental status grossly normal Skin Skin Narrative: There is no jaundice. Patient is not truly pale. Her skin looks abnormal. MDM MDM MDM Narrative Medical decision making narrative: Differential diagnosis is nausea and vomiting due to viral illness, obstruction, possible biliary disease. Will obtain CT with IV and p.o. contrast since she has had a Leslee-en-Y. Appropriate blood work was ordered. History & Record Review Additional record(s) reviewed:: Prior outpatient record (Seen by orthopedics February 09, 2024 for left knee degenerative joint disease. April 2023 for foot pain by Dr. Ramiro Long. Also in April for carpal tunnel.), Prior ED visit (There are no prior ER visits for review.) and Prior labs Lab Data Attestation: I reviewed the patient's lab results. Lab results narrative: CBC remarkable for mild anemia with normal indices. Basic metabolic panel shows mild hypokalemia. CO2 is normal with an anion gap of 16. Lipase is normal. Lactate was elevated. Electrolytes are remarkable for hypokalemia, potassium 2.8. CO2 is normal. Anion gap is elevated. Lactate is elevated as well at 2.3. Patient is not on metformin or any medicine that should cause an elevated lactate. Labs: Laboratory Results - last 24 hr 05/21/24 19:20 WBC 5.9 RBC 3.49 L Hgb 11.4 L Hct 34.2 L MCV 98.0 MCH 32.7 H MCHC 33.3 RDW Std Deviation 54.5 H RDW Coeff of Min 15.3 H Plt Count 272 MPV 12.1 H Immature Gran % (Auto) 0.300 Neut % (Auto) 66.1 Lymph % (Auto) 26.0 [place] % (Auto) 6.3 Eos % (Auto) 1.0 Baso % (Auto) 0.3 Absolute Neuts (auto) 3.9 Absolute Lymphs (auto) 1.52 Nucleated RBC % 0 Sodium 137 Potassium 2.8 L Chloride 97 L Carbon Dioxide 23.7 Anion Gap 16 H BUN 7 Creatinine 0.85 Estim Creat Clear Calc 73.21 Est GFR (MDRD) Non-Af 77 BUN/Creatinine Ratio 8.0 L Glucose 114 H Lactic Acid 2.3 H* Calcium 8.1 Lipase 18 Lactate may be up due to the fact that she has been hypotensive and secondary to poor perfusion. She probably is hypovolemic since she has had anything to eat or drink for 3 days. Radiography Diagnostic Testing: Clinical Impression(s) from Imaging Studies Abdomen/Pelvis CT 05/21/24 21:10 IMPRESSION: 1. No acute abdominopelvic finding. 2. Findings of severe hepatic steatosis/fibrosis and fluid overload including moderate hepatomegaly, body wall edema, trace left pleural effusion, portal colopathy and small volume ascites. 3. Tiny bibasilar pulmonary nodules, likely noncalcified granulomas or scars. If patient is high risk, recommend follow-up CT chest in 12 months to evaluate for stability. Reading Location: PSYCHIATRIC Management Discussion w/another healthcare provider: Hospitalist (Hospitalist was paged for admission for hypotension due to hypovolemia with lactic acidosis. Dr. Chowdhury does not feel this is due to hypovolemia since her BUN to creatinine ratio not elevated. Since she has had gastric bypass surgery he is reluctant to admit her and recommends transfer to [facility]) Additional Tests and Interventions Additional Tests or Interventions: Patient was treated with Solu-Medrol and Benadryl since she reports rash hives to IV contrast. Treatment and Re-Evaluation :: Son who is a abstractor/EMT spoke to me in the hallway regarding his mother. She has apparently not been caring for self. She has not been as vocal or interactive with family. She is reluctant to speak with them. They have not heard her voice suicidal homicidal thoughts. I informed him that I will have case management see her Comments:: When I went into the room at 2237 to inform patient of her lab results and CAT scan results and her pressure was noted to be 90 systolic. Reviewing the monitor going back 1 to 1.5 hours ago her pressures been in the 70s. This is after a liter of fluid. A second liter of fluid was ordered. She has not seen a GI specialist. Since patient's BUN to creatinine ratio not elevated the hospitalist, Dr. Rahul Chowdhury does not believe this is due to hypovolemia. Since she is status post gastric bypass surgery by Dr. Ramirez recommending transfer to [facility] because of her pain with nausea vomiting and anasarca. Discharge Plan Triage Chief Complaint: Nausea/Vomiting ED Provider: LamLamont Dx/Rx/DC Orders Clinical Impression: Acute hypotension, Hepatic steatosis, Ascites of liver, Pleural effusion on left, Abdominal pain, Depression, Nausea & vomiting, Constipation, Acidosis, lactic, Acute hypokalemia, Anasarca Instructions: NAFLD, ED Ascites, ED Pleural Effusion Prescriptions: No Action nabumetone 500 mg tablet 1,000 mg PO BID losartan-hydrochlorothiazide 50-12.5 mg tablet 1 tab PO BID gabapentin 300 mg capsule 400 mg PO TID escitalopram oxalate 20 mg tablet 20 mg PO DAILY Patient Comments: TAKE 1 TABLET BY MOUTH EVERY DAY cholecalciferol (vitamin D3) 50 mcg (2,000 unit) capsule 50 mcg PO DAILY ferrous sulfate [Feosol] 325 mg (65 mg iron) tablet 325 mg PO DAILY biotin 10,000 mcg Capsule 10,000 mcg PO DAILY lidocaine 5 % Adhesive Patch,Medicated 1 patch TOPICAL DAILY PRN (Reason: Pain) albuterol sulfate 90 mcg/actuation Hfa Aerosol Inhaler 1 inh INHALATION Q6H PRN (Reason: sob) diclofenac sodium [Voltaren Arthritis Pain] 1 % Gel 1 ea TOPICAL PRN PRN (Reason: Pain) acetaminophen 325 mg capsule 650 mg PO Q6H PRN (Reason: pain) Qty: 40 0RF tizanidine 2 mg tablet 1 mg PO QHS PRN PRN (Reason: muscle spasticity) Primary Care Provider: Salvatore Aparicio Referrals: Salvatore Aparicio MD [Primary Care Provider] - 3-5 Days Print Language: Syrian Disposition Disposition: Acute Care Hospital Discharge Location: [facility] Discharge Date/Time: 05/22/24 01:59
[2024-05-21] MEDS: 0.9% Normal Saline (1000mL) 1,000 ML 999 ML IV (19:35)
[2024-05-21] MEDS: Ondansetron 4 MG/2 ML Vial IV (19:36)
[2024-05-21] MEDS: DiphenhydrAMINE 50 MG/ML Syringe IV (19:40)
[2024-05-21 20:02] LABS: Absolute Lymphocyte Count 1.52 X10^3/uL (0.83-4.51); Absolute Neutrophil Count 3.9 X10^3/uL (2.0-7.7); Basophil# 0.02 X10^3/uL; Basophil% 0.3 % (0-1); Eosinophil# 0.06 X10^3/uL; Hematocrit 34.2 % (37-47); Hemoglobin 11.4 g/dL (12.0-15.0); Lymphocyte # 1.52 X10^3/ul (0.83-4.51); Mean Corp Hgb Conc 33.3 g/dL (32-36); Mean Corpuscular Hgb 32.7 pg (27.0-32.0); Mean Platelet Vol. 12.1 fl (6.2-12.0); Monocyte# 0.37 X10^3/uL; Monocyte% 6.3 % (0-10); NRBC Flagged by Analyzer 0 % (0-5); Neutrophil # 3.86 X10^3/uL (2.7-7.7); Neutrophil % 66.1 % (47-70); Platelet Count 272 K/mm3 (150-450); RBC Distribution Width CV 15.3 % (11.6-14.6); RBC Distribution Width SD 54.5 fl (35.1-43.9); Red Blood Count 3.49 M/mm3 (4.2-5.4); White Blood Count 5.9 K/mm3 (4.4-11.0)
[2024-05-21 20:10] LABS: Anion Gap 16 (5-15); BUN 7 mg/dL (4-19); Calcium,Total 8.1 mg/dL (7.6-11.0); Carbon Dioxide 23.7 mmol/L (21.0-32.0); Chloride 97 mmol/L (98-108); Creatinine, Serum 0.85 mg/dL (0.70-1.20); EST Glomerular Filtration Rate 77 (>60); Estimated Creatinine Clearance 73.21 ml/min (50-250); Glucose 114 mg/dL (70-99); Lipase 18 U/L (13-75); Potassium 2.8 mmol/L (3.3-5.1); Sodium Level 137 mmol/L (133-145)
[2024-05-21] MEDS: Methylprednisolone Sod Succ 40 MG/ML VIAL IV (20:45)
--- NOTE | 2024-05-21 21:10 | CT_ITS ---
PROCEDURE: ABDOMEN/PELVIS WITH CONTRAST 05/21/2024 REASON FOR EXAM: STATUS POST LESLEE-EN-Y, NAUSEA AND VOMITING TECHNIQUE: Abdomen and pelvis CT with intravenous contrast. Coronal and Sagittal reconstruction series were provided. PATIENT PREPARATION: Per protocol ORAL CONTRAST: Yes CONTRAST: Isovue 370 VOLUME: 100 mL One or more dose reduction techniques were used (e.g., Automated exposure control, adjustment of the mA and/or kV according to patient size, use of iterative reconstruction technique. RADIATION DOSE SUMMARY: CTDlvol: 35 mGy DLP: 1200 mGycm COMPARISON: None. FINDINGS: Lung bases: Mild cardiomegaly with coronary artery calcifications. Trace left pleural effusion. Tiny bilateral pulmonary nodules (for example within the left lower lobe series 2, image 11). Liver: Moderate hepatomegaly with marked hepatic steatosis. The major portal veins are patent. No biliary ductal dilation. Gallbladder: Surgically absent. Spleen: Unremarkable. Pancreas: Mildly atrophic. Adrenals: No adrenal mass. Kidneys: Nonobstructing right lower pole renal calculus. No hydronephrosis. Bladder: Decompressed. Reproductive Organs: Prior partial hysterectomy. Bowel: Prior Leslee-en-Y gastric bypass. Oral contrast material opacifies theRoux limb to the enteroenteric anastomosis and common channel. The bowel loops are normal in caliber. No oral contrast leakage to suggest anastomotic leak. Mild bowel wall thickening of the colon. Small volume ascites within the pelvic cul-de-sac and right lower quadrant. No pneumoperitoneum. No inflammatory mass in the expected region of the appendix. Lymph nodes: No suspicious lymph node enlargement. Vasculature: Moderate calcific plaque of the aortoiliac vessels. Bones/soft tissues: Moderate body wall edema. Thoracolumbar spondylosis. CT/Abdomen/Pelvis WITH Contrast IMPRESSION: 1. No acute abdominopelvic finding. 2. Findings of severe hepatic steatosis/fibrosis and fluid overload including m oderate hepatomegaly, body wall edema, trace left pleural effusion, portal colopathy and small volume ascites. 3. Tiny bibasilar pulmonary nodules, likely noncalcified granulomas or scars. If patient is high risk, recommend follow-up CT chest in 12 months to evaluate for stability. Reading Location: [id number]
[2024-05-21 21:24] LABS: Lactic Acid 2.3 mmol/L (0.0-2.0)
--- NOTE | 2024-05-21 22:13 | CM.ED ---
Social work Reason for referral: mental health Referral source: Dr. Lam This SW received referral from Dr. Lam due to patient's family being concerned for patient's mental health. Per patient's son during conversation with Dr. Lam, patient's son was concerned patient is depressed, not caring for self, and not sharing things with family members. This SW entered patient's room, introducing self and role at [facility]. Patient stated needing to get PT in home due to literally having to crawl up the steps. Patient stated there are 10 steps to get in patient's home, 3 steps up to get from living room to bathroom, and 3 steps down to get to the bathroom in the basement. Patient reported having a rollator and patient states living with patient's , daughter, and son. Patient states patient's other son lives about 5 minutes away. Patient states having to crawl up the steps for the last 6 weeks and having difficulty with the left side of patient's body over the last 2 months. Patient stated that patient's has to do most of the cooking and patient has had to bath in the kitchen sink because patient cannot do the stairs. Patient states taking Lexapro for depression (prescribed by PCP Markus) and states belief that this is working well. Patient denied feeling suicidal or homicidal and states feeling if patient could get to feeling better, then patient would be able to get back to doing the things patient would like to do. Patient was encouraged to talk with TEREZA Aparicio about a [facility] referral. Patient accepted resources of local counseling and psychiatry, depression coping skills, and a [facility] referral. Patient denied further needs at this time. Dr. Lam updated. Carlie Ortez, DRIVE IN TELLER, STORES DESPATCH HAND
[2024-05-21] MEDS: 0.9% Normal Saline (1000mL) 1,000 ML 1000 ML IV (23:06)
[2024-05-21 23:41] LABS: Reflex Lactate? Y
[2024-05-22] MEDS: Ondansetron 4 MG/2 ML Vial IV (00:02)
[2024-05-22 00:21] VITALS: O2SAT 99
[2024-05-22] MEDS: Albumin Human 25% (100 mL) 25 GM/100 ML BAG IV (00:21)
[2024-05-22 00:24] VITALS: BP 118/80; O2SAT 99
[2024-05-22 00:30] VITALS: BP 115/78; O2SAT 100
[2024-05-22 01:00] VITALS: BP 105/70; PULSE 84; RESP 18; O2SAT 100
[2024-05-22 01:28] LABS: Lactic Acid 1.3 mmol/L (0.0-2.0)
[2024-05-22 01:38] VITALS: BP 110/77; PULSE 101; RESP 21; TEMP 36.7; O2SAT 100
--- NOTE | 2024-05-22 01:57 | ED.RN ---
This RN called report to SHELL Eaton at [facility] at this time.
--- NOTE | 2024-05-27 11:27 | CM.ED ---
Social work Received email from Ashely Anthony with [facility] today. Email stated patient had been called 3 times with voicemails left each time and patient did not respond. Per email, referral is now closed. Carlie Ortez, HEAT TREATER HEAD, FOUR SLIDE MACHINE SETTER
== END 2024-05-22 01:59 | disposition short-term general hospital (02) ==
PROVIDERS: Emergency Provider Emergency Medicine; PCP Family Medicine; Visit Provider Emergency Medicine
DX: R11.2 Nausea with vomiting, unspecified (principal); K76.0 Fatty (change of) liver, not elsewhere classified; E87.6 Hypokalemia; R18.8 Other ascites; E87.20 Acidosis, unspecified; I95.9 Hypotension, unspecified; F32.A Depression, unspecified; K59.00 Constipation, unspecified; Z98.84 Bariatric surgery status; J90 Pleural effusion, not elsewhere classified; I10 Essential (primary) hypertension; Z79.899 Other long term (current) drug therapy; Z90.710 Acquired absence of both cervix and uterus; R10.10 Upper abdominal pain, unspecified
CPT/HCPCS: 74177; 80048; 83605; 83690; 85025; 96361; 96365; 96375; 99285; P9047; Q9967; A4216; J2405

== ENCOUNTER → 2024-06-21 | Outpatient (CLI) | payer OTHER, SELFPAY ==
[2024-06-21 14:59] LABS: Hematocrit 29.4 % (37-47); Hemoglobin 9.1 g/dL (12.0-15.0); Mean Corpuscular Hgb 32.5 pg (27.0-32.0); Mean Platelet Vol. 10.7 fl (6.2-12.0); Platelet Count 337 K/mm3 (150-450); RBC Distribution Width CV 15.2 % (11.6-14.6); RBC Distribution Width SD 59.6 fl (35.1-43.9); White Blood Count 5.5 K/mm3 (4.4-11.0)
[2024-06-21 15:43] LABS: ALB/GLOB Ratio 1.2 RATIO (0.9-2.4); AST(SGOT) 27 U/L (<=31); Alanine Aminotransfer ALT/SGPT 24 U/L (<=34); Alkaline Phosphatase 130 U/L (35-104); Anion Gap 9 (5-15); BUN 8 mg/dL (4-19); BUN/Creat Ratio 13.8 RATIO (10-20); Calcium,Total 8.6 mg/dL (7.6-11.0); Carbon Dioxide 26.2 mmol/L (21.0-32.0); Chloride 107 mmol/L (98-108); Creatinine, Serum 0.55 mg/dL (0.70-1.20); EST Glomerular Filtration Rate 103 (>60); Globulin 2.5 g/dL (2.2-4.2); Glucose 94 mg/dL (70-99); Potassium 4.2 mmol/L (3.3-5.1); Pro- Brain NATRIURETIC PEPTIDE 9935 pg/mL (<=900); Protein, Total 5.5 g/dL (5.9-8.4); Sodium Level 142 mmol/L (133-145); Total Bilirubin 0.58 mg/dL (0.00-1.30)
== END | disposition home or self-care (01) ==
LOC: LAB 14:22
PROVIDERS: PCP Family Medicine; Referring Provider Internal Medicine Cardiovascular Disease; Visit Provider Internal Medicine Cardiovascular Disease
DX: I50.21 Acute systolic (congestive) heart failure (principal)
CPT/HCPCS: 36415; 80053; 83880; 85027

== ENCOUNTER → 2024-07-22 | Outpatient (CLI) | payer OTHER, SELFPAY ==
[2024-07-22 18:28] LABS: Ferritin 73 ng/mL (22-378); Pro- Brain NATRIURETIC PEPTIDE 8342 pg/mL (<=900)
[2024-07-22 18:37] LABS: Absolute Lymphocyte Count 1.23 X10^3/uL (0.83-4.51); Absolute Neutrophil Count 3.2 X10^3/uL (2.0-7.7); Basophil# 0.06 X10^3/uL; Basophil% 1.2 % (0-1); Eosinophil# 0.17 X10^3/uL; Eosinophils% 3.4 % (0-5); Hematocrit 32.8 % (37-47); Hemoglobin 10.1 g/dL (12.0-15.0); Lymphocyte # 1.23 X10^3/ul (0.83-4.51); Lymphocyte % 24.4 % (19-41); Mean Corp Hgb Conc 30.8 g/dL (32-36); Mean Corpuscular Hgb 31.2 pg (27.0-32.0); Mean Corpuscular Volume 101.2 fL (81-99); Mean Platelet Vol. 11.5 fl (6.2-12.0); Monocyte# 0.42 X10^3/uL; Monocyte% 8.3 % (0-10); NRBC Flagged by Analyzer 0 % (0-5); Neutrophil # 3.15 X10^3/uL (2.7-7.7); Neutrophil % 62.5 % (47-70); Platelet Count 244 K/mm3 (150-450); RBC Distribution Width CV 14.2 % (11.6-14.6); RBC Distribution Width SD 53.4 fl (35.1-43.9); Red Blood Count 3.24 M/mm3 (4.2-5.4); Reticulocyte Count 2.63 % (0.5-1.5)
[2024-07-22 18:52] LABS: AST(SGOT) 30 U/L (<=31); Alanine Aminotransfer ALT/SGPT 14 U/L (<=34); Albumin, Serum 2.8 g/dL (3.4-4.8); Alkaline Phosphatase 113 U/L (35-104); Anion Gap 11 (5-15); BUN 9 mg/dL (4-19); BUN/Creat Ratio 14.5 RATIO (10-20); Calcium,Total 8.3 mg/dL (7.6-11.0); Carbon Dioxide 25.6 mmol/L (21.0-32.0); Chloride 108 mmol/L (98-108); EST Glomerular Filtration Rate 101 (>60); Globulin 2.8 g/dL (2.2-4.2); Glucose 72 mg/dL (70-99); Iron 49 ug/dL (50-170); Iron Binding Capacity,Unsat 126 ug/dL (228-428); Potassium 3.6 mmol/L (3.3-5.1); Protein, Total 5.6 g/dL (5.9-8.4); Sodium Level 145 mmol/L (133-145); Total Bilirubin 0.54 mg/dL (0.00-1.30)
[2024-07-22 19:05] LABS: Iron Binding Capacity,Total 175 ug/dL (250-450)
[2024-07-24 05:07] LABS: Prealbumin 8 mg/dL (10-36)
== END | disposition home or self-care (01) ==
LOC: MFPLAB 15:19
PROVIDERS: PCP Family Medicine; Referring Provider Family Medicine; Visit Provider Family Medicine
DX: D64.9 Anemia, unspecified (principal); I50.9 Heart failure, unspecified; R53.81 Other malaise
CPT/HCPCS: 36415; 80053; 82728; 83540; 83550; 83880; 84134; 84443; 85025; 85045

== ENCOUNTER → 2024-07-29 | Outpatient (CLI) | payer OTHER, SELFPAY ==
--- NOTE | 2024-07-29 14:24 | ECHOL_ITS ---
Reason For Study Reason For Study: CHF Procedure This was a limited 2D transthoracic echocardiogram. The study was technically difficult. Exam performed in department. Left Ventricle Normal LV size. The estimated ejection fraction is 55 %. No evidence for diastolic dysfunction. Lateral hypokinesis. Right Ventricle Normal RV size. Normal systolic function. Atria The left and right atria are normal. No doppler evidence for ASD. Mitral Valve There is no mitral valve stenosis. Trivial mitral valve insufficiency. Tricuspid Valve There is no tricuspid stenosis. Mild tricuspid valve insufficiency. Pulmonary artery systolic pressure is 50 mmHg. Aortic Valve Trisinus/trileaflet aortic valve. There is no aortic stenosis. Trivial aortic valve insufficiency. Pulmonic Valve There is no pulmonic valvular stenosis. No pulmonic valve insufficiency. Great Vessels Normal sized aortic root. Pericardium/Pleural No pericardial effusion. MMode/2D Measurements & Calculations LVIDd: 5.4 cm IVSd: 0.80 cm LA dimension: 4.0 cm LVIDs: 4.1 cm LVPWd: 1.0 cm RVDd: 4.0 cm FS: 24.3 % LVAd ap4: 35.4 cm2 SV(MOD-sp4): 63.4 ml SV(sp4-el): 67.8 ml LVLd ap4: 8.3 cm SI(MOD-sp4): 33.3 ml/m2 EDV(MOD-sp4): 124.1 ml EDV(sp4-el): 129.1 ml LVAs ap4: 22.6 cm2 LVLs ap4: 7.1 cm ESV(MOD-sp4): 60.7 ml ESV(sp4-el): 61.2 ml EF(MOD-sp4): 51.1 % EF(sp4-el): 52.6 % Doppler Measurements & Calculations AI max thaddeus: 338.2 cm/sec TR max thaddeus: 343.1 cm/sec AI max P.8 mmHg TR max P.1 mmHg AI dec slope: 163.1 cm/sec2 AI P1/2t: 607.5 msec ECHO/Echo, Limited Study Interpretation Summary The estimated ejection fraction is 55 %. No evidence for diastolic dysfunction. Lateral hypokinesis Trivial mitral valve insufficiency. Trivial aortic valve insufficiency. Ordering Physician: Lucio Bob Referring Physician: Lucio Bob Performed By: Enrique Martinez RCS
== END | disposition home or self-care (01) ==
LOC: CVS 14:21
PROVIDERS: PCP Family Medicine; Referring Provider Internal Medicine Cardiovascular Disease; Visit Provider Internal Medicine Cardiovascular Disease
DX: I50.21 Acute systolic (congestive) heart failure (principal)
CPT/HCPCS: 93308

== ENCOUNTER → 2024-08-09 | Outpatient (CLI) | payer OTHER, SELFPAY ==
[2024-08-09 19:03] LABS: Anion Gap 10 (5-15); BUN 9 mg/dL (4-19); BUN/Creat Ratio 14.6 RATIO (10-20); Calcium,Total 8.4 mg/dL (7.6-11.0); Carbon Dioxide 28.3 mmol/L (21.0-32.0); Chloride 102 mmol/L (98-108); Creatinine, Serum 0.58 mg/dL (0.70-1.20); EST Glomerular Filtration Rate 102 (>60); Glucose 83 mg/dL (70-99); Potassium 3.3 mmol/L (3.3-5.1); Sodium Level 141 mmol/L (133-145)
== END | disposition home or self-care (01) ==
LOC: MFPLAB 15:58
PROVIDERS: PCP Family Medicine; Referring Provider Nurse Practitioner Gerontology; Visit Provider Nurse Practitioner Gerontology
DX: Z51.81 Encounter for therapeutic drug level monitoring (principal); Z79.899 Other long term (current) drug therapy
CPT/HCPCS: 36415; 80048

== ENCOUNTER → 2024-12-20 | Outpatient (CLI) | payer OTHER, SELFPAY ==
[2024-12-20 17:59] LABS: Hematocrit 28.8 % (37-47); Hemoglobin 8.8 g/dL (12.0-15.0); Immature Granulocytes Count 0.030 X10^3/uL (0.0-0.0); Mean Corp Hgb Conc 30.6 g/dL (32-36); Mean Corpuscular Volume 99.0 fL (81-99); Mean Platelet Vol. 10.8 fl (6.2-12.0); NRBC Flagged by Analyzer 0 % (0-5); Platelet Count 292 K/mm3 (150-450); RBC Distribution Width CV 15.3 % (11.6-14.6); RBC Distribution Width SD 55.2 fl (35.1-43.9); Red Blood Count 2.91 M/mm3 (4.2-5.4); White Blood Count 6.6 K/mm3 (4.4-11.0)
== END | disposition home or self-care (01) ==
LOC: MTLAB 15:47
PROVIDERS: PCP Family Medicine
DX: D64.89 Other specified anemias (principal)
CPT/HCPCS: 36415; 85025

== ENCOUNTER → 2025-01-18 | Outpatient (CLI) | payer OTHER, SELFPAY ==
[2025-01-18 17:42] LABS: Hematocrit 35.1 % (37-47); Hemoglobin 11.3 g/dL (12.0-15.0); Immature Granulocytes Count 0.010 X10^3/uL (0.0-0.0); Immature Reticulocyte Fraction 7.10 % (3.00-15.90); Mean Corp Hgb Conc 32.2 g/dL (32-36); Mean Corpuscular Volume 97.8 fL (81-99); Mean Platelet Vol. 12.4 fl (6.2-12.0); NRBC Flagged by Analyzer 0 % (0-5); Platelet Count 217 K/mm3 (150-450); RBC Distribution Width CV 13.6 % (11.6-14.6); RBC Distribution Width SD 48.8 fl (35.1-43.9); Red Blood Count 3.59 M/mm3 (4.2-5.4); Reticulocyte Count 1.60 % (0.5-1.5); White Blood Count 5.4 K/mm3 (4.4-11.0)
[2025-01-18 17:57] LABS: Ferritin 62 ng/mL (22-378); Iron 56 ug/dL (50-170)
== END | disposition home or self-care (01) ==
LOC: MTLAB 15:01
PROVIDERS: PCP Family Medicine; Referring Provider Family Medicine; Visit Provider Family Medicine
DX: D64.9 Anemia, unspecified (principal)
CPT/HCPCS: 36415; 82728; 83540; 85025; 85045